=== PATIENT | female | born 1930 | race Caucasian/White ===

== ENCOUNTER 2016-08-28 10:50 | Emergency (ER) | payer BC, OTHER ==
[2016-08-28 10:56] VITALS: TEMP 98.4; BMI 21.6
--- NOTE | 2016-08-28 11:09 | PDOC ---
History of Present Illness - General History Source: Patient, Family, Old Records Exam Limitations: No Limitations - History of Present Illness Initial Comments: 08/28/16 12:08 The patient is a 86 year old female, with a significant past medical history of HTN, ITP, TIA, valved leakage, blocked artery, HLD, kindey cysts and liver cysts who presents to the emergency department with a head injury that occurred today after a fall. She states that she fell backwards on the kitchen floor, hitting her head. She denies any loss of consciousness. She was not able to get up on her own. But she was able to ambulate to from the car into the ED. She denies any other kind of injuries. The patient denies chest pain, shortness of breath, headache and dizziness. Allergies: Penicillin, metoprolol, coreg, clindamycin, Diovan, BENICAR Past surgical history: Appendectomy, varicose veins, tumor removed from ovaries Social history: No alcohol, tobacco or drug use reported <Larry Gudino - Last Filed: 08/28/16 12:08> <Roman Simon - Last Filed: 08/28/16 13:36> - General Chief Complaint: Laceration Stated Complaint: HEAD INJURY/LACERATION Time Seen by Provider: 08/28/16 11:02 Past History <Larry Gudino - Last Filed: 08/28/16 12:08> - Past Medical History Anemia: (ITP) Asthma: No Cancer: No Cardiac Disorders: Yes (valve leakage, blocked artery) CVA: No COPD: No CHF: No Dementia: No Diabetes: No GI Disorders: No Disorders: Yes (Kidney cyst) HTN: Yes Hypercholesterolemia: Yes Liver Disease: Yes (liver cyst) Psychiatric Problems: Yes (ANXIETY.) Seizures: No Thyroid Disease: No - Surgical History 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) Appendectomy: Yes Cardiac Surgery: Yes (Varicose Veins) Cholecystectomy: No Lung Surgery: No Neurologic Surgery: No Orthopedic Surgery: No - Immunization History Immunization Up to Date: Yes - Psycho/Social/Smoking Cessation Hx Anxiety: Yes Suicidal Ideation: No Smoking Status: No Smoking History: Never smoked Have you smoked in the past 12 months: No Number of Cigarettes Smoked Daily: 0 Hx Alcohol Use: No Drug/Substance Use Hx: No Substance Use Type: None Hx Substance Use Treatment: No <Roman Simon - Last Filed: 08/28/16 13:36> - Past Medical History Allergies/Adverse Reactions: Allergies Allergy/AdvReac Type Severity Reaction Status Date / Time penicillin G Allergy Unknown Verified 08/28/16 10:53 carvedilol [From Coreg] Allergy Verified 08/28/16 10:53 metoprolol succinate Allergy Verified 08/28/16 10:53 [From Toprol XL] clindamycin AdvReac Unknown DIARRHEA Verified 08/28/16 10:53 metoprolol AdvReac Unknown Verified 08/28/16 10:53 valsartan [From Diovan] AdvReac Unknown Verified 08/28/16 10:53 ESTRACE CREAM Allergy Uncoded 08/28/16 10:53 BENICAR AdvReac Uncoded 08/28/16 10:53 Home Medications: Ambulatory Orders Atenolol [Tenormin -] 50 mg PO BID 01/07/15 Bupropion HCl [Zyban] 150 mg PO BID 01/07/15 Diazepam 10 mg PO TID PRN 01/07/15 Lisinopril [Prinivil -] 40 mg PO BID 01/07/15 Lovastatin 40 mg PO DAILY 01/07/15 Tramadol HCl [Ultram -] 50 mg PO TID 02/14/15 Review of Systems - Review of Systems Constitutional: No: Chills, Fever HEENTM: No: Recent change in vision Respiratory: No: Shortness of Breath Cardiac (ROS): No: Chest Pain, Syncope ABD/GI: No: Nausea, Vomiting Neurological: No: Headache All Other Systems: Reviewed and Negative <Roman Simon - Last Filed: 08/28/16 13:36> *Physical Exam - Vital Signs Last Vital Signs Temp Pulse Resp BP Pulse Ox 98.4 F 65 18 136/58 98 08/28/16 10:52 08/28/16 10:52 08/28/16 10:52 08/28/16 10:52 08/28/16 10:52 - Physical Exam Comments: 08/28/16 12:09 General: Patient is alert and in no acute distress. Speech is clear and appropriate. Head: (+) 4 mm laceration to temporal region with mild oozing. No underlying scalp hematoma. HEENT: Pupils are equal round and reactive to light, extraocular movements are intact. The tympanic membranes are clear, no hemotympanum. No facial deformity/tenderness, no septal hematoma. The oropharynx is clear. Neck: The trachea is midline, there is no stridor. There is no midline cervical spine tenderness, full range of motion of neck. Chest: Nontender, no ecchymosis or abrasions. Heart: S1-S2, regular rate and rhythm. No murmurs. Lungs: Clear to auscultation bilaterally. Symmetric chest rise. Abdomen: Soft/nontender/nondistended. Bowel sounds are normal. There is no abdominal or flank ecchymosis. Back/Pelvis: There is no midline spine tenderness or step-off. Pelvis is stable and nontender. Extremities: There is no extremity deformity or joint swelling. No focal bony tenderness throughout. 2+ distal pulses throughout. Neuro: Alert and oriented x3. Cranial nerves II through XII are intact. 5 out of 5 motor strength x4 extremities. Finger-nose- finger is intact. No pronator drift. Gait is stable. Skin: No abrasions/hematomas/lacerations. Psych: Affect is appropriate. <Larry Gudino - Last Filed: 08/28/16 12:08> - Vital Signs Last Vital Signs Temp Pulse Resp BP Pulse Ox 98.4 F 65 18 136/58 98 08/28/16 10:52 08/28/16 10:52 08/28/16 10:52 08/28/16 10:52 08/28/16 10:52 <Roman Simon - Last Filed: 08/28/16 13:36> ED Treatment Course - LABORATORY CBC & Chemistry Diagram: 08/28/16 11:41 08/28/16 11:41 - RADIOLOGY Radiograph Interpretation: 08/28/16 12:[address] Reviewed by: Dr. Federico Cheema Impression: No evidence of acute intracranial pathology. Cervical spine CT Reviewed by: Dr. Federico Cheema Impression: No fracture is identified <Larry Gudino - Last Filed: 08/28/16 12:08> - LABORATORY CBC & Chemistry Diagram: 08/28/16 11:41 08/28/16 11:41 - RADIOLOGY Radiology Studies Ordered: Category Date Time Status CERVICAL SPINE CT W/O CONTR [CT] Stat CT Scan 08/28/16 11:[address] WITHOUT CONTRAST [CT] Stat CT Scan 08/28/16 11:02 Ordered <Roman Simon - Last Filed: 08/28/16 13:36> Medical Decision Making - Medical Decision Making 08/28/16 11:24 A portion of this note was documented by scribe services under my direction. I have reviewed the details of the note, within reason, and agree with the documentation with the following case summary and management plan written by me. 86-year-old female with history of hypertension, TIA, ITP with chronic thrombocytopenia (last platelet count was 37 earlier this month) presents with mechanical trip and fall this morning, struck her bottom/low back the ground and then hit the right side of her head on the door frame. No lightheadedness or syncope, no generalized headache or vision change/speech change, no nausea or vomiting. Has been applying pressure to a right scalp wound which continues to bleed, presents for evaluation. Vital signs normal. Well-appearing, seated up in stretcher holding pressure to her scalp Less than half centimeter very superficial laceration to the right temporal scalp with some bruising, no underlying hematoma Remainder of trauma exam is unremarkable 86-year-old female with known thrombocytopenia with minor head injury, small scalp laceration. Check platelets CT head Wound care: will attempt local lido with epi injection, apply one staple 08/28/16 13:31 LACERATION REPAIR: The skin was prepped with Saline. 2% lidocaine with epinephrine was injected subcutaneously for local anesthesia. Normal saline lavage, high pressure, high volume was performed. 3 juan f were placed. Bacitracin was applied. Patient was advised regarding signs and symptoms of infection that would indicate a need to see the doctor immediately, as well as instructions for suture removal. Bleeding improved/resolved after epi injection and juan f. Platelets 64, improved from prior. Remains neuro intact without other complaints. Son at bedside. Both agree with d /c plan, understand strict return criteria. <Roman Simon - Last Filed: 08/28/16 13:36> *DC/Admit/Observation/Transfer - Attestations Scribe Attestion: 08/28/16 12:11 Documentation prepared by Larry Gudino, acting as medical communication specialist for Roman Simon MD <Larry Gudino - Last Filed: 08/28/16 12:08> <Roman Simon - Last Filed: 08/28/16 13:36> Diagnosis at time of Disposition: Chronic ITP (idiopathic thrombocytopenic purpura), Thrombocytopenia Scalp laceration Qualifiers: Encounter type: initial encounter Qualified Code(s): S01.01XA - Laceration without foreign body of scalp, initial encounter Head injury Qualifiers: Encounter type: initial encounter Qualified Code(s): S09.90XA - Unspecified injury of head, initial encounter - Discharge Dispostion Disposition: HOME Condition at time of disposition: Improved - Referrals Referrals: Epifanio Mooney MD [Primary Care Provider] - - Patient Instructions Printed Discharge Instructions: DI for Closed Head Injury, DI for Laceration Repair -- [place] Additional Instructions: Activity as tolerated. Stay hydrated. Your platelet count today is 64, a CAT scan shows no bleeding. Keep the wound clean and dry for 72 hours, then avoid soaking or scrubbing. Return for staple removal in 7-10 days. Continue your medications as previously prescribed by your physician. You should follow up with your primary doctor as soon as possible regarding today's emergency department visit. Return to the emergency department for any new or concerning symptoms, particularly headache or confusion or vomiting or focal weakness, redness or swelling or bleeding.
[2016-08-28] MEDS ORDERED: LIDOCAINE 1%/EPI 1:100000 (20 ML MULTI DOSE VIAL) INF ONE (11:28)
[2016-08-28] MEDS ORDERED: LIDOCAINE 1%/EPI 1:100000 (50 ML MULTI DOSE VIAL) ONE (11:31)
[2016-08-28 12:06] LABS: BASOPHIL 0.9 % (0-2.0); EOSINOPHIL 3.4 % (0-4.5); MCH 30.1 pg (25.7-33.7); MCHC 34.5 g/dl (32.0-36.0); MEAN CELL VOLUME 87.1 fl (80-96); MEAN PLT VOLUME 11.1 fl (7.5-11.1); NEUTROPHILS 73.6 % (42.8-82.8); RDW 14.1 % (11.6-15.6); WHITE BLOOD COUNT 5.9 K/mm3 (4.0-10.0)
[2016-08-28 12:21] LABS: ALBUMIN 4.4 g/dl (3.4-5.0); ANION GAP 8 (8-16); BILIRUBIN,TOTAL 0.8 mg/dL (0.2-1.0); CALCIUM 9.6 mg/dL (8.5-10.1); CO2 32 mmol/L (21-32); CREATININE 0.7 mg/dL (0.55-1.02); GLUCOSE,RANDOM 99 mg/dL (74-106); SGPT/ALT 33 U/L (12-78); TOT PROT 7.3 g/dl (6.4-8.2)
[2016-08-28 12:22] LABS: ALK PHOS 79 U/L (45-117); SGOT/AST 39 U/L (15-37)
[2016-08-28 12:30] LABS: INR 0.97 (0.82-1.09); PROTHROMBIN TIME (PATIENT) 10.7 SEC (9.98-11.88)
[2016-08-28 13:13] LABS: PLATELET COUNT 64 K/MM3 (134-434); PLATELET ESTIMATE DECREASED (NORMAL)
[2016-08-28 14:08] VITALS: BP 151/92; PULSE 70
== END 2016-08-28 14:07 | disposition home or self-care (01) ==
LOC: JER 10:50 → SUPCPDRO 10:50 → JER 14:07
PROC: 0HQ0XZZ Repair Scalp Skin, External Approach (ICD-10-PCS; principal; 2016-08-28)
DX: S01.01XA Laceration without foreign body of scalp, initial encounter (principal); W01.198A Fall on same level from slipping, tripping and stumbling with subsequent striking against other object, initial encounter; Y93.89 Activity, other specified; Y92.010 Kitchen of single-family (private) house as the place of occurrence of the external cause; I10 Essential (primary) hypertension; D69.3 Immune thrombocytopenic purpura; E78.00 Pure hypercholesterolemia, unspecified; F41.9 Anxiety disorder, unspecified; Z86.73 Personal history of transient ischemic attack (TIA), and cerebral infarction without residual deficits; I25.10 Atherosclerotic heart disease of native coronary artery without angina pectoris
CPT/HCPCS: 12001-25; 36415; 70450-TC; 72125-TC; 80053; 85025; 85610; 99283-25

== ENCOUNTER 2016-09-14 13:27 | Emergency (ER) | payer BC, OTHER ==
[2016-09-14 13:33] VITALS: TEMP 98.5; BMI 22.1
--- NOTE | 2016-09-14 14:44 | PDOC ---
History of Present Illness - General History Source: Patient Exam Limitations: No Limitations <Dave Almanzar - Last Filed: 09/14/16 16:01> - General History Source: Patient, Old Records Exam Limitations: No Limitations - History of Present Illness Initial Comments: The patient is an 86 year old female with past medical history of hypertension, Darvocet appear, TIA, coronary disease, hyperlipidemia, kidney cysts, liver cysts who presents with persistent headaches, nausea and generalized weakness. The patient was seen on August 28 s/p mechanical fall and hit the back of her head. She had a CAT scan the head performed which demonstrated no acute findings and had 3 juan f placed. Since her discharge, patient has continued to have headaches, nausea, and general malaise.Patient states that she came to the emergency department today due to the persistence of her symptoms. The patient notes that she did have her juan f removed at her primary care doctor' s office several days ago. Patient is also complaining about some lumbar spine pain since the fall. Denies fevers or chills. Denies vomiting, diarrhea, dysuria. <Cory Proctor - Last Filed: 09/14/16 16:03> - General Chief Complaint: Headache Stated Complaint: headache Time Seen by Provider: 09/14/16 13:35 Past History - Past Medical History Anemia: (ITP) Asthma: No Cancer: No Cardiac Disorders: Yes (valve leakage, blocked artery) CVA: No COPD: No CHF: No Dementia: No Diabetes: No GI Disorders: No Disorders: Yes (Kidney cyst) HTN: Yes Hypercholesterolemia: Yes Liver Disease: Yes (liver cyst) Psychiatric Problems: Yes (ANXIETY.) Seizures: No Thyroid Disease: No - Surgical History 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) Appendectomy: Yes Cardiac Surgery: Yes (Varicose Veins) Cholecystectomy: No Lung Surgery: No Neurologic Surgery: No Orthopedic Surgery: No - Immunization History Immunization Up to Date: Yes - Psycho/Social/Smoking Cessation Hx Anxiety: Yes Suicidal Ideation: No Smoking Status: No Smoking History: Never smoked Have you smoked in the past 12 months: No Number of Cigarettes Smoked Daily: 0 Hx Alcohol Use: No Drug/Substance Use Hx: No Substance Use Type: None Hx Substance Use Treatment: No <Dave Almanzar - Last Filed: 09/14/16 16:01> <Cory Proctor - Last Filed: 09/14/16 16:03> - Past Medical History Allergies/Adverse Reactions: Allergies Allergy/AdvReac Type Severity Reaction Status Date / Time penicillin G Allergy Unknown Verified 09/14/16 13:34 carvedilol [From Coreg] Allergy Verified 09/14/16 13:34 metoprolol succinate Allergy Verified 09/14/16 13:34 [From Toprol XL] clindamycin AdvReac Unknown DIARRHEA Verified 09/14/16 13:34 metoprolol AdvReac Unknown Verified 09/14/16 13:34 valsartan [From Diovan] AdvReac Unknown Verified 09/14/16 13:34 ESTRACE CREAM Allergy Uncoded 09/14/16 13:34 BENICAR AdvReac Uncoded 09/14/16 13:34 Home Medications: Ambulatory Orders Atenolol [Tenormin -] 50 mg PO BID 01/07/15 Bupropion HCl [Zyban] 150 mg PO BID 01/07/15 Diazepam 10 mg PO TID PRN 01/07/15 Lisinopril [Prinivil -] 40 mg PO BID 01/07/15 Lovastatin 40 mg PO DAILY 01/07/15 Tramadol HCl [Ultram -] 50 mg PO TID 02/14/15 Review of Systems - Review of Systems Able to Perform ROS?: Yes Comments:: GENERAL/CONSTITUTIONAL: No fever or chills. No weakness. HEAD, EYES, EARS, NOSE AND THROAT: No change in vision. No ear pain or discharge. No sore throat. CARDIOVASCULAR: No chest pain or shortness of breath. RESPIRATORY: No cough, wheezing, or hemoptysis. GASTROINTESTINAL: No nausea, vomiting, diarrhea or constipation. GENITOURINARY: No dysuria, frequency, or change in urination. MUSCULOSKELETAL: No joint or muscle swelling or pain. No neck or back pain. SKIN: No rash NEUROLOGIC: (+) Headache No vertigo, loss of consciousness, or change in strength/sensation. ENDOCRINE: No increased thirst. No abnormal weight change. HEMATOLOGIC/LYMPHATIC: No anemia, easy bleeding, or history of blood clots. ALLERGIC/IMMUNOLOGIC: No hives or skin allergy. <Cory Proctor - Last Filed: 09/14/16 16:03> *Physical Exam - Vital Signs Last Vital Signs Temp Pulse Resp BP Pulse Ox 98.5 F 72 18 176/79 100 09/14/16 13:28 09/14/16 13:28 09/14/16 13:28 09/14/16 13:28 09/14/16 13:28 <Dave Almanzar - Last Filed: 09/14/16 16:01> - Vital Signs Last Vital Signs Temp Pulse Resp BP Pulse Ox 98.5 F 72 18 176/79 100 09/14/16 13:28 09/14/16 13:28 09/14/16 13:28 09/14/16 13:28 09/14/16 13:28 - Physical Exam Comments: GENERAL: Awake, alert, and fully oriented, in no acute distress HEAD: (+) Well healing granulating scar on right superior head EYES: PERRLA, EOMI, sclera anicteric, conjunctiva clear ENT: Auricles normal inspection, hearing grossly normal, nares patent, oropharynx clear without exudates. Moist mucosa NECK/BACK: (+) Normal ROM, supple, no lymphadenopathy, JVD, or masses. Tenderness approximately L5. Spinal tenderness on palpation. LUNGS: Breath sounds equal, clear to auscultation bilaterally. No wheezes, and no crackles HEART: Regular rate and rhythm, normal S1 and S2, no murmurs, rubs or gallops ABDOMEN: Soft, nontender, normoactive bowel sounds. No guarding, no rebound. No masses EXTREMITIES: Normal range of motion, no edema. No clubbing or cyanosis. No cords, erythema, or tenderness NEUROLOGICAL: Cranial nerves II through XII grossly intact. Normal speech. SKIN: Warm, Dry, normal turgor, no rashes or lesions noted. <Cory Proctor - Last Filed: 09/14/16 16:03> ED Treatment Course - RADIOLOGY Radiology Studies Ordered: Category Date Time Status HEAD CT WITHOUT CONTRAST [CT] Stat CT Scan 09/14/16 13:[address] W/O CONTRAST [CT] Stat CT Scan 09/14/16 13:44 Ordered <Dave Almanzar - Last Filed: 09/14/16 16:01> - RADIOLOGY Radiograph Interpretation: EXAM#: TYPE/EXAM: RESULT: [id number] CT/HEAD CT WITHOUT CONTRAST Status post fall 3 weeks ago. Persistent headaches. CT scan of the brain without intravenous contrast. Since 08/28/2016, there remains generalized volume loss, moderate ventricular dilatation and moderate chronic microvascular ischemic changes. Focal encephalomalacia in the left temporal lobe along the inferior margin of the left basal ganglia again seen. No mass lesion, gross acute infarct or intracranial hemorrhage is identified. There is no shift of the midline structures. The calvarium is intact. Visualized paranasal sinuses and mastoid air cells are well aerated IMPRESSION: No significant interval change or gross acute intracranial pathology is identified. Correlate clinically to determine further evaluation and follow-up Reported By: Caterina Rangel MD 09/14/16 1510 EXAM#: TYPE/EXAM: RESULT: [id number] CT/LUMBAR SPINE CT W/O CONTRAST Status post fall [address] scan of the lumbar spine without intravenous contrast. Coronal and sagittal reconstruction images were obtained. Compared to prior x- rays of the lumbosacral spine dated 01/28/2006 and prior sagittal reformatted images from a CT scan of the abdomen pelvis dated 12/24/2015 There is moderate levoscoliosis of the lumbar spine. The height and alignment of the vertebral bodies appear unremarkable without evidence of a compression fracture or subluxation. Mild degenerative disc disease and vacuum phenomena at T12-L1 and L2-L3 level. There is significant bilateral facet hypertrophy from L3-L4 through L4-L5 level. Mild disc bulge from L2-L3 through L5-S1 level Note is made of a partially included right hepatic cysts measuring approximately 4.7 cm. No paraspinal soft tissue mass is identified. IMPRESSION: Moderate levoscoliosis of the lumbar spine with multilevel mild degenerative disc disease and significant bilateral facet hypertrophy at multiple levels, as well. No gross compression fracture or subluxation is identified. Reported By: Caterina Rangel MD 09/14/16 1553 <Cory Proctor - Last Filed: 09/14/16 16:03> Medical Decision Making - Medical Decision Making 09/14/16 14:44 A portion of this note was documented by scribe services under my direction. I have reviewed the details of the note, within reason, and agree with the documentation with the following case summary and management plan written by me. Patient treated in the ED. Nursing notes are reviewed and incorporated into the medical decision-making. Vital signs reviewed. Peripheral IV access obtained by the nurse, laboratory studies are drawn and sent, reviewed and interpreted by myself. Vital Signs Temp Pulse Resp BP Pulse Ox 98.5 F 72 18 176/79 100 09/14/16 13:28 09/14/16 13:28 09/14/16 13:28 09/14/16 13:28 09/14/16 13:28 86 year old female with past medical history of hypertension, Darvocet appear, TIA, coronary disease, hyperlipidemia, kidney cysts, liver cysts presents with persistent headaches, nausea and generalized weakness. The patient was seen on August 28 and had a mechanical fall and hit the back of her head. She had a CAT scan the head performed which demonstrated no acute findings and had 3 juan f placed. Since her discharge, patient continued to feel headaches and nausea and general malaise. Denies fevers or chills. Denies vomiting, diarrhea, dysuria. Because of the persistence of symptoms, patient came into the ED. As of note, patient did have her juan f removed at her primary care doctor's office several days ago. The wound site appears well and granulating without difficulty. Patient is also complaining about some lumbar spine pain since the fall. Reports she had received no imaging at that time. I suspect the patient likely has a concussion. We'll obtain a CT head given the history of thyroid cytopenia to rule out rebleeding. We'll also obtain a lumbar spine imaging to rule out acute fractures. 09/14/16 15:59 Urine Test Results Urine Color Yellow 09/14/16 14:43 Urine Appearance Clear 09/14/16 14:43 Urine pH 7.0 (4.5-8) 09/14/16 14:43 Ur Specific [place] 1.010 (1.005-1.025) 09/14/16 14:43 Urine Protein Negative (NEGATIVE) 09/14/16 14:43 Urine Glucose (UA) Negative (NEGATIVE) 09/14/16 14:43 Urine Ketones Negative (NEGATIVE) 09/14/16 14:43 Urine Blood 1+ (NEGATIVE) H 09/14/16 14:43 Urine Nitrite Negative (NEGATIVE) 09/14/16 14:43 Urine Bilirubin Negative (NEGATIVE) 09/14/16 14:43 Ur Leukocyte Esterase Negative (NEGATIVE) 09/14/16 14:43 CT head and lumbar spine reviewed. No acute findings. Pt is ambulatory. Likely concussion. Concussion information given to patient and to son. Pt has an appointment with Dr. Mooney right after the ED visit. I discussed the physical exam findings, ancillary test results and final diagnoses with the patient. I answered all of the patient's questions. The patient was satisfied with the care received and felt comfortable with the discharge plan and treatment plan. The patient will call their primary care physician within 24 hours to arrange follow-up and will return to the Emergency Department with any new, persistant or worsening symptoms. <Dave Almanzar - Last Filed: 09/14/16 16:01> *DC/Admit/Observation/Transfer <Dave Almanzar - Last Filed: 09/14/16 16:01> - Attestations Scribe Attestion: Documentation prepared by Cory Proctor, acting as medical assistant cardiology for Dave Almanzar MD. <Cory Proctor - Last Filed: 09/14/16 16:03> Diagnosis at time of Disposition: Concussion Qualifiers: Encounter type: initial encounter Loss of consciousness presence/duration: without LOC Qualified Code(s): S06.0X0A - Concussion without loss of consciousness, initial encounter - Discharge Dispostion Disposition: HOME Condition at time of disposition: Stable - Referrals Referrals: Epifanio Mooney MD [Primary Care Provider] - - Patient Instructions Printed Discharge Instructions: DI for Postconcussion Syndrome, DI for Concussion Additional Instructions: Please bring the copy of your CT results to your doctor. The Head CT shows no acute findings. Please follow up with your regular doctor.
[2016-09-14 15:12] LABS: URINE APPEARANCE Clear; URINE BILIRUBIN Negative (NEGATIVE); URINE GLUCOSE (UA) Negative (NEGATIVE); URINE KETONE Negative (NEGATIVE); URINE LEUK ESTERASE Negative (NEGATIVE); URINE NITRITE Negative (NEGATIVE); URINE PROTEIN Negative (NEGATIVE); URINE UROBILINOGEN 0.2 E.U/dl (0.2-1.0)
[2016-09-14 15:13] LABS: URINE COLOR YELLOW
[2016-09-14] MEDS ORDERED: METOCLOPRAMIDE HCL 10 MG TABLET (FP) PO ONE ×2 (15:20→15:44)
[2016-09-14] MEDS ORDERED: ACETAMINOPHEN 325 MG TABLET (FP) PO ONE (15:20)
[2016-09-14] MEDS ORDERED: ACETAMINOPHEN 325 MG TABLET (FP) ONE (15:44)
[2016-09-14 16:11] VITALS: BP 165/72; PULSE 70
[2016-09-14 19:14] LABS: URINE BLOOD 1+ (NEGATIVE)
== END 2016-09-14 16:12 | disposition home or self-care (01) ==
LOC: FER 13:27
DX: S06.0X0A Concussion without loss of consciousness, initial encounter (principal); I10 Essential (primary) hypertension; Z86.73 Personal history of transient ischemic attack (TIA), and cerebral infarction without residual deficits; F41.9 Anxiety disorder, unspecified; E78.00 Pure hypercholesterolemia, unspecified; D69.3 Immune thrombocytopenic purpura; W18.30XA Fall on same level, unspecified, initial encounter; Y93.9 Activity, unspecified; Y92.9 Unspecified place or not applicable
CPT/HCPCS: 70450-TC; 72131-TC; 81003; 87086; 99282-25

== ENCOUNTER 2016-11-18 09:49 | Inpatient (IN) | payer BC, OTHER ==
[2016-11-18 10:01] VITALS: BMI 22.3
--- NOTE | 2016-11-18 10:23 | PDOC ---
History of Present Illness <Fe Huddleston - Last Filed: 11/18/16 12:33> - General History Source: Patient Exam Limitations: No Limitations - History of Present Illness Initial Comments: 11/18/16 10:27 The patient is an 86 year old female with a significant past medical history of ITP, hypertension, hyperlipidemia, coronary disease, TIA, kidney cysts, and liver cysts, sent by PCP to the Emergency Department with low platelet count in her blood work done on Tuesday. The patient reports that she has been treated for ITP three times, first with prednisone, then with gamma globulin, and last with rituxan. She reports that her last treatment was almost 2 years ago. She states that her PCP called her yesterday to inform her of her blood work results and suggested she come to the ED. The patient states that there is blood in her urine determined by lab work, but denies blood in her urine based on appearance. She states that her last fall was over one month ago. The patient denies fever, chills, and cough. Patient denies headache, dizziness , and blurry vision. Patient denies easy bleeding. Patient denies hematochezia. Patient denies chest pain, palpitations, and shortness of breath. Allergies: penicillin, carvedilol, metoprolol succinate, clindamycin, metoprolol , valsartan, benicar PCP: Dr. Mooney Records And Information Manager: Dr. 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 <Neeru Augustine - Last Filed: 11/18/16 13:11> - General Chief Complaint: Revisit, Lab Variance Stated Complaint: LOW BLOOD LEVEL (PCP SENT) Time Seen by Provider: 11/18/16 10:07 Past History - Past Medical History Anemia: (ITP) Asthma: No Cancer: No Cardiac Disorders: Yes (valve leakage, blocked artery) CVA: No COPD: No CHF: No Dementia: No Diabetes: No GI Disorders: No Disorders: Yes (Kidney cyst) HTN: Yes Hypercholesterolemia: Yes Liver Disease: Yes (liver cyst) Psychiatric Problems: Yes (ANXIETY.) Seizures: No Thyroid Disease: No - Surgical History 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) Appendectomy: Yes Cardiac Surgery: Yes (Varicose Veins) Cholecystectomy: No Lung Surgery: No Neurologic Surgery: No Orthopedic Surgery: No - Immunization History Immunization Up to Date: Yes - Psycho/Social/Smoking Cessation Hx Anxiety: Yes Suicidal Ideation: No Smoking Status: No Smoking History: Never smoked Have you smoked in the past 12 months: No Number of Cigarettes Smoked Daily: 0 Information on smoking cessation initiated: No Hx Alcohol Use: No Drug/Substance Use Hx: No Substance Use Type: None Hx Substance Use Treatment: No <Fe Huddleston - Last Filed: 11/18/16 12:33> <Neeru Augustine - Last Filed: 11/18/16 13:11> - Past Medical History Allergies/Adverse Reactions: Allergies Allergy/AdvReac Type Severity Reaction Status Date / Time penicillin G Allergy Unknown Verified 09/14/16 13:34 carvedilol [From Coreg] Allergy Verified 09/14/16 13:34 ciprofloxacin [From Cipro] Allergy Verified 11/18/16 11:17 ciprofloxacin HCl Allergy Verified 11/18/16 11:17 [From Cipro] metoprolol succinate Allergy Verified 09/14/16 13:34 [From Toprol XL] clindamycin AdvReac Unknown DIARRHEA Verified 09/14/16 13:34 metoprolol AdvReac Unknown Verified 09/14/16 13:34 valsartan [From Diovan] AdvReac Unknown Verified 09/14/16 13:34 ESTRACE CREAM Allergy Uncoded 09/14/16 13:34 BENICAR AdvReac Uncoded 09/14/16 13:34 Home Medications: Ambulatory Orders Atenolol [Tenormin -] 50 mg PO BID 01/07/15 Bupropion HCl [Zyban] 150 mg PO BID 01/07/15 Diazepam 10 mg PO TID PRN 01/07/15 Lisinopril [Prinivil -] 40 mg PO BID 01/07/15 Lovastatin 40 mg PO DAILY 01/07/15 Tramadol HCl [Ultram -] 50 mg PO TID PRN 02/14/15 Review of Systems - Review of Systems Able to Perform ROS?: Yes Comments:: 11/18/16 10:28 CONSTITUTIONAL: Present: + low platelet count Absent: fever, no chills, no fatigue EYES: Absent: visual changes ENT: Absent: ear pain, no sore throat CARDIOVASCULAR: Absent: chest pain, no palpitations RESPIRATORY: Absent: cough, no SOB GI: Absent: abdominal pain, no nausea, no vomiting, no constipation, no diarrhea GENITOURINARY: Absent: dysuria, no frequency, no hematuria MUSCULOSKELETAL: Absent: back pain, no arthralgia, no myalgia SKIN: Absent: rash NEURO: Absent: headache <Neeru Augustine - Last Filed: 11/18/16 13:11> *Physical Exam - Vital Signs Last Vital Signs Temp Pulse Resp BP Pulse Ox 97.6 F 69 18 150/82 97 11/18/16 09:53 11/18/16 09:53 11/18/16 09:53 11/18/16 09:53 11/18/16 09:53 <FlaquitoFe gabriel - Last Filed: 11/18/16 12:33> - Vital Signs Last Vital Signs Temp Pulse Resp BP Pulse Ox 97.6 F 69 18 150/82 97 11/18/16 09:53 11/18/16 09:53 11/18/16 09:53 11/18/16 09:53 11/18/16 09:53 - Physical Exam Comments: 11/18/16 10:28 GENERAL: Well developed, well nourished. Awake and alert. No acute distress. HEENT: Normocephalic, atraumatic. PERRLA, EOMI. No conjunctival pallor. Sclera are non- icteric. Moist mucous membranes. Oropharynx is clear. NECK: Supple. Full ROM. No JVD. Carotid pulses 2+ and symmetric, without bruits. No thyromegaly. No lymphadenopathy. CARDIOVASCULAR: Regular rate and rhythm. 2/6 systolic murmur. No rubs, or gallops. Distal pulses are 2+ and symmetric. PULMONARY: No evidence of respiratory distress. Lungs clear to auscultation bilaterally. No wheezing, rales or rhonchi. ABDOMINAL: Soft. Non-tender. Non-distended. No rebound or guarding. No organomegaly. Normoactive bowel sounds. MUSCULOSKELETAL Normal range of motion at all joints. No bony deformities or tenderness. No CVA tenderness. EXTREMITIES: No cyanosis. No clubbing. No edema. No calf tenderness. SKIN: Warm and dry. Normal capillary refill. No rashes. No jaundice. NEUROLOGICAL: Alert, awake, appropriate. Cranial nerves 2-12 intact. Normal speech. No focal neurological deficits. <Neeru Augustine - Last Filed: 11/18/16 13:11> ED Treatment Course - LABORATORY CBC & Chemistry Diagram: 11/18/16 10:40 11/18/16 10:40 <Fe Huddleston - Last Filed: 11/18/16 12:33> - LABORATORY CBC & Chemistry Diagram: 11/18/16 10:40 11/18/16 10:40 <Neeru Augustine - Last Filed: 11/18/16 13:11> Medical Decision Making - Medical Decision Making 11/18/16 11:00 Pt presents to the ED after sent to ED for platelets of 16 in blood draw from PMD's office. Known history of ITP. 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 <Fe Huddleston - Last Filed: 11/18/16 12:33> - Medical Decision Making 11/18/16 11:55 Dr. Pritchett was called at his office at 11:55. Dr. Yoder is covering, and was called at her cell at [phone]. 11/18/16 12:21 Dr. Yoder returned call and spoke to Dr. Huddletson about the patient's care. <Neeru Augustine - Last Filed: 11/18/16 13:11> *DC/Admit/Observation/Transfer - Discharge Dispostion Admit: Yes Decision to Admit order Date/Time: 11/18/16 12:34 <Fe Huddleston - Last Filed: 11/18/16 12:33> - Attestations Scribe Attestion: 11/18/16 10:30 Documentation prepared by Neeru Augustine, acting as medical administrative specialist for Fe Huddleston MD. <Neeru Augustine - Last Filed: 11/18/16 13:11> Diagnosis at time of Disposition: Thrombocytopenia - Referrals Referrals: Epifanio Mooney MD [Primary Care Provider] -
[2016-11-18 10:56] LABS: BASOPHIL 1.1 % (0-2.0); EOSINOPHIL 1.9 % (0-4.5); MCH 30.8 pg (25.7-33.7); MCHC 34.6 g/dl (32.0-36.0); MEAN PLT VOLUME 9.9 fl (7.5-11.1); NEUTROPHILS 71.2 % (42.8-82.8); RDW 13.5 % (11.6-15.6); WHITE BLOOD COUNT 5.7 K/mm3 (4.0-10.0)
[2016-11-18 11:07] LABS: PLATELET COUNT 17 K/MM3 (134-434)
[2016-11-18 11:12] LABS: ANION GAP 8 (8-16); CALCIUM 8.6 mg/dL (8.5-10.1); CO2 28 mmol/L (21-32); CREATININE 0.8 mg/dL (0.55-1.02); GLUCOSE,RANDOM 98 mg/dL (74-106); SGOT/AST 26 U/L (15-37); SGPT/ALT 28 U/L (12-78)
[2016-11-18 11:14] LABS: ALK PHOS 87 U/L (45-117); BILIRUBIN,TOTAL 0.5 mg/dL (0.2-1.0); TOT PROT 6.6 g/dl (6.4-8.2)
[2016-11-18] MEDS ORDERED: DEXAMETHASONE SOD PHOSPHATE 20 MG/5 ML VIAL IVPB ONE (12:23)
[2016-11-18] MEDS ORDERED: DEXAMETHASONE SOD PHOSPHATE 10 MG/1 ML VIAL ONE (12:30)
[2016-11-18] MEDS ORDERED: IMMUNE GLOBULIN (IgG) 10 GM VIAL IVPB SCH (13:00)
[2016-11-18] MEDS ORDERED: IMMUNE GLOBULIN (IgG) 20 GM VIAL IVPB SCH (13:06)
[2016-11-18] MEDS ORDERED: traMADol HCL 50 MG TABLET PO PRN (13:51)
[2016-11-18] MEDS ORDERED: ONDANSETRON 4 MG/2 ML VIAL IVPB PRN (13:53)
[2016-11-18] MEDS ORDERED: ACETAMINOPHEN 325 MG TABLET (FP) PO PRN (13:53)
--- NOTE | 2016-11-18 13:57 | HP ---
Admitting History and Physical - Primary Care Physician PCP: Eipfanio Mooney - Admission Chief Complaint: My platelets are low History of Present Illness: Ms Gutierrez is a pleasant 86 year old female who comes in for low platelets. She is without complaints. She denies fevers, chills, lightheadedness, passing out, chest pain, shortness of breath at rest, nausea, vomiting, diarrhea, constipation, blood in stool or urine, difficulty or pain on urination, or swelling. She says she has some dyspnea on exertion but this has been present for many years and it is unchanged. History Source: Patient Limitations to Obtaining History: No Limitations - Past Medical History Cardiovascular: Yes: CAD (patient states that they cannot do anything about it due to her thrombocytopenia), HTN, Hyperlipdemia, Other (valve disease, patient says that she has something wrong with her valve but cannot remember the name) Heme/Onc: Yes: Other (ITP) - Past Surgical History Past Surgical History: Yes: Hysterectomy - Smoking History Smoking history: Never smoked Have you smoked in the past 12 months: No Aproximately how many cigarettes per day: 0 - Alcohol/Substance Use Hx Alcohol Use: No - Social History Usual Living Arrangement: Yes: With Child ADL: Family Assistance History of Recent Travel: No Home Medications - Allergies Allergies/Adverse Reactions: Allergies Allergy/AdvReac Type Severity Reaction Status Date / Time penicillin G Allergy Unknown Verified 09/14/16 13:34 carvedilol [From Coreg] Allergy Verified 09/14/16 13:34 ciprofloxacin [From Cipro] Allergy Verified 11/18/16 11:17 ciprofloxacin HCl Allergy Verified 11/18/16 11:17 [From Cipro] metoprolol succinate Allergy Verified 09/14/16 13:34 [From Toprol XL] clindamycin AdvReac Unknown DIARRHEA Verified 09/14/16 13:34 metoprolol AdvReac Unknown Verified 09/14/16 13:34 valsartan [From Diovan] AdvReac Unknown Verified 09/14/16 13:34 ESTRACE CREAM Allergy Uncoded 09/14/16 13:34 BENICAR AdvReac Uncoded 09/14/16 13:34 - Home Medications Home Medications: Ambulatory Orders Atenolol [Tenormin -] 50 mg PO BID 01/07/15 Bupropion HCl [Zyban] 150 mg PO BID 01/07/15 Diazepam 10 mg PO TID PRN 01/07/15 Lisinopril [Prinivil -] 40 mg PO BID 01/07/15 Lovastatin 40 mg PO DAILY 01/07/15 Tramadol HCl [Ultram -] 50 mg PO TID PRN 02/14/15 Family Disease History - Family Disease History Family Disease History: Heart Disease: Mother, Brother Review of Systems Findings/Remarks: full review of systems obtained, as per HPI and otherwise negative Physical Examination Vital Signs: Vital Signs Temperature 97.6 F 11/18/16 09:53 Pulse Rate 69 11/18/16 09:53 Respiratory Rate 18 11/18/16 09:53 Blood Pressure 150/82 11/18/16 09:53 O2 Sat by Pulse Oximetry (%) 97 11/18/16 09:53 Constitutional: Yes: Well Nourished, No Distress, Calm Eyes: Yes: Conjunctiva Clear, EOM Intact, PERRL HENT: Yes: Atraumatic, Normocephalic Cardiovascular: Yes: Regular Rate and Rhythm. No: Gallop, Murmur, Rub Respiratory: Yes: Regular, CTA Bilaterally. No: Rales, Rhonchi, Wheezes Gastrointestinal: Yes: Normal Bowel Sounds, Soft. No: Distention, Tenderness Extremities: Yes: WNL Edema: No Labs: Laboratory Results - last 24 hr 11/18/16 11/18/16 11/18/16 10:40 10:40 10:40 WBC 5.7 RBC 4.87 Hgb 15.0 Hct 43.3 MCV 89.0 MCH 30.8 MCHC 34.6 RDW 13.5 Plt Count 17 L* D MPV 9.9 D Neutrophils % 71.2 Lymphocytes % 17.0 Monocytes % 8.8 Eosinophils % 1.9 Basophils % 1.1 Sodium 136 Potassium 3.8 Chloride 100 Carbon Dioxide 28 Anion Gap 8 BUN 13 Creatinine 0.8 Creat Clearance w eGFR > 60 Random Glucose 98 Calcium 8.6 Total Bilirubin 0.5 D AST 26 D ALT 28 Alkaline Phosphatase 87 Total Protein 6.6 Albumin 4.0 Blood Type B POSITIVE Antibody Screen Negative Problem List - Problems (1) Chronic ITP (idiopathic thrombocytopenic purpura) Assessment/Plan: -presents with severe thrombocytopenia without bleeding -admit to med surg -hematology consulted -IVIg per hematology Code(s): D69.3 - IMMUNE THROMBOCYTOPENIC PURPURA (2) Hyperlipidemia Assessment/Plan: -continue statin Code(s): E78.5 - HYPERLIPIDEMIA, UNSPECIFIED Qualifiers: Hyperlipidemia type: pure hypercholesterolemia (3) Hypertension Assessment/Plan: -continue lisinopril and atenolol Code(s): I10 - ESSENTIAL (PRIMARY) HYPERTENSION Qualifiers: Hypertension type: essential hypertension Qualified Code(s): I10 - Essential (primary) hypertension (4) Anxiety Assessment/Plan: -continue bupropion and prn ativan Code(s): F41.9 - ANXIETY DISORDER, UNSPECIFIED
--- NOTE | 2016-11-18 14:54 | CONSULT ---
Consult Consult Specialty:: Hematology/Oncology Reason for Consultation:: thrombocytopenia - History of Present Illness History of Present Illness: Ms. Rice is a 86 year old female with history of refractory ITP and was diagnosed with ITP priro to 2011. In the past, she received steroids, IvIg, rituxan in 2016. She also has a PMH of hypertension, hyperlipidemia, coronary disease, TIA, kidney cysts, and liver cysts. Yesterday, she underwent her regular blood work which showed platelets of 17K and was sent by PCP to the Emergency Department The patient denies fever, chills, and cough. Patient denies headache, dizziness , and blurry vision. Patient denies easy bleeding. Patient denies any bleeding. Patient denies chest pain, palpitations, and shortness of breath. - History Source History Provided By: Patient, Family Member () Limitations to Obtaining History: No Limitations - Past Medical History Cardio/Vascular: Yes: CAD (patient states that they cannot do anything about it due to her thrombocytopenia), HTN, Hyperlipdemia, Other (valve disease, patient says that she has something wrong with her valve but cannot remember the name) Heme/Onc: Yes: Thrombocytopenia (ITP) - Past Surgical History Past Surgical History: Yes: Hysterectomy - Alcohol/Substance Use Hx Alcohol Use: No - Smoking History Smoking history: Never smoked Have you smoked in the past 12 months: No Aproximately how many cigarettes per day: 0 - Social History ADL: Family Assistance History of Recent Travel: No Home Medications - Allergies Allergies/Adverse Reactions: Allergies Allergy/AdvReac Type Severity Reaction Status Date / Time penicillin G Allergy Unknown Verified 09/14/16 13:34 carvedilol [From Coreg] Allergy Verified 09/14/16 13:34 ciprofloxacin [From Cipro] Allergy Verified 11/18/16 11:17 ciprofloxacin HCl Allergy Verified 11/18/16 11:17 [From Cipro] metoprolol succinate Allergy Verified 09/14/16 13:34 [From Toprol XL] clindamycin AdvReac Unknown DIARRHEA Verified 09/14/16 13:34 metoprolol AdvReac Unknown Verified 09/14/16 13:34 valsartan [From Diovan] AdvReac Unknown Verified 09/14/16 13:34 ESTRACE CREAM Allergy Uncoded 09/14/16 13:34 BENICAR AdvReac Uncoded 09/14/16 13:34 - Home Medications Home Medications: Ambulatory Orders Atenolol [Tenormin -] 50 mg PO BID 01/07/15 Bupropion HCl [Zyban] 150 mg PO BID 01/07/15 Diazepam 10 mg PO TID PRN 01/07/15 Lisinopril [Prinivil -] 40 mg PO BID 01/07/15 Lovastatin 40 mg PO DAILY 01/07/15 Tramadol HCl [Ultram -] 50 mg PO TID PRN 02/14/15 Family Disease History - Family Disease History Family History: Unremarkable Family Disease History: Heart Disease: Mother, Brother Review of Systems - Review of Systems Constitutional: denies: Chills, Fever, Loss of Appetite, Weakness Eyes: denies: Blind Spots, Blurred Vision, Eye Pain, Photophobia HENT: denies: Difficult Swallowing, Nasal Congestion Neck: denies: Lumps, Stiffness Respiratory: denies: Cough, Exercise Intolerance Gastrointestinal: denies: Abdominal Pain, Melena, Rectal Bleeding Genitourinary: denies: Burning, Urgency, Vaginal Bleeding Hematology/Lymphatic: reports: Other (no epistaxis). denies: Easily Bruised, Excessive Bleeding Physical Exam Vital Signs: Vital Signs Temperature 97.6 F 11/18/16 09:53 Pulse Rate 69 11/18/16 09:53 Respiratory Rate 18 11/18/16 09:53 Blood Pressure 150/82 11/18/16 09:53 O2 Sat by Pulse Oximetry (%) 97 11/18/16 09:53 Constitutional: Yes: Well Nourished, No Distress, Calm Eyes: Yes: Conjunctiva Clear HENT: Yes: Atraumatic, Normocephalic, Other Neck: Yes: Supple. No: Lymphadenopathy Cardiovascular: Yes: Regular Rate and Rhythm, Murmur Respiratory: Yes: Regular, CTA Bilaterally Gastrointestinal: Yes: Normal Bowel Sounds, Soft Extremities: Yes: WNL Edema: No Integumentary: Yes: Other (no mucosal petechiae noted). No: Bruising, Erythema , Jaundice, Petechiae Neurological: Yes: Alert, Oriented Problem List - Problems (1) Chronic ITP (idiopathic thrombocytopenic purpura) Assessment/Plan: Patient with refractory ITP Past treatment with steroids, Gamma globulin, and most recently in 2016 with 4 infusions of Rituxan Now with isolated thrombocytopenia, consistent with a flare of ITP. No trigger identified. Patient has no bleeding, wet purpura, no indication for platelet transfusion at this time, continue to monitor for bleeding Will treat with IVIG 400mg/kg/day x 5 days with pre meds of benadryl 25 and dex 8mg. Pharmacy aware, will be started once on the floor daily CBC. Gave Dex 40mg x 1 in the ER discussed the plan with patient and . Code(s): D69.3 - IMMUNE THROMBOCYTOPENIC PURPURA (2) Hypertension Assessment/Plan: continue with home meds fall precautions Code(s): I10 - ESSENTIAL (PRIMARY) HYPERTENSION Qualifiers: Hypertension type: essential hypertension Qualified Code(s): I10 - Essential (primary) hypertension
[2016-11-18] MEDS ORDERED: IMMUNE GLOB,GAM CAPRYLATE(IGG) 20 GM IVPB SCH (15:15)
[2016-11-18] MEDS ORDERED: LISINOPRIL 20 MG TABLET (FP) PO SCH (22:00)
[2016-11-18] MEDS: DOCUSATE SODIUM 100 MG CAPSULE (FP) PO SCH (22:23)
[2016-11-18] MEDS: LISINOPRIL 20 MG TABLET (FP) PO SCH (22:23)
[2016-11-18] MEDS: buPROPion HCL 75 MG TABLET PO SCH (22:23)
[2016-11-18] MEDS: ATORVASTATIN CA 10 MG TABLET (FP) PO SCH (22:23)
[2016-11-18] MEDS: ATENOLOL 50 MG TABLET (FP) PO SCH (22:23)
[2016-11-18] MEDS: diazePAM 5 MG TABLET PO PRN (22:25)
[2016-11-19 07:35] LABS: INR 1.05 (0.82-1.09); PROTHROMBIN TIME (PATIENT) 11.6 SEC (9.98-11.88)
[2016-11-19 07:36] LABS: ACTIVATED PTT 26.5 SECONDS (26.9-34.4)
[2016-11-19 07:42] LABS: MCH 30.4 pg (25.7-33.7); MCHC 34.6 g/dl (32.0-36.0); MEAN PLT VOLUME 10.9 fl (7.5-11.1); NEUTROPHILS 91.5 % (42.8-82.8); PLATELET COUNT 37 K/MM3 (134-434); RDW 13.5 % (11.6-15.6); WHITE BLOOD COUNT 13.3 K/mm3 (4.0-10.0)
[2016-11-19 07:57] LABS: ANION GAP 10 (8-16); CALCIUM 8.9 mg/dL (8.5-10.1); CO2 28 mmol/L (21-32); CREATININE 0.7 mg/dL (0.55-1.02); GLUCOSE,RANDOM 119 mg/dL (74-106); LDH 206 U/L (84-246); MAGNESIUM 2.2 mg/dL (1.8-2.4); PHOSPHOROUS 3.2 mg/dL (2.5-4.9)
[2016-11-19] MEDS ORDERED: IMMUNE GLOB,GAM CAPRYLATE(IGG) 20 GM IVPB SCH (10:00)
[2016-11-19] MEDS ORDERED: DEXAMETHASONE SOD PHOSPHATE 4 MG/1 ML VIAL IVPB SCH (10:00)
[2016-11-19] MEDS: DOCUSATE SODIUM 100 MG CAPSULE (FP) PO SCH ×2 (10:02→22:42)
[2016-11-19] MEDS: LISINOPRIL 20 MG TABLET (FP) PO SCH (10:02)
[2016-11-19] MEDS: POLYETHYLENE GLYCOL 3350 119 GM BTL PO SCH (10:03)
[2016-11-19] MEDS: ATENOLOL 50 MG TABLET (FP) PO SCH ×2 (10:03→22:41)
[2016-11-19] MEDS: buPROPion HCL 75 MG TABLET PO SCH ×2 (10:04→22:41)
--- NOTE | 2016-11-19 12:19 | PN ---
Progress Note, Physician History of Present Illness: Patient seen and examined this am. Patient tolerated yesterday's IVIG with no issues. She is feeling fine, She denies any bleeding. - Current Medication List Current Medications: Active Medications Acetaminophen (Tylenol -) 650 mg PO Q4H PRN PRN Reason: FEVER OR PAIN Last Admin: 11/19/16 07:59 Dose: 650 mg Atenolol (Tenormin -) 50 mg PO BID [facility] Last Admin: 11/19/16 10:03 Dose: 50 mg Atorvastatin Calcium (Lipitor -) 10 mg PO HS [facility] Last Admin: 11/18/16 22:23 Dose: 10 mg Bupropion HCl (Wellbutrin -) 150 mg PO BID [facility] Last Admin: 11/19/16 10:04 Dose: 150 mg Dexamethasone Sodium Phosphate (Decadron Injection -) 4 mg IVPB DAILY [facility] Stop: 11/23/16 09:59 Diazepam (Valium -) 10 mg PO TID PRN PRN Reason: ANXIETY Last Admin: 11/18/16 22:25 Dose: 10 mg Diphenhydramine HCl (Benadryl Injection -) 25 mg IVPB DAILY@1530 [facility] Stop: 11/22/16 23:59 Docusate Sodium (Colace -) 100 mg PO BID [facility] Last Admin: 11/19/16 10:02 Dose: 100 mg Immune Globulin (Gamunex-C) 200 mls @ 50 mls/hr IVPB DAILY@1600 [facility] Stop: 11/22/16 23:59 Lisinopril (Prinivil) 40 mg PO DAILY [facility] Last Admin: 11/19/16 10:02 Dose: 40 mg Ondansetron HCl (Zofran Injection) 4 mg IVPB Q6H PRN PRN Reason: NAUSEA Polyethylene Glycol (Miralax (For Daily Use) -) 17 gm PO DAILY [facility] Last Admin: 11/19/16 10:03 Dose: 17 gm Tramadol HCl (Ultram -) 50 mg PO TID PRN PRN Reason: PAIN - Objective Vital Signs: Vital Signs Temperature 97.4 F L 11/19/16 10:11 Pulse Rate 86 11/19/16 10:11 Respiratory Rate 16 11/19/16 10:11 Blood Pressure 157/86 11/19/16 10:11 O2 Sat by Pulse Oximetry (%) 96 11/18/16 22:00 Constitutional: Yes: Well Nourished, No Distress, Calm Eyes: Yes: EOM Intact HENT: Yes: Atraumatic, Normocephalic Neck: Yes: Trachea Midline. No: Lymphadenopathy Cardiovascular: Yes: Regular Rate and Rhythm, Murmur Respiratory: Yes: Regular, CTA Bilaterally Gastrointestinal: Yes: Normal Bowel Sounds, Soft Extremities: Yes: WNL Edema: No Labs: CBC, BMP 11/19/16 06:00 11/19/16 06:00 INR, PTT INR 1.05 (0.82-1.09) 11/19/16 06:00 Problem List - Problems (1) Chronic ITP (idiopathic thrombocytopenic purpura) Assessment/Plan: Patient with refractory ITP Past treatment with steroids, Gamma globulin, and most recently in 2016 with 4 infusions of Rituxan Now admitted with isolated thrombocytopenia, consistent with a flare of ITP. No trigger identified. s/p dose one of IvIg improvement in platelets noted. Code(s): D69.3 - IMMUNE THROMBOCYTOPENIC PURPURA (2) Hypertension Assessment/Plan: continue with home meds fall precautions Code(s): I10 - ESSENTIAL (PRIMARY) HYPERTENSION Qualifiers: Hypertension type: essential hypertension Qualified Code(s): I10 - Essential (primary) hypertension
[2016-11-19] MEDS ORDERED: amLODIPine BESYLATE 5 MG TABLET (FP) PO PRN (13:24)
[2016-11-19] MEDS ORDERED: oxyCODONE HCL 5 MG TABLET PO PRN (13:24)
[2016-11-19] MEDS: diazePAM 5 MG TABLET PO PRN (13:36)
--- NOTE | 2016-11-19 13:40 | PN ---
Progress Note, Physician Chief Complaint: Ms Gutierrez complains of having a headache this morning. She says she is feeling better physically and denies cp, sob, n/v. - Current Medication List Current Medications: Active Medications Acetaminophen (Tylenol -) 650 mg PO Q4H PRN PRN Reason: FEVER OR PAIN Last Admin: 11/19/16 07:59 Dose: 650 mg Amlodipine Besylate (Norvasc -) 5 mg PO DAILY PRN PRN Reason: HYPERTENSION Atenolol (Tenormin -) 50 mg PO BID [facility] [place] Last Admin: 11/19/16 10:03 Dose: 50 mg Atorvastatin Calcium (Lipitor -) 10 mg PO HS [facility] [place] Last Admin: 11/18/16 22:23 Dose: 10 mg Bupropion HCl (Wellbutrin -) 150 mg PO BID [facility] [place] Last Admin: 11/19/16 10:04 Dose: 150 mg Dexamethasone Sodium Phosphate (Decadron Injection -) 4 mg IVPB DAILY [facility] [place] Stop: 11/23/16 09:59 Diazepam (Valium -) 10 mg PO TID PRN PRN Reason: ANXIETY Last Admin: 11/19/16 13:36 Dose: 10 mg Diphenhydramine HCl (Benadryl Injection -) 25 mg IVPB DAILY@1530 [facility] [place] Stop: 11/22/16 23:59 Docusate Sodium (Colace -) 100 mg PO BID [facility] [place] Last Admin: 11/19/16 10:02 Dose: 100 mg Immune Globulin (Gamunex-C) 200 mls @ 50 mls/hr IVPB DAILY@1600 [facility] [place] Stop: 11/22/16 23:59 Lisinopril (Prinivil) 40 mg PO DAILY [facility] [place] Last Admin: 11/19/16 10:02 Dose: 40 mg Ondansetron HCl (Zofran Injection) 4 mg IVPB Q6H PRN PRN Reason: NAUSEA Oxycodone HCl (Roxicodone -) 5 mg PO TID PRN PRN Reason: PAIN Polyethylene Glycol (Miralax (For Daily Use) -) 17 gm PO DAILY [facility] [place] Last Admin: 11/19/16 10:03 Dose: 17 gm Tramadol HCl (Ultram -) 50 mg PO TID PRN PRN Reason: PAIN - Objective Vital Signs: Vital Signs Temperature 97.4 F L 11/19/16 10:11 Pulse Rate 86 11/19/16 10:11 Respiratory Rate 16 11/19/16 10:11 Blood Pressure 157/86 11/19/16 10:11 O2 Sat by Pulse Oximetry (%) 96 11/18/16 22:00 Constitutional: Yes: Well Nourished, No Distress, Calm Cardiovascular: Yes: Regular Rate and Rhythm. No: Gallop, Murmur, Rub Respiratory: Yes: Regular, CTA Bilaterally. No: Rales, Rhonchi, Wheezes Gastrointestinal: Yes: Normal Bowel Sounds, Soft. No: Distention, Tenderness Extremities: Yes: WNL Edema: No Labs: CBC, BMP 11/19/16 06:00 11/19/16 06:00 INR, PTT INR 1.05 (0.82-1.09) 11/19/16 06:00 Problem List - Problems (1) Chronic ITP (idiopathic thrombocytopenic purpura) Code(s): D69.3 - IMMUNE THROMBOCYTOPENIC PURPURA (2) Hyperlipidemia Code(s): E78.5 - HYPERLIPIDEMIA, UNSPECIFIED Qualifiers: Hyperlipidemia type: pure hypercholesterolemia Qualified Code(s): E78.00 - Pure hypercholesterolemia, unspecified; E78.0 - Pure hypercholesterolemia (3) Hypertension Code(s): I10 - ESSENTIAL (PRIMARY) HYPERTENSION Qualifiers: Hypertension type: essential hypertension Qualified Code(s): I10 - Essential (primary) hypertension (4) Anxiety Code(s): F41.9 - ANXIETY DISORDER, UNSPECIFIED Assessment/Plan (1) Chronic ITP (idiopathic thrombocytopenic purpura) Assessment/Plan: -hematology following -continue IVIg -platelet count improving Code(s): D69.3 - IMMUNE THROMBOCYTOPENIC PURPURA (2) Hyperlipidemia Assessment/Plan: -continue statin Code(s): E78.5 - HYPERLIPIDEMIA, UNSPECIFIED Qualifiers: Hyperlipidemia type: pure hypercholesterolemia (3) Hypertension Assessment/Plan: -continue lisinopril and atenolol -prn norvasc Code(s): I10 - ESSENTIAL (PRIMARY) HYPERTENSION Qualifiers: Hypertension type: essential hypertension Qualified Code(s): I10 - Essential (primary) hypertension (4) Anxiety Assessment/Plan: -continue bupropion and prn ativan Code(s): F41.9 - ANXIETY DISORDER, UNSPECIFIED
[2016-11-19] MEDS: DEXAMETHASONE SOD PHOSPHATE 4 MG/1 ML VIAL IVPB SCH (15:43)
[2016-11-19] MEDS: IMMUNE GLOB,GAM CAPRYLATE(IGG) 20 GM IVPB SCH (16:11)
[2016-11-19] MEDS ORDERED: INSULIN (NOVOLOG) ASPART 100 UNITS/ML 10ML VIAL ONE (16:29)
[2016-11-19] MEDS ORDERED: PT OWN MED DRAWER 7, Y5N ONE (21:45)
[2016-11-19] MEDS: ATORVASTATIN CA 10 MG TABLET (FP) PO SCH (22:42)
[2016-11-20 08:30] LABS: MCHC 35.1 g/dl (32.0-36.0); MEAN CELL VOLUME 88.3 fl (80-96); MEAN PLT VOLUME 10.2 fl (7.5-11.1); RDW 13.6 % (11.6-15.6); WHITE BLOOD COUNT 7.1 K/mm3 (4.0-10.0)
[2016-11-20 08:58] LABS: ALBUMIN 3.6 g/dl (3.4-5.0); ANION GAP 8 (8-16); CALCIUM 8.5 mg/dL (8.5-10.1); CO2 30 mmol/L (21-32); CREATININE 0.7 mg/dL (0.55-1.02); GLUCOSE,RANDOM 86 mg/dL (74-106)
[2016-11-20 08:59] LABS: SGOT/AST 20 U/L (15-37); SGPT/ALT 26 U/L (12-78)
[2016-11-20 09:01] LABS: ALK PHOS 68 U/L (45-117); BILIRUBIN,TOTAL 0.7 mg/dL (0.2-1.0); TOT PROT 7.7 g/dl (6.4-8.2)
[2016-11-20] MEDS ORDERED: PT OWN MED DRAWER 7, Y5N ONE ×3 (09:41→21:40)
[2016-11-20] MEDS: ATENOLOL 50 MG TABLET (FP) PO SCH ×2 (10:10→21:39)
[2016-11-20] MEDS: DOCUSATE SODIUM 100 MG CAPSULE (FP) PO SCH ×2 (10:10→21:39)
[2016-11-20 10:11] LABS: PLATELET COUNT 48 K/MM3 (134-434)
[2016-11-20] MEDS: buPROPion HCL 75 MG TABLET PO SCH ×2 (10:11→21:39)
[2016-11-20] MEDS: POLYETHYLENE GLYCOL 3350 119 GM BTL PO SCH (10:13)
[2016-11-20] MEDS: LISINOPRIL 20 MG TABLET (FP) PO SCH (10:13)
--- NOTE | 2016-11-20 11:54 | PN ---
Progress Note, Physician Chief Complaint: Ms Gutierrez says she is feeling well. No cp, sob, n/v. Headache resolved. - Current Medication List Current Medications: Active Medications Acetaminophen (Tylenol -) 650 mg PO Q4H PRN PRN Reason: FEVER OR PAIN Last Admin: 11/19/16 07:59 Dose: 650 mg Amlodipine Besylate (Norvasc -) 5 mg PO DAILY PRN PRN Reason: HYPERTENSION Atenolol (Tenormin -) 50 mg PO BID [facility] Last Admin: 11/20/16 10:10 Dose: 50 mg Atorvastatin Calcium (Lipitor -) 10 mg PO HS [facility] Last Admin: 11/19/16 22:42 Dose: 10 mg Bupropion HCl (Wellbutrin -) 150 mg PO BID [facility] Last Admin: 11/20/16 10:11 Dose: 150 mg Dexamethasone Sodium Phosphate (Decadron Injection -) 4 mg IVPB Q24H [facility] Stop: 11/22/16 15:31 Last Admin: 11/19/16 15:43 Dose: 4 mg Diazepam (Valium -) 10 mg PO TID PRN PRN Reason: ANXIETY Last Admin: 11/19/16 13:36 Dose: 10 mg Diphenhydramine HCl (Benadryl Injection -) 25 mg IVPB DAILY@1530 [facility] Stop: 11/22/16 23:59 Last Admin: 11/19/16 15:25 Dose: 25 mg Docusate Sodium (Colace -) 100 mg PO BID [facility] Last Admin: 11/20/16 10:10 Dose: 100 mg Immune Globulin (Gamunex-C) 200 mls @ 50 mls/hr IVPB DAILY@1600 [facility] Stop: 11/22/16 23:59 Last Admin: 11/19/16 16:11 Dose: 50 mls/hr Lisinopril (Prinivil) 40 mg PO DAILY [facility] Last Admin: 11/20/16 10:13 Dose: 40 mg Ondansetron HCl (Zofran Injection) 4 mg IVPB Q6H PRN PRN Reason: NAUSEA Oxycodone HCl (Roxicodone -) 5 mg PO TID PRN PRN Reason: PAIN Polyethylene Glycol (Miralax (For Daily Use) -) 17 gm PO DAILY [facility] Last Admin: 11/20/16 10:13 Dose: 17 gm Tramadol HCl (Ultram -) 50 mg PO TID PRN PRN Reason: PAIN - Objective Vital Signs: Vital Signs Temperature 97.8 F 11/20/16 06:00 Pulse Rate 75 11/20/16 06:00 Respiratory Rate 18 11/20/16 06:00 Blood Pressure 164/90 11/20/16 06:00 O2 Sat by Pulse Oximetry (%) 95 11/19/16 21:00 Constitutional: Yes: Well Nourished, No Distress, Calm Cardiovascular: Yes: Regular Rate and Rhythm. No: Gallop, Murmur, Rub Respiratory: Yes: Regular, CTA Bilaterally. No: Rales, Rhonchi, Wheezes Gastrointestinal: Yes: Normal Bowel Sounds, Soft. No: Distention, Tenderness Extremities: Yes: WNL Edema: No Labs: CBC, BMP 11/20/16 06:55 11/20/16 06:55 INR, PTT INR 1.05 (0.82-1.09) 11/19/16 06:00 Problem List - Problems (1) Chronic ITP (idiopathic thrombocytopenic purpura) Code(s): D69.3 - IMMUNE THROMBOCYTOPENIC PURPURA (2) Hyperlipidemia Code(s): E78.5 - HYPERLIPIDEMIA, UNSPECIFIED Qualifiers: Hyperlipidemia type: pure hypercholesterolemia Qualified Code(s): E78.00 - Pure hypercholesterolemia, unspecified; E78.0 - Pure hypercholesterolemia (3) Hypertension Code(s): I10 - ESSENTIAL (PRIMARY) HYPERTENSION Qualifiers: Hypertension type: essential hypertension Qualified Code(s): I10 - Essential (primary) hypertension (4) Anxiety Code(s): F41.9 - ANXIETY DISORDER, UNSPECIFIED Assessment/Plan (1) Chronic ITP (idiopathic thrombocytopenic purpura) Assessment/Plan: -hematology following -continue IVIg -platelet count improving Code(s): D69.3 - IMMUNE THROMBOCYTOPENIC PURPURA (2) Hyperlipidemia Assessment/Plan: -continue statin Code(s): E78.5 - HYPERLIPIDEMIA, UNSPECIFIED Qualifiers: Hyperlipidemia type: pure hypercholesterolemia (3) Hypertension Assessment/Plan: -continue lisinopril and atenolol -prn norvasc Code(s): I10 - ESSENTIAL (PRIMARY) HYPERTENSION Qualifiers: Hypertension type: essential hypertension Qualified Code(s): I10 - Essential (primary) hypertension (4) Anxiety Assessment/Plan: -continue bupropion and prn ativan -much improved today Code(s): F41.9 - ANXIETY DISORDER, UNSPECIFIED
--- NOTE | 2016-11-20 12:19 | PN ---
Progress Note, Physician History of Present Illness: Patient seen and examined this am. Pt tolerating IVIg She is feeling fine, She denies any bleeding. Moving her bowels - Current Medication List Current Medications: Active Medications Acetaminophen (Tylenol -) 650 mg PO Q4H PRN PRN Reason: FEVER OR PAIN Last Admin: 11/19/16 07:59 Dose: 650 mg Amlodipine Besylate (Norvasc -) 5 mg PO DAILY PRN PRN Reason: HYPERTENSION Atenolol (Tenormin -) 50 mg PO BID [facility] Last Admin: 11/20/16 10:10 Dose: 50 mg Atorvastatin Calcium (Lipitor -) 10 mg PO HS [facility] Last Admin: 11/19/16 22:42 Dose: 10 mg Bupropion HCl (Wellbutrin -) 150 mg PO BID [facility] Last Admin: 11/20/16 10:11 Dose: 150 mg Dexamethasone Sodium Phosphate (Decadron Injection -) 4 mg IVPB Q24H [facility] Stop: 11/22/16 15:31 Last Admin: 11/19/16 15:43 Dose: 4 mg Diazepam (Valium -) 10 mg PO TID PRN PRN Reason: ANXIETY Last Admin: 11/19/16 13:36 Dose: 10 mg Diphenhydramine HCl (Benadryl Injection -) 25 mg IVPB DAILY@1530 [facility] Stop: 11/22/16 23:59 Last Admin: 11/19/16 15:25 Dose: 25 mg Docusate Sodium (Colace -) 100 mg PO BID [facility] Last Admin: 11/20/16 10:10 Dose: 100 mg Immune Globulin (Gamunex-C) 200 mls @ 50 mls/hr IVPB DAILY@1600 [facility] Stop: 11/22/16 23:59 Last Admin: 11/19/16 16:11 Dose: 50 mls/hr Lisinopril (Prinivil) 40 mg PO DAILY [facility] Last Admin: 11/20/16 10:13 Dose: 40 mg Ondansetron HCl (Zofran Injection) 4 mg IVPB Q6H PRN PRN Reason: NAUSEA Oxycodone HCl (Roxicodone -) 5 mg PO TID PRN PRN Reason: PAIN Polyethylene Glycol (Miralax (For Daily Use) -) 17 gm PO DAILY [facility] Last Admin: 11/20/16 10:13 Dose: 17 gm Tramadol HCl (Ultram -) 50 mg PO TID PRN PRN Reason: PAIN - Objective Vital Signs: Vital Signs Temperature 97.8 F 11/20/16 06:00 Pulse Rate 75 11/20/16 06:00 Respiratory Rate 18 11/20/16 06:00 Blood Pressure 164/90 11/20/16 06:00 O2 Sat by Pulse Oximetry (%) 95 11/19/16 21:00 Constitutional: Yes: Well Nourished, No Distress, Calm HENT: Yes: Atraumatic, Normocephalic Neck: Yes: Supple, Trachea Midline. No: Lymphadenopathy Cardiovascular: Yes: Regular Rate and Rhythm Respiratory: Yes: Regular, CTA Bilaterally Gastrointestinal: Yes: Normal Bowel Sounds, Soft Edema: No Psychiatric: Yes: Alert, Oriented Labs: CBC, BMP 11/20/16 06:55 11/20/16 06:55 INR, PTT INR 1.05 (0.82-1.09) 11/19/16 06:00 Problem List - Problems (1) Chronic ITP (idiopathic thrombocytopenic purpura) Assessment/Plan: Patient with refractory ITP Past treatment with steroids, Gamma globulin, and most recently in 2016 with 4 infusions of Rituxan. Now admitted with isolated thrombocytopenia, consistent with a flare of ITP. No trigger identified. s/p 2 doses of IvIg (confirmed receipt of first dose of IVIG on 11/18 with RN ), three more infusions remain. improvement in platelets noted. Code(s): D69.3 - IMMUNE THROMBOCYTOPENIC PURPURA (2) Hypertension Assessment/Plan: continue with home meds fall precautions Code(s): I10 - ESSENTIAL (PRIMARY) HYPERTENSION Qualifiers: Hypertension type: essential hypertension Qualified Code(s): I10 - Essential (primary) hypertension
[2016-11-20] MEDS: DEXAMETHASONE SOD PHOSPHATE 4 MG/1 ML VIAL IVPB SCH (16:06)
[2016-11-20] MEDS: IMMUNE GLOB,GAM CAPRYLATE(IGG) 20 GM IVPB SCH (16:24)
[2016-11-20] MEDS: ATORVASTATIN CA 10 MG TABLET (FP) PO SCH (21:39)
--- NOTE | 2016-11-21 06:58 | HOSP ---
Subjective - Review of Symptoms HEENT: No: Head Aches, Visual Changes, Eye Pain Pulmonary: No: Cough Cardiovascular: No: Chest Pain, Palpitations, Light Headedness Gastrointestinal: No: Nausea, Abdominal Pain Musculoskeletal: Yes: No Symptoms Neurological: No: Weakness Physical Examination Vital Signs: Vital Signs Temperature 97.7 F 11/20/16 18:00 Pulse Rate 70 11/20/16 18:00 Respiratory Rate 18 11/20/16 21:45 Blood Pressure 122/75 11/20/16 21:45 O2 Sat by Pulse Oximetry (%) 97 11/20/16 21:00 Constitutional: Yes: Well Nourished, No Distress, Calm Eyes: Yes: Conjunctiva Clear, EOM Intact HENT: Yes: Atraumatic, Normocephalic Neck: Yes: Supple, Trachea Midline Cardiovascular: Yes: Regular Rate and Rhythm, S1, S2. No: Bradycardia, Tachycardia, Pulse Irregular, Bruit, Murmur Respiratory: Yes: Regular, CTA Bilaterally. No: Accessory Muscle Use, Cough, On Nasal O2, SOB Gastrointestinal: Yes: Normal Bowel Sounds, Soft Neurological: Yes: Alert, Oriented. No: Facial Droop Psychiatric: Yes: Alert, Oriented Labs: CBC, BMP 11/20/16 06:55 11/20/16 06:55 Hospitalist Encounter Assessment: 86 yr old woman with HTN, ITP, HLD, CAD, hx of TIA admitted for thrombocytopenia. called by John for elevated BP, systolic 190/111 automatic cuff. Call placed to Dr. Jiménez, she was awaiting response. 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 she takes atenolol 50mg as soon as she wakes up, since being the hospital it is being given later than she normally takes. Pt denies headache, lightheadedness, dizziness, changes in her vision, chest/ abdominal pain, palpitations, sob, weakness. Alert, oriented x3. on manual cuff: left arm supine 190/80, right arm supine 190/85. patient is resting comfortably in bed. Atenolol 50mg ordered one dose now, held the usual 10AM dose. informed Jackeline wong of medication change. Primary team to follow in the morning. Visit type - Emergency Visit Emergency Visit: No - New Patient This patient is new to me today: Yes Date on this admission: 11/21/16 - Critical Care Critical Care patient: No
[2016-11-21 07:23] LABS: MCH 30.7 pg (25.7-33.7); MEAN CELL VOLUME 87.7 fl (80-96); MEAN PLT VOLUME 9.5 fl (7.5-11.1); PLATELET COUNT 58 K/MM3 (134-434); RDW 13.9 % (11.6-15.6)
[2016-11-21] MEDS ORDERED: ATENOLOL 50 MG TABLET (FP) PO ONE (07:45)
[2016-11-21] MEDS: diazePAM 5 MG TABLET PO PRN ×3 (07:53→23:04)
[2016-11-21 08:30] LABS: ALBUMIN 3.3 g/dl (3.4-5.0); ALK PHOS 69 U/L (45-117); ANION GAP 7 (8-16); BILIRUBIN,TOTAL 0.5 mg/dL (0.2-1.0); CALCIUM 8.8 mg/dL (8.5-10.1); CO2 29 mmol/L (21-32); CREATININE 0.7 mg/dL (0.55-1.02); GLUCOSE,RANDOM 79 mg/dL (74-106); SGOT/AST 18 U/L (15-37); SGPT/ALT 25 U/L (12-78); TOT PROT 7.7 g/dl (6.4-8.2)
[2016-11-21] MEDS ORDERED: PT OWN MED DRAWER 7, Y5N ONE ×2 (10:26→23:02)
[2016-11-21] MEDS: DOCUSATE SODIUM 100 MG CAPSULE (FP) PO SCH ×2 (10:32→23:04)
[2016-11-21] MEDS: buPROPion HCL 75 MG TABLET PO SCH ×2 (10:32→23:04)
[2016-11-21] MEDS: LISINOPRIL 20 MG TABLET (FP) PO SCH (10:32)
[2016-11-21] MEDS: POLYETHYLENE GLYCOL 3350 119 GM BTL PO SCH (10:33)
--- NOTE | 2016-11-21 11:54 | PN ---
Progress Note, Physician Chief Complaint: Ms Gutierrez says she is feeling well. No cp, sob, n/v. Headache resolved. Had episode of hypertension this am. - Current Medication List Current Medications: Active Medications Acetaminophen (Tylenol -) 650 mg PO Q4H PRN PRN Reason: FEVER OR PAIN Last Admin: 11/19/16 07:59 Dose: 650 mg Amlodipine Besylate (Norvasc -) 5 mg PO DAILY PRN PRN Reason: HYPERTENSION Atenolol (Tenormin -) 50 mg PO BID [facility] Last Admin: 11/20/16 21:39 Dose: 50 mg Atorvastatin Calcium (Lipitor -) 10 mg PO HS [facility] Last Admin: 11/20/16 21:39 Dose: 10 mg Bupropion HCl (Wellbutrin -) 150 mg PO BID [facility] Last Admin: 11/21/16 10:32 Dose: 150 mg Dexamethasone Sodium Phosphate (Decadron Injection -) 4 mg IVPB Q24H [facility] Stop: 11/22/16 15:31 Last Admin: 11/20/16 16:06 Dose: 4 mg Diazepam (Valium -) 10 mg PO TID PRN PRN Reason: ANXIETY Last Admin: 11/21/16 07:53 Dose: 10 mg Diphenhydramine HCl (Benadryl Injection -) 25 mg IVPB DAILY@1530 [facility] Stop: 11/22/16 23:59 Last Admin: 11/20/16 16:06 Dose: 25 mg Docusate Sodium (Colace -) 100 mg PO BID [facility] Last Admin: 11/21/16 10:32 Dose: 100 mg Immune Globulin (Gamunex-C) 200 mls @ 50 mls/hr IVPB DAILY@1600 [facility] Stop: 11/22/16 23:59 Last Admin: 11/20/16 16:24 Dose: 50 mls/hr Lisinopril (Prinivil) 40 mg PO DAILY [facility] Last Admin: 11/21/16 10:32 Dose: 40 mg Ondansetron HCl (Zofran Injection) 4 mg IVPB Q6H PRN PRN Reason: NAUSEA Oxycodone HCl (Roxicodone -) 5 mg PO TID PRN PRN Reason: PAIN Polyethylene Glycol (Miralax (For Daily Use) -) 17 gm PO DAILY [facility] Last Admin: 11/21/16 10:33 Dose: 17 gm Tramadol HCl (Ultram -) 50 mg PO TID PRN PRN Reason: PAIN - Objective Vital Signs: Vital Signs Temperature 98.1 F 11/21/16 10:30 Pulse Rate 73 11/21/16 10:30 Respiratory Rate 20 11/21/16 10:30 Blood Pressure 157/81 11/21/16 10:30 O2 Sat by Pulse Oximetry (%) 97 11/20/16 21:00 Constitutional: Yes: Well Nourished, No Distress, Calm Cardiovascular: Yes: Regular Rate and Rhythm. No: Gallop, Murmur, Rub Respiratory: Yes: Regular, CTA Bilaterally. No: Rales, Rhonchi, Wheezes Gastrointestinal: Yes: Normal Bowel Sounds, Soft. No: Distention, Tenderness Extremities: Yes: WNL Edema: No Labs: CBC, BMP 11/21/16 06:45 11/21/16 06:45 INR, PTT INR 1.05 (0.82-1.09) 11/19/16 06:00 Problem List - Problems (1) Chronic ITP (idiopathic thrombocytopenic purpura) Code(s): D69.3 - IMMUNE THROMBOCYTOPENIC PURPURA (2) Hyperlipidemia Code(s): E78.5 - HYPERLIPIDEMIA, UNSPECIFIED Qualifiers: Hyperlipidemia type: pure hypercholesterolemia Qualified Code(s): E78.00 - Pure hypercholesterolemia, unspecified; E78.0 - Pure hypercholesterolemia (3) Hypertension Code(s): I10 - ESSENTIAL (PRIMARY) HYPERTENSION Qualifiers: Hypertension type: essential hypertension Qualified Code(s): I10 - Essential (primary) hypertension (4) Anxiety Code(s): F41.9 - ANXIETY DISORDER, UNSPECIFIED Assessment/Plan (1) Chronic ITP (idiopathic thrombocytopenic purpura) Assessment/Plan: -hematology following -continue IVIg -platelet count improving Code(s): D69.3 - IMMUNE THROMBOCYTOPENIC PURPURA (2) Hyperlipidemia Assessment/Plan: -continue statin Code(s): E78.5 - HYPERLIPIDEMIA, UNSPECIFIED Qualifiers: Hyperlipidemia type: pure hypercholesterolemia (3) Hypertension Assessment/Plan: -continue lisinopril and atenolol -prn norvasc -may need to further adjust, monitor Code(s): I10 - ESSENTIAL (PRIMARY) HYPERTENSION Qualifiers: Hypertension type: essential hypertension Qualified Code(s): I10 - Essential (primary) hypertension (4) Anxiety Assessment/Plan: -continue bupropion and prn ativan Code(s): F41.9 - ANXIETY DISORDER, UNSPECIFIED
--- NOTE | 2016-11-21 13:14 | PN ---
Progress Note, Physician History of Present Illness: Patient seen and examined this am. Pt tolerating IVIg she had an episode of high SBP this am , she was given an atenelol. She has no sx though.She feels well. She mentioned to me that it happens on and off with the blood pressure. - Current Medication List Current Medications: Active Medications Acetaminophen (Tylenol -) 650 mg PO Q4H PRN PRN Reason: FEVER OR PAIN Last Admin: 11/19/16 07:59 Dose: 650 mg Amlodipine Besylate (Norvasc -) 5 mg PO DAILY PRN PRN Reason: HYPERTENSION Atenolol (Tenormin -) 50 mg PO BID [facility] Last Admin: 11/20/16 21:39 Dose: 50 mg Atorvastatin Calcium (Lipitor -) 10 mg PO HS [facility] Last Admin: 11/20/16 21:39 Dose: 10 mg Bupropion HCl (Wellbutrin -) 150 mg PO BID [facility] Last Admin: 11/21/16 10:32 Dose: 150 mg Dexamethasone Sodium Phosphate (Decadron Injection -) 4 mg IVPB Q24H [facility] Stop: 11/22/16 15:31 Last Admin: 11/20/16 16:06 Dose: 4 mg Diazepam (Valium -) 10 mg PO TID PRN PRN Reason: ANXIETY Last Admin: 11/21/16 07:53 Dose: 10 mg Diphenhydramine HCl (Benadryl Injection -) 25 mg IVPB DAILY@1530 [facility] Stop: 11/22/16 23:59 Last Admin: 11/20/16 16:06 Dose: 25 mg Docusate Sodium (Colace -) 100 mg PO BID [facility] Last Admin: 11/21/16 10:32 Dose: 100 mg Immune Globulin (Gamunex-C) 200 mls @ 50 mls/hr IVPB DAILY@1600 [facility] Stop: 11/22/16 23:59 Last Admin: 11/20/16 16:24 Dose: 50 mls/hr Lisinopril (Prinivil) 40 mg PO DAILY [facility] Last Admin: 11/21/16 10:32 Dose: 40 mg Ondansetron HCl (Zofran Injection) 4 mg IVPB Q6H PRN PRN Reason: NAUSEA Oxycodone HCl (Roxicodone -) 5 mg PO TID PRN PRN Reason: PAIN Polyethylene Glycol (Miralax (For Daily Use) -) 17 gm PO DAILY [facility] Last Admin: 11/21/16 10:33 Dose: 17 gm Tramadol HCl (Ultram -) 50 mg PO TID PRN PRN Reason: PAIN - Objective Vital Signs: Vital Signs Temperature 98.1 F 11/21/16 10:30 Pulse Rate 73 11/21/16 10:30 Respiratory Rate 20 11/21/16 10:30 Blood Pressure 157/81 11/21/16 10:30 O2 Sat by Pulse Oximetry (%) 97 11/20/16 21:00 Constitutional: Yes: Well Nourished, No Distress, Calm Eyes: Yes: Conjunctiva Clear, EOM Intact HENT: Yes: Atraumatic, Normocephalic Neck: Yes: Supple. No: Lymphadenopathy Cardiovascular: Yes: Regular Rate and Rhythm Respiratory: Yes: Regular, CTA Bilaterally Gastrointestinal: Yes: Normal Bowel Sounds Edema: No Labs: CBC, BMP 11/21/16 06:45 11/21/16 06:45 INR, PTT INR 1.05 (0.82-1.09) 11/19/16 06:00 Problem List - Problems (1) Chronic ITP (idiopathic thrombocytopenic purpura) Assessment/Plan: Patient with refractory ITP. Past treatment with steroids, Gamma globulin, and most recently in 2016 with 4 infusions of Rituxan. Now admitted with isolated thrombocytopenia, consistent with a flare of ITP. No trigger identified. s/p 3 doses of IvIg (confirmed receipt of first dose of IVIG on 11/18 with RN ), two more infusions remain. slow improvement in platelets noted. daily CBC Code(s): D69.3 - IMMUNE THROMBOCYTOPENIC PURPURA (2) Hypertension Assessment/Plan: continue with home meds fall precautions Code(s): I10 - ESSENTIAL (PRIMARY) HYPERTENSION Qualifiers: Hypertension type: essential hypertension Qualified Code(s): I10 - Essential (primary) hypertension
[2016-11-21] MEDS: DEXAMETHASONE SOD PHOSPHATE 4 MG/1 ML VIAL IVPB SCH (17:26)
[2016-11-21] MEDS: IMMUNE GLOB,GAM CAPRYLATE(IGG) 20 GM IVPB SCH (18:12)
[2016-11-21] MEDS: ATENOLOL 50 MG TABLET (FP) PO SCH (23:04)
[2016-11-21] MEDS: ATORVASTATIN CA 10 MG TABLET (FP) PO SCH (23:04)
[2016-11-22 07:48] LABS: BASOPHIL 0.2 % (0-2.0); EOSINOPHIL 0.2 % (0-4.5); MCH 30.5 pg (25.7-33.7); MCHC 34.9 g/dl (32.0-36.0); MEAN CELL VOLUME 87.5 fl (80-96); MEAN PLT VOLUME 9.4 fl (7.5-11.1); NEUTROPHILS 76.8 % (42.8-82.8); PLATELET COUNT 82 K/MM3 (134-434); RDW 13.6 % (11.6-15.6); WHITE BLOOD COUNT 4.3 K/mm3 (4.0-10.0)
[2016-11-22 08:38] LABS: ANION GAP 10 (8-16); CALCIUM 8.6 mg/dL (8.5-10.1); CO2 27 mmol/L (21-32); CREATININE 0.7 mg/dL (0.55-1.02); GLUCOSE,RANDOM 95 mg/dL (74-106); MAGNESIUM 2.3 mg/dL (1.8-2.4)
[2016-11-22] MEDS: DOCUSATE SODIUM 100 MG CAPSULE (FP) PO SCH ×2 (09:09→23:36)
[2016-11-22] MEDS: POLYETHYLENE GLYCOL 3350 119 GM BTL PO SCH (09:09)
[2016-11-22] MEDS: LISINOPRIL 20 MG TABLET (FP) PO SCH (09:09)
[2016-11-22] MEDS: diazePAM 5 MG TABLET PO PRN (09:09)
[2016-11-22] MEDS: ATENOLOL 50 MG TABLET (FP) PO SCH ×2 (09:09→23:37)
[2016-11-22] MEDS: buPROPion HCL 75 MG TABLET PO SCH ×2 (09:10→23:36)
--- NOTE | 2016-11-22 12:30 | PN ---
Progress Note, Physician Chief Complaint: Ms Gutierrez says she did not get enough sleep last night secondary to noise. Otherwise she is doing well and is without complaint. No cp, sob, n/v. - Current Medication List Current Medications: Active Medications Acetaminophen (Tylenol -) 650 mg PO Q4H PRN PRN Reason: FEVER OR PAIN Last Admin: 11/19/16 07:59 Dose: 650 mg Amlodipine Besylate (Norvasc -) 5 mg PO DAILY PRN PRN Reason: HYPERTENSION Last Admin: 11/21/16 17:26 Dose: 5 mg Atenolol (Tenormin -) 50 mg PO BID [facility] Last Admin: 11/22/16 09:09 Dose: 50 mg Atorvastatin Calcium (Lipitor -) 10 mg PO HS [facility] Last Admin: 11/21/16 23:04 Dose: 10 mg Bupropion HCl (Wellbutrin -) 150 mg PO BID [facility] Last Admin: 11/22/16 09:10 Dose: 150 mg Dexamethasone Sodium Phosphate (Decadron Injection -) 4 mg IVPB Q24H [facility] Stop: 11/22/16 15:31 Last Admin: 11/21/16 17:26 Dose: 4 mg Diazepam (Valium -) 10 mg PO TID PRN PRN Reason: ANXIETY Last Admin: 11/22/16 09:09 Dose: 10 mg Diphenhydramine HCl (Benadryl Injection -) 25 mg IVPB DAILY@1530 [facility] Stop: 11/22/16 23:59 Last Admin: 11/21/16 16:56 Dose: 25 mg Docusate Sodium (Colace -) 100 mg PO BID [facility] Last Admin: 11/22/16 09:09 Dose: 100 mg Immune Globulin (Gamunex-C) 200 mls @ 50 mls/hr IVPB DAILY@1600 [facility] Stop: 11/22/16 23:59 Last Admin: 11/21/16 18:12 Dose: 50 mls/hr Lisinopril (Prinivil) 40 mg PO DAILY [facility] Last Admin: 11/22/16 09:09 Dose: 40 mg Ondansetron HCl (Zofran Injection) 4 mg IVPB Q6H PRN PRN Reason: NAUSEA Oxycodone HCl (Roxicodone -) 5 mg PO TID PRN PRN Reason: PAIN Polyethylene Glycol (Miralax (For Daily Use) -) 17 gm PO DAILY [facility] Last Admin: 11/22/16 09:09 Dose: 17 gm Tramadol HCl (Ultram -) 50 mg PO TID PRN PRN Reason: PAIN Last Admin: 11/21/16 16:08 Dose: 50 mg - Objective Vital Signs: Vital Signs Temperature 97.6 F 11/22/16 09:00 Pulse Rate 80 11/22/16 11:59 Respiratory Rate 20 11/22/16 11:59 Blood Pressure 152/83 11/22/16 11:59 O2 Sat by Pulse Oximetry (%) 97 11/21/16 21:00 Constitutional: Yes: Well Nourished, No Distress, Calm Cardiovascular: Yes: Regular Rate and Rhythm. No: Gallop, Murmur, Rub Respiratory: Yes: Regular, CTA Bilaterally. No: Rales, Rhonchi, Wheezes Gastrointestinal: Yes: Normal Bowel Sounds, Soft. No: Distention, Tenderness Extremities: Yes: WNL Edema: No Labs: CBC, BMP 11/22/16 06:30 11/22/16 06:30 INR, PTT INR 1.05 (0.82-1.09) 11/19/16 06:00 Problem List - Problems (1) Chronic ITP (idiopathic thrombocytopenic purpura) Code(s): D69.3 - IMMUNE THROMBOCYTOPENIC PURPURA (2) Hyperlipidemia Code(s): E78.5 - HYPERLIPIDEMIA, UNSPECIFIED Qualifiers: Hyperlipidemia type: pure hypercholesterolemia Qualified Code(s): E78.00 - Pure hypercholesterolemia, unspecified; E78.0 - Pure hypercholesterolemia (3) Hypertension Code(s): I10 - ESSENTIAL (PRIMARY) HYPERTENSION Qualifiers: Hypertension type: essential hypertension Qualified Code(s): I10 - Essential (primary) hypertension (4) Anxiety Code(s): F41.9 - ANXIETY DISORDER, UNSPECIFIED Assessment/Plan (1) Chronic ITP (idiopathic thrombocytopenic purpura) Assessment/Plan: -hematology following -continue IVIg -platelet count improving, today is 82 Code(s): D69.3 - IMMUNE THROMBOCYTOPENIC PURPURA (2) Hyperlipidemia Assessment/Plan: -continue statin Code(s): E78.5 - HYPERLIPIDEMIA, UNSPECIFIED Qualifiers: Hyperlipidemia type: pure hypercholesterolemia (3) Hypertension Assessment/Plan: -continue lisinopril and atenolol -prn norvasc -may need to further adjust, monitor Code(s): I10 - ESSENTIAL (PRIMARY) HYPERTENSION Qualifiers: Hypertension type: essential hypertension Qualified Code(s): I10 - Essential (primary) hypertension (4) Anxiety Assessment/Plan: -continue bupropion and prn ativan Code(s): F41.9 - ANXIETY DISORDER, UNSPECIFIED
[2016-11-22] MEDS ORDERED: GLYCERIN 1 RECTAL SUPPOSITORY, ADULT RC ONE (13:45)
[2016-11-22] MEDS: DEXAMETHASONE SOD PHOSPHATE 4 MG/1 ML VIAL IVPB SCH (16:20)
[2016-11-22] MEDS: IMMUNE GLOB,GAM CAPRYLATE(IGG) 20 GM IVPB SCH (17:02)
--- NOTE | 2016-11-22 20:41 | PN ---
Progress Note (short form) - Note Progress Note: Patient seen and examined Day # 4 of Gamma globulin Tolerating well to date Platelet trend is upward. Kidney function has been stable No evidence of fluid overload Last Vital Signs Temp Pulse Resp BP Pulse Ox 98.1 F 90 20 132/72 96 11/22/16 19:00 11/22/16 19:00 11/22/16 19:00 11/22/16 19:00 11/22/16 09:00 HEENT: JOSÉ, EOM Intact Oropharynx: No thrush, No mucositis Neck: Supple Cor: RSR, No murmurs, No gallops Lungs: Clear to P&A Abd: Soft, Normal bowel sounds, No organomegaly Ext:No significant edema Skin: No rashes, Integument intact CBC, BMP 11/22/16 06:30 11/22/16 06:30 Current Medications Generic Name Dose Route Start Last Admin Trade Name Freq PRN Reason Stop Dose Admin Acetaminophen 650 mg 11/18/16 13:53 11/19/16 07:59 Tylenol - PO 650 mg Q4H PRN Administration FEVER OR PAIN Amlodipine Besylate 5 mg 11/19/16 13:24 11/21/16 17:26 Norvasc - PO 5 mg DAILY PRN Administration HYPERTENSION Atenolol 50 mg 11/18/16 22:00 11/22/16 09:09 Tenormin - PO 50 mg BID [facility] Administration Atorvastatin Calcium 10 mg 11/18/16 22:00 11/21/16 23:04 Lipitor - PO 10 mg HS [facility] Administration Bupropion HCl 150 mg 11/18/16 22:00 11/22/16 09:10 Wellbutrin - PO 150 mg BID [facility] Administration Diazepam 10 mg 11/18/16 13:51 11/22/16 09:09 Valium - PO 10 mg TID PRN Administration ANXIETY Diphenhydramine HCl 25 mg 11/19/16 15:30 11/22/16 15:36 Benadryl Injection - IVPB 11/22/16 23:59 25 mg DAILY@1530 [facility] Administration Docusate Sodium 100 mg 11/18/16 22:00 11/22/16 09:09 Colace - PO 100 mg BID [facility] Administration Immune Globulin 200 mls @ 50 mls/hr 11/19/16 16:00 11/22/16 17:02 Gamunex-C IVPB 11/22/16 23:59 50 mls/hr DAILY@1600 [facility] Administration Lisinopril 40 mg 11/18/16 22:00 11/22/16 09:09 Prinivil PO 40 mg DAILY [facility] Administration Ondansetron HCl 4 mg 11/18/16 13:53 Zofran Injection IVPB Q6H PRN [facility] Oxycodone HCl 5 mg 11/19/16 13:24 Roxicodone - PO TID PRN PAIN Polyethylene Glycol 17 gm 11/19/16 10:00 11/22/16 09:09 Miralax (For Daily Use) - PO 17 gm DAILY [facility] Administration Tramadol HCl 50 mg 11/18/16 13:51 11/21/16 16:08 Ultram - PO 50 mg TID PRN Administration PAIN Impression: ITP - trend of platelets is upward -to complete 5 day course and to monitor. Continue to monitor CBC and kidney function on Gamma Globulin.
[2016-11-22] MEDS ORDERED: PT OWN MED DRAWER 7, Y5N ONE (23:15)
[2016-11-22] MEDS: ATORVASTATIN CA 10 MG TABLET (FP) PO SCH (23:36)
[2016-11-23 08:02] LABS: BASOPHIL 0.5 % (0-2.0); EOSINOPHIL 0.8 % (0-4.5); MCH 30.9 pg (25.7-33.7); MCHC 35.6 g/dl (32.0-36.0); MEAN CELL VOLUME 86.9 fl (80-96); MEAN PLT VOLUME 9.3 fl (7.5-11.1); NEUTROPHILS 73.9 % (42.8-82.8); PLATELET COUNT 105 K/MM3 (134-434); RDW 13.8 % (11.6-15.6); WHITE BLOOD COUNT 4.7 K/mm3 (4.0-10.0)
[2016-11-23 08:08] LABS: ANION GAP 8 (8-16); CALCIUM 8.5 mg/dL (8.5-10.1); CO2 29 mmol/L (21-32); CREATININE 0.7 mg/dL (0.55-1.02); GLUCOSE,RANDOM 89 mg/dL (74-106); MAGNESIUM 2.1 mg/dL (1.8-2.4); PHOSPHOROUS 3.5 mg/dL (2.5-4.9)
[2016-11-23] MEDS ORDERED: PT OWN MED DRAWER 7, Y5N ONE ×2 (09:56→10:00)
[2016-11-23] MEDS: buPROPion HCL 75 MG TABLET PO SCH (09:59)
[2016-11-23] MEDS: ATENOLOL 50 MG TABLET (FP) PO SCH (10:00)
[2016-11-23] MEDS: LISINOPRIL 20 MG TABLET (FP) PO SCH (10:00)
[2016-11-23] MEDS: DOCUSATE SODIUM 100 MG CAPSULE (FP) PO SCH (10:04)
[2016-11-23] MEDS: POLYETHYLENE GLYCOL 3350 119 GM BTL PO SCH (10:04)
[2016-11-23 14:53] VITALS: BP 146/86; PULSE 84; TEMP 98.4
--- NOTE | 2016-11-23 15:20 | DS ---
Physical Examination Vital Signs: Vital Signs Temperature 98.4 F 11/23/16 14:50 Pulse Rate 84 11/23/16 14:50 Respiratory Rate 20 11/23/16 14:50 Blood Pressure 146/86 11/23/16 14:50 O2 Sat by Pulse Oximetry (%) 96 11/23/16 10:00 Labs: CBC, BMP 11/23/16 05:35 11/23/16 05:35 Discharge Summary Reason For Visit: THROMBOCYTOPENIA Current Active Problems Anxiety (Acute) Thrombocytopenia (Acute) Condition: Stable - Instructions Diet, Activity, Other Instructions: resume previous diet and activity Referrals: Epifanio Mooney MD [Primary Care Provider] - Kyree Pritchett MD [Staff Physician] - Disposition: HOME - Home Medications Comprehensive Discharge Medication List: Ambulatory Orders Atenolol [Tenormin -] 50 mg PO BID 01/07/15 Bupropion HCl [Zyban] 150 mg PO BID 01/07/15 Diazepam 10 mg PO TID PRN 01/07/15 Lisinopril [Prinivil -] 40 mg PO BID 01/07/15 Lovastatin 40 mg PO DAILY 01/07/15 Tramadol HCl [Ultram -] 50 mg PO TID PRN 02/14/15 Amlodipine Besylate [Norvasc -] 5 mg PO DAILY PRN #0 tablet 11/23/16 Docusate Sodium [Colace -] 100 mg PO BID cap 11/23/16
--- NOTE | 2016-11-23 17:05 | PN ---
Progress Note (short form) - Note Progress Note: Patient seen and examned Completed course of Gamma globulin. Platelets-105K Last Vital Signs Temp Pulse Resp BP Pulse Ox 98.4 F 84 20 146/86 96 11/23/16 14:50 11/23/16 14:50 11/23/16 14:50 11/23/16 14:50 11/23/16 10:00 HEENT: JOSÉ, EOM Intact Cor: RSR, No murmurs, No gallops Lungs: Clear to P&A Abd: Soft, Normal bowel sounds, No organomegaly Ext:No significant edema Skin: No rashes, Integument intact CBC, BMP 11/23/16 05:35 11/23/16 05:35 Current Medications Generic Name Dose Route Start Last Admin Trade Name Freq PRN Reason Stop Dose Admin Acetaminophen 650 mg 11/18/16 13:53 11/19/16 07:59 Tylenol - PO 650 mg Q4H PRN Administration FEVER OR PAIN Amlodipine Besylate 5 mg 11/19/16 13:24 11/21/16 17:26 Norvasc - PO 5 mg DAILY PRN Administration HYPERTENSION Atenolol 50 mg 11/18/16 22:00 11/23/16 10:00 Tenormin - PO 50 mg BID MARBELLA Administration Atorvastatin Calcium 10 mg 11/18/16 22:00 11/22/16 23:36 Lipitor - PO 10 mg HS MARBELLA Administration Bupropion HCl 150 mg 11/18/16 22:00 11/23/16 09:59 Wellbutrin - PO 150 mg BID MARBELLA Administration Diazepam 10 mg 11/18/16 13:51 11/22/16 09:09 Valium - PO 10 mg TID PRN Administration ANXIETY Docusate Sodium 100 mg 11/18/16 22:00 11/23/16 10:04 Colace - PO 100 mg BID MARBELLA Administration Lisinopril 40 mg 11/18/16 22:00 11/23/16 10:00 Prinivil PO 40 mg DAILY MARBELLA Administration Ondansetron HCl 4 mg 11/18/16 13:53 Zofran Injection IVPB Q6H PRN NAUSEA Oxycodone HCl 5 mg 11/19/16 13:24 Roxicodone - PO TID PRN PAIN Polyethylene Glycol 17 gm 11/19/16 10:00 11/23/16 10:04 Miralax (For Daily Use) - PO 17 gm DAILY MARBELLA Administration Tramadol HCl 50 mg 11/18/16 13:51 11/21/16 16:08 Ultram - PO 50 mg TID PRN Administration PAIN Impression: ITP S/P gamma globulin For out patient follow up
== END 2016-11-23 18:17 | disposition home or self-care (01) | DRG 813 ==
LOC: JER 09:49 → JERBED 12:34 → UNDOADMIN 13:10 → JERBED 13:10 → J5S 15:19
PROVIDERS: ADMIT Internal Medicine; ATTEND Internal Medicine
PROC: 30233S1 Transfusion of Nonautologous Globulin into Peripheral Vein, Percutaneous Approach (ICD-10-PCS; principal; 2016-11-18)
DX: D69.3 Immune thrombocytopenic purpura (principal); I10 Essential (primary) hypertension; I25.10 Atherosclerotic heart disease of native coronary artery without angina pectoris; E78.5 Hyperlipidemia, unspecified; F41.9 Anxiety disorder, unspecified
CPT/HCPCS: 36415; 80048; 80053; 83615; 83735; 84100; 85025; 85027; 85044; 85610; 85730; 86850; 86900; 86901; 94010; 97116-GP; 97161-GP; 99282-25; J1459; J8540

== ENCOUNTER 2017-01-14 10:43 | Day surgery (SDC) | payer BC ==
[2017-01-14 11:20] VITALS: TEMP 98.3
[2017-01-14 11:41] LABS: BASOPHIL 0.2 % (0-2.0); EOSINOPHIL 1.2 % (0-4.5); MCHC 34.9 g/dl (32.0-36.0); MEAN CELL VOLUME 88.8 fl (80-96); MEAN PLT VOLUME 9.2 fl (7.5-11.1); NEUTROPHILS 75.3 % (42.8-82.8); PLATELET COUNT 76 K/MM3 (134-434); RDW 13.9 % (11.6-15.6); WHITE BLOOD COUNT 6.8 K/mm3 (4.0-10.0)
[2017-01-14 11:58] LABS: ALBUMIN 3.5 g/dl (3.4-5.0); ANION GAP 10 (8-16); BILIRUBIN,TOTAL 0.7 mg/dL (0.2-1.0); CALCIUM 8.3 mg/dL (8.5-10.1); CO2 29 mmol/L (21-32); CREATININE 0.7 mg/dL (0.55-1.02); GLUCOSE,RANDOM 106 mg/dL (74-106); MAGNESIUM 2.3 mg/dL (1.8-2.4); SGOT/AST 21 U/L (15-37); SGPT/ALT 29 U/L (12-78); TOT PROT 6.1 g/dl (6.4-8.2)
[2017-01-14 11:59] LABS: ALK PHOS 77 U/L (45-117)
--- NOTE | 2017-01-14 13:31 | PN ---
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 Seen in office 01/13 - platelets 61K and had vaginal bleeding and admitted for transfusion of platelets. Last Vital Signs Temp Pulse Resp BP Pulse Ox 98.3 F 77 18 149/75 01/14/17 11:19 01/14/17 11:19 01/14/17 11:19 01/14/17 11:19 HEENT: JOSÉ, EOM Intact Oropharynx: No thrush, No mucositis Neck: Supple Nodes: Without adenopathy Cor: RSR, No murmurs, No gallops Lungs: Clear to P&A Abd: Soft, Normal bowel sounds, No organomegaly Ext:No significant edema Skin: No rashes, Integument intact CBC, BMP 01/14/17 11:20 01/14/17 11:20 Impression: Refractory ITP Vaginal bleeding Plan: transfuse one unit of platelets.
[2017-01-14 15:49] VITALS: BP 153/80; PULSE 74
[2017-01-14 15:52] LABS: MCH 30.9 pg (25.7-33.7); MCHC 35.3 g/dl (32.0-36.0); MEAN CELL VOLUME 87.4 fl (80-96); MEAN PLT VOLUME 9.5 fl (7.5-11.1); PLATELET COUNT 75 K/MM3 (134-434); WHITE BLOOD COUNT 10.1 K/mm3 (4.0-10.0)
== END 2017-01-14 15:51 | disposition home or self-care (01) ==
LOC: JBLOOD 10:43 → J7W 10:55 → JBLOOD 15:51
PROVIDERS: ATTEND Internal Medicine Hematology & Oncology
PROC: 30253R1 (ICD-10-PCS; principal; 2017-01-14)
DX: D69.6 Thrombocytopenia, unspecified (principal); N93.9 Abnormal uterine and vaginal bleeding, unspecified
CPT/HCPCS: 36415; 36430; 80053; 83735; 85025; 85027; 85610; 85730; 86850; 86900; 86901; P9034; P9038

== ENCOUNTER 2017-03-30 08:32 | Emergency (ER) | payer BC ==
[2017-03-30 08:38] VITALS: TEMP 97.5; BMI 21.9
--- NOTE | 2017-03-30 09:01 | PDOC ---
History of Present Illness - General Chief Complaint: Lightheaded Stated Complaint: FATIGUE Time Seen by Provider: 03/30/17 08:47 History Source: Patient - History of Present Illness Timing/Duration: other Past History - Past Medical History Allergies/Adverse Reactions: Allergies Allergy/AdvReac Type Severity Reaction Status Date / Time penicillin G Allergy Unknown Verified 03/30/17 08:38 carvedilol [From Coreg] Allergy Verified 03/30/17 08:38 ciprofloxacin [From Cipro] Allergy Verified 03/30/17 08:38 ciprofloxacin HCl Allergy Verified 03/30/17 08:38 [From Cipro] metoprolol succinate Allergy Verified 03/30/17 08:38 [From Toprol XL] clindamycin AdvReac Unknown DIARRHEA Verified 03/30/17 08:38 metoprolol AdvReac Unknown Verified 03/30/17 08:38 valsartan [From Diovan] AdvReac Unknown Verified 03/30/17 08:38 ESTRACE CREAM Allergy Uncoded 03/30/17 08:38 BENICAR AdvReac Uncoded 03/30/17 08:38 Home Medications: Ambulatory Orders Amlodipine Besylate [Norvasc -] 5 mg PO DAILY 03/30/17 Atenolol [Tenormin] 50 mg PO BID 03/30/17 Bupropion HCl [Bupropion Xl] 150 mg PO BID 03/30/17 Dexamethasone 40 mg PO MONTHLY 03/30/17 Diazepam 10 mg PO TID 03/30/17 Hydrocodone/Acetaminophen [[place] 5-325 Tablet] 1 each PO DAILY 03/30/17 Lisinopril [Zestril] 40 mg PO BID 03/30/17 Lovastatin [Altoprev] 40 mg PO DAILY 03/30/17 Tramadol HCl 50 mg PO TID 03/30/17 Anemia: (ITP) Asthma: No Cancer: No Cardiac Disorders: Yes (valve leakage, blocked artery) CVA: (TIA) COPD: No CHF: No Dementia: No Diabetes: No GI Disorders: Yes (ibs) Disorders: Yes (Kidney cyst) HTN: Yes Hypercholesterolemia: Yes Liver Disease: Yes (liver cyst) Psychiatric Problems: Yes (ANXIETY.) Seizures: No Thyroid Disease: No - Surgical History 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) Appendectomy: Yes Cardiac Surgery: Yes (Varicose Veins) Cholecystectomy: No Lung Surgery: No Neurologic Surgery: No Orthopedic Surgery: No - Immunization History Immunization Up to Date: Yes - Suicide/Smoking/Psychosocial Hx Smoking Status: No Smoking History: Never smoked Have you smoked in the past 12 months: No Number of Cigarettes Smoked Daily: 0 Hx Alcohol Use: No Drug/Substance Use Hx: No Substance Use Type: None Hx Substance Use Treatment: No Review of Systems - Review of Systems Constitutional: No: Chills, Fever Respiratory: Yes: Shortness of Breath Cardiac (ROS): Yes: Lightheadedness. No: Chest Pain, Palpitations, Syncope ABD/GI: No: Nausea, Vomiting Neurological: No: Headache *Physical Exam - Vital Signs Last Vital Signs Temp Pulse Resp BP Pulse Ox 97.5 F L 78 20 166/88 98 03/30/17 08:34 03/30/17 08:34 03/30/17 08:34 03/30/17 08:34 03/30/17 08:34 - Physical Exam General Appearance: Yes: Appropriately Dressed. No: Apparent Distress HEENT: positive: Normal Voice Neck: positive: Supple Respiratory/Chest: positive: Lungs Clear, Normal Breath Sounds. negative: Respiratory Distress Cardiovascular: positive: Regular Rate, S1, S2 Gastrointestinal/Abdominal: positive: Soft. negative: Tender Extremity: positive: Normal Inspection Integumentary: positive: Dry, Warm Neurologic: positive: Fully Oriented, Alert, Normal Mood/Affect ED Treatment Course - LABORATORY CBC & Chemistry Diagram: 03/30/17 09:14 03/30/17 09:14 - RADIOLOGY Radiology Studies Ordered: Category Date Time Status CHEST X-RAY PORTABLE* [RAD] Stat Radiology 03/30/17 08:47 Ordered Medical Decision Making - Medical Decision Making 03/30/17 08:56 Patient is a 86-year-old female with history of ITP treated in the past with Q monthly platelet transfusion and has been treated w/ gammaglobulin and rituxan, HTN, HLD, coronary disease, mitral valve prolapse, TIA, kidney and liver cysts, ?anxiety, brought in by son who states Dr. Pritchett referred patient for platelet check. Son reports that for the past year, patient has had difficulty with ambulation and balance issues despite using cane which causes difficulty getting pt out of the house to her appointments. Because of this, patient's missed last platelet transfusion a month ago. Patient's symptoms today appears chronic in nature. Besides imbalance/gait issue for over a year, patient also complains of intermittent lightheadedness and sob mostly on exertion which is not new. No chest pain, diaphoresis, nausea or vomiting at this time. No recent cardiac w/u See exam H/o ITP, missed recent plt transfusion 2/2 chronic balance/gait issues (being w/ u by PMD per son) No news sxs today Well gerardo an stable in ED -labs -discuss dispo w/ Dr Pritchett who referred pt 03/30/17 09:01 03/30/17 11:32 Case d/w Dr Pritchett, who was made aware of platelet of 36. States no intervention needed at this time, especially in the setting of no active bleeding. States patient last received Decadron a month ago. Wants patient to contact office in the morning. States patient's intermittent dizziness and gait issues are all chronic and being worked up by Dr. Mooney, no intervention necessary in ED as per MD. EKG and rest of labs unremarkable. Pt stable for discharge *DC/Admit/Observation/Transfer Diagnosis at time of Disposition: Chronic ITP (idiopathic thrombocytopenic purpura) - Discharge Dispostion Disposition: HOME Condition at time of disposition: Good - Referrals Referrals: Epifanio Mooney MD [Primary Care Provider] - - Patient Instructions Additional Instructions: Please contact Dr. Pritchett in the a.m. - Post Discharge Activity
[2017-03-30 09:39] LABS: BASOPHIL 1.2 % (0-2.0); EOSINOPHIL 2.2 % (0-4.5); MCH 30.3 pg (25.7-33.7); MCHC 35.2 g/dl (32.0-36.0); MEAN CELL VOLUME 86.1 fl (80-96); MEAN PLT VOLUME 10.8 fl (7.5-11.1); PLATELET COUNT 36 K/MM3 (134-434); RDW 13.6 % (11.6-15.6); WHITE BLOOD COUNT 6.4 K/mm3 (4.0-10.0)
[2017-03-30 09:58] LABS: ANION GAP 6 (8-16); CALCIUM 8.7 mg/dL (8.5-10.1); CO2 29 mmol/L (21-32); CREATININE 0.8 mg/dL (0.55-1.02); GLUCOSE,RANDOM 104 mg/dL (74-106); SGPT/ALT 22 U/L (12-78)
[2017-03-30 10:03] LABS: ALK PHOS 71 U/L (45-117); BILIRUBIN,TOTAL 0.8 mg/dL (0.2-1.0); CPK 65 IU/L (26-192); TOT PROT 6.5 g/dl (6.4-8.2); TROPONIN I < 0.02 ng/ml (0.00-0.05)
--- NOTE | 2017-03-30 10:03 | PDOC ---
*Physical Exam - Vital Signs Last Vital Signs Temp Pulse Resp BP Pulse Ox 97.5 F L 78 20 166/88 98 03/30/17 08:34 03/30/17 08:34 03/30/17 08:34 03/30/17 08:34 03/30/17 08:34 Heart Score/ECG Review #1 03/30/17 10:02 Twelve-lead EKG was performed and reviewed by me. Normal sinus rhythm, rate 62. Normal axis and normal intervals. T-wave inversion in lead 3 and T-wave flattening in aVF and V3. No change compared to EKG from 01/06/2016. ED Treatment Course - LABORATORY CBC & Chemistry Diagram: 03/30/17 09:14 03/30/17 09:14 - ADDITIONAL ORDERS Additional order review: 03/30/17 09:14 RBC 4.89 MCV 86.1 MCHC 35.2 RDW 13.6 MPV 10.8 D Neutrophils % 75.0 Lymphocytes % 14.6 D Monocytes % 7.0 Eosinophils % 2.2 D Basophils % 1.2 D Medical Decision Making - Medical Decision Making 03/30/17 10:03 Pt seen by the Advanced Practice Provider under my direct supervision Ancillary studies reviewed I agree with plan as outlined by the Advanced Practice Provider *DC/Admit/Observation/Transfer Diagnosis at time of Disposition: Chronic ITP (idiopathic thrombocytopenic purpura) - Discharge Dispostion Disposition: HOME Condition at time of disposition: Good - Referrals Referrals: Epifanio Mooney MD [Primary Care Provider] - - Patient Instructions Additional Instructions: Please contact Dr. Pritchett in the a.m. - Post Discharge Activity - Attestations Physician Attestion: 03/30/17 11:44 I, Dr. Martha Akhtar MD, attest that this document has been prepared under my direction and personally reviewed by me in its entirety. I further attest, that it accurately reflects all work, treatment, procedures and medical decision -making performed by me.
[2017-03-30 10:19] LABS: SGOT/AST 24 U/L (15-37)
[2017-03-30 10:41] LABS: URINE APPEARANCE CLEAR; URINE BILIRUBIN NEGATIVE (NEGATIVE); URINE BLOOD 2+ (NEGATIVE); URINE COLOR LT. YELLOW; URINE GLUCOSE (UA) NEGATIVE (NEGATIVE); URINE KETONE 1+ (NEGATIVE); URINE NITRITE NEGATIVE (NEGATIVE); URINE PROTEIN NEGATIVE (NEGATIVE); URINE UROBILINOGEN 0.2 mg/dL (0.2-1.0)
[2017-03-30 11:30] LABS: INR 1.04 (0.82-1.09); PROTHROMBIN TIME (PATIENT) 11.7 SEC (9.98-11.88)
[2017-03-30 12:00] VITALS: BP 133/91; PULSE 73
--- NOTE | 2017-03-30 12:55 | EKG ---
Test Reason : Blood Pressure : / mmHG Vent. Rate : 062 BPM Atrial Rate : 062 BPM P-R Int : 164 ms QRS Dur : 100 ms QT Int : 432 ms P-R-T Axes : 032 021 031 degrees QTc Int : 438 ms NORMAL SINUS RHYTHM NONSPECIFIC ST AND T WAVE ABNORMALITY ABNORMAL ECG WHEN COMPARED WITH ECG OF 06-JAN-2016 14:04, NO SIGNIFICANT CHANGE WAS FOUND Confirmed by FANI ALTMAN MD ([id number]) on 03/30/2017 12:54:48 PM Referred By: Confirmed By:FANI ALTMAN MD
[2017-03-30 14:43] LABS: URINE BACTERIA RARE /hpf (NONE SEEN); URINE HYALINE CAST 1 /lpf; URINE MUCUS RARE; URINE RBC 2 /hpf (0-3); URINE WBC 34 /hpf (3-5)
[2017-03-30 19:05] LABS: URINE LEUK ESTERASE 2+ (NEGATIVE)
== END 2017-03-30 11:59 | disposition home or self-care (01) ==
LOC: JER 08:32
DX: D69.3 Immune thrombocytopenic purpura (principal); I25.10 Atherosclerotic heart disease of native coronary artery without angina pectoris; I10 Essential (primary) hypertension; E78.00 Pure hypercholesterolemia, unspecified; I34.1 Nonrheumatic mitral (valve) prolapse; N28.1 Cyst of kidney, acquired; K76.89 Other specified diseases of liver
CPT/HCPCS: 36415; 71010-TC; 80053; 81003; 81015; 82550; 84484; 85025; 85610; 86850; 86900; 86901; 93005; 93010; 99283-25

== ENCOUNTER 2017-04-13 11:29 | Observation (INO) | payer BC ==
[2017-04-13 11:51] VITALS: BMI 21.9
[2017-04-13 13:37] LABS: BASO % 0.3 % (0-2.0); EOS % 3.3 % (0-4.5); MCH 30.5 pg (25.7-33.7); MCHC 34.9 g/dl (32.0-36.0); MEAN CELL VOLUME 87.3 fl (80-96); MEAN PLT VOLUME 9.6 fl (7.5-11.1); NEUT % 73.9 % (42.8-82.8); PLATELET COUNT 77 K/MM3 (134-434); RDW 13.7 % (11.6-15.6); WHITE BLOOD COUNT 7.5 K/mm3 (4.0-10.0)
[2017-04-13 14:03] LABS: INR 0.98 (0.82-1.09); PROTHROMBIN TIME (PATIENT) 11.1 SEC (9.98-11.88)
[2017-04-13 14:06] LABS: ACTIVATED PTT 25.8 SECONDS (26.9-34.4)
[2017-04-13 14:16] LABS: ALBUMIN 3.8 g/dl (3.4-5.0); ANION GAP 6 (8-16); BILIRUBIN,TOTAL 0.8 mg/dL (0.2-1.0); CALCIUM 8.3 mg/dL (8.5-10.1); CO2 32 mmol/L (21-32); CREATININE 0.6 mg/dL (0.55-1.02); GLUCOSE,RANDOM 97 mg/dL (74-106); SGOT/AST 20 U/L (15-37); SGPT/ALT 39 U/L (12-78); TOT PROT 6.5 g/dl (6.4-8.2)
[2017-04-13 14:24] LABS: ALK PHOS 76 U/L (45-117); THYROID STIMULATING HORMONE 0.89 uIU/ml (0.358-3.74)
[2017-04-13 14:50] LABS: CPK 24 IU/L (26-192); TROPONIN I < 0.02 ng/ml (0.00-0.05)
[2017-04-13] MEDS ORDERED: ATORVASTATIN CA 80 MG TABLET (FP) PO ONE (15:28)
[2017-04-13] MEDS ORDERED: ASPIRIN 81 MG CHEWABLE TABLETS PO ONE (15:28)
--- NOTE | 2017-04-13 15:48 | PDOC ---
History of Present Illness <Dave Harris - Last Filed: 04/13/17 16:00> - History of Present Illness Initial Comments: 04/13/17 15:41 "The patient is an 86 year old female with a significant PMH of ITP, HTN, hyperlipidemia, CAD, TIA, kidney cysts, and liver cysts who presents to the emergency department with generalized weakness over the past week and confusion yesterday. The patients son reports that the patient has been weak and had poor balance lately. He also notes that the patient has been fatigued and becomes winded with minimal exertion, such as when walking to the bathroom. The patient' s son reports that the patient was confused last night and attempted to use the TV remote as a phone for about 5 minutes before realizing her mistake. During this episode, pt was also witnessed to have word finding difficulties, saying the same things repeatedly. Son did not notice any facial droop or slurred speech at this time. Today, he believes she has returned to her baseline mentation. Pt denies any weakness/numbness/tingling in any extremity, denies CP/ SOB currently. Denies F/C. The patient denies headache and dizziness. Denies fever, chills, nausea, vomit, diarrhea and constipation. Denies dysuria, frequency, urgency and hematuria. 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 Appendectomy. Varicose vein surgery. Social history: No reported cigarette, alcohol, or drug use. PCP: Dr. Mooney [employer] Received: Dr. Mcknight " <GissellEdson - Last Filed: 04/14/17 15:52> - General Chief Complaint: Lightheaded Stated Complaint: WEAKNESS/lightheaded Time Seen by Provider: 04/13/17 11:40 NIH Stroke Scale - Last Known Well Date/Time & Onset Date Last Known Well: 04/12/17 Time Last Known Well: 18:00 - Initial Evaluation Level of consciousness: Alert Ask patient the month and their age: Answers both correctly Ask patient to open & close eyes; make fist and let go: Obeys both correctly Best gaze (horizontal eye movement): Normal Visual field testing: No visual field loss Facial paresis (Show teeth/raise eyebrows/close eyes tight): Normal symmetrical movement Motor Function: Left Arm: Normal Motor Function: Right Arm: Normal (extends arm 90 (or 45) degrees for 10 seconds without drift Motor Function: Left Leg: Normal (extends leg 30 degrees for 5 seconds without drift) Motor Function: Right Leg: Normal (extends leg 30 degrees for 5 seconds without drift) Limb Ataxia: No ataxia Sensory(Use pinprick test arms,legs,trunk,face/side to side): Normal Best language (Describe picture, name items, read sentences): No Aphasia Dysarthria (read several words): Normal articulation Extinction and Inattention: No abnormality - Total Score NIH Stroke Scale Score: 0 <Edson Borrero - Last Filed: 04/14/17 15:52> Past History <Dave Harris - Last Filed: 04/13/17 16:00> - Past Medical History Anemia: (ITP) Asthma: No Cancer: No Cardiac Disorders: Yes (valve leakage, blocked artery) CVA: (TIA) COPD: No CHF: No Dementia: No Diabetes: No GI Disorders: Yes (ibs) Disorders: Yes (Kidney cyst) HTN: Yes Hypercholesterolemia: Yes Liver Disease: Yes (liver cyst) Psychiatric Problems: Yes (ANXIETY.) Seizures: No Thyroid Disease: No - Surgical History 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) Appendectomy: Yes Cardiac Surgery: Yes (Varicose Veins) Cholecystectomy: No Lung Surgery: No Neurologic Surgery: No Orthopedic Surgery: No - Immunization History Immunization Up to Date: Yes - Suicide/Smoking/Psychosocial Hx Smoking Status: No Smoking History: Unknown if ever smoked Have you smoked in the past 12 months: No Number of Cigarettes Smoked Daily: 0 Information on smoking cessation initiated: No Hx Alcohol Use: No Drug/Substance Use Hx: No Substance Use Type: None Hx Substance Use Treatment: No <Edson Borrero - Last Filed: 04/14/17 15:52> - Past Medical History Allergies/Adverse Reactions: Allergies Allergy/AdvReac Type Severity Reaction Status Date / Time penicillin G Allergy Unknown Verified 04/13/17 11:51 carvedilol [From Coreg] Allergy Verified 04/13/17 11:51 ciprofloxacin [From Cipro] Allergy Verified 04/13/17 11:51 ciprofloxacin HCl Allergy Verified 04/13/17 11:51 [From Cipro] metoprolol succinate Allergy Verified 04/13/17 11:51 [From Toprol XL] clindamycin AdvReac Unknown DIARRHEA Verified 04/13/17 11:51 metoprolol AdvReac Unknown Verified 04/13/17 11:51 valsartan [From Diovan] AdvReac Unknown Verified 04/13/17 11:51 ESTRACE CREAM Allergy Uncoded 04/13/17 11:51 BENICAR AdvReac Uncoded 04/13/17 11:51 Home Medications: Ambulatory Orders Amlodipine Besylate [Norvasc -] 5 mg PO DAILY PRN 03/30/17 Atenolol [Tenormin] 50 mg PO BID 03/30/17 Bupropion HCl [Bupropion Xl] 150 mg PO DAILY 03/30/17 Hydrocodone/Acetaminophen [[place] 5-325 Tablet] 1 each PO TID PRN 03/30/17 Lisinopril [Zestril] 40 mg PO BID 03/30/17 Lovastatin [Altoprev] 40 mg PO DAILY 03/30/17 RX: Dexamethasone 40 mg PO MONTHLY 03/30/17 RX: Diazepam 10 mg PO TID 03/30/17 RX: Tramadol HCl 50 mg PO TID 03/30/17 Review of Systems - Review of Systems Comments:: 04/13/17 15:48 "GENERAL/CONSTITUTIONAL: (+) Generalized weakness. No fever or chills. HEAD, EYES, EARS, NOSE AND THROAT: No change in vision. No ear pain or discharge. No sore throat. CARDIOVASCULAR: no chest pain RESPIRATORY: No cough, wheezing, or hemoptysis. GASTROINTESTINAL: No nausea, vomiting, diarrhea or constipation. GENITOURINARY: No dysuria, frequency, or change in urination. MUSCULOSKELETAL: No joint or muscle swelling or pain. No neck or back pain. SKIN: No rash NEUROLOGIC: (+) Confusion, No headache, vertigo, loss of consciousness. ENDOCRINE: No increased thirst. No abnormal weight change. HEMATOLOGIC/LYMPHATIC: No anemia, easy bleeding, or history of blood clots. ALLERGIC/IMMUNOLOGIC: No hives or skin allergy. " <Edson Borrero - Last Filed: 04/14/17 15:52> *Physical Exam - Vital Signs Last Vital Signs Temp Pulse Resp BP Pulse Ox 98.4 F 77 18 133/77 100 04/13/17 11:30 04/13/17 11:30 04/13/17 11:30 04/13/17 11:30 04/13/17 11:30 <Dave Harris - Last Filed: 04/13/17 16:00> - Vital Signs Last Vital Signs Temp Pulse Resp BP Pulse Ox 98.4 F 77 18 133/77 100 04/13/17 11:30 04/13/17 11:30 04/13/17 11:30 04/13/17 11:30 04/13/17 11:30 - Physical Exam Comments: 04/13/17 15:48 "GENERAL: Awake, alert, and fully oriented, in no acute distress HEAD: No signs of trauma EYES: PERRLA, EOMI, sclera anicteric, conjunctiva clear ENT: Auricles normal inspection, hearing grossly normal, nares patent, oropharynx clear without exudates. Moist mucosa NECK: Nontender, no stepoffs, Normal ROM, supple, no lymphadenopathy, JVD, or masses LUNGS: Breath sounds equal, clear to auscultation bilaterally. No wheezes, and no crackles HEART: Regular rate and rhythm, normal S1 and S2, no murmurs, rubs or gallops ABDOMEN: Soft, nontender, normoactive bowel sounds. No guarding, no rebound. No masses EXTREMITIES: Normal range of motion, no edema. No clubbing or cyanosis. No cords, erythema, or tenderness NEUROLOGICAL: Cranial nerves II through XII intact. 5/5 strength and sensation in all extremities, Normal speech, normal gait, cerebellar function intact SKIN: Warm, Dry, normal turgor, no rashes or lesions noted. " <GissellEdson - Last Filed: 04/14/17 15:52> Heart Score/ECG Review - ECG Impressions Comment:: 04/13/17 15:49 NSR, no SUNDAY/STDs, no TWIs, axis wnl, intervals wnl, Q waves inferiorly and anteriorly <Edson Borrero - Last Filed: 04/14/17 15:52> ED Treatment Course - LABORATORY CBC & Chemistry Diagram: 04/13/17 13:10 04/13/17 13:10 - ADDITIONAL ORDERS Additional order review: Laboratory Results 04/13/17 04/13/17 04/13/17 13:10 13:10 13:10 PT with INR 11.10 INR 0.98 PTT (Actin FS) 25.8 L Sodium 135 L Potassium 3.4 L Chloride 97 L Carbon Dioxide 32 Anion Gap 6 L BUN 11 Creatinine 0.6 D Creat Clearance w eGFR > 60 Random Glucose 97 Lactic Acid 1.1 Calcium 8.3 L Total Bilirubin 0.8 AST 20 ALT 39 D Alkaline Phosphatase 76 Creatine Kinase 24 L Troponin I < 0.02 B-Natriuretic Peptide 239.76 Total Protein 6.5 Albumin 3.8 TSH 0.89 D 04/13/17 13:10 PT with INR INR PTT (Actin FS) Sodium Potassium Chloride Carbon Dioxide Anion Gap BUN Creatinine Creat Clearance w eGFR Random Glucose Lactic Acid Calcium Total Bilirubin AST ALT Alkaline Phosphatase Creatine Kinase Cancelled Troponin I Cancelled B-Natriuretic Peptide Cancelled Total Protein Albumin TSH 04/13/17 13:10 RBC 5.19 MCV 87.3 MCHC 34.9 RDW 13.7 MPV 9.6 D Neutrophils % 73.9 Lymphocytes % 12.9 Monocytes % 9.6 Eosinophils % 3.3 Basophils % 0.3 - Additional Consults Consult/PCP: Dr. Ontiveros (Neurology) <Dave Harris - Last Filed: 04/13/17 16:00> - LABORATORY CBC & Chemistry Diagram: 04/14/17 05:05 04/14/17 05:05 - ADDITIONAL ORDERS Additional order review: Laboratory Results 04/13/17 04/13/17 04/13/17 13:10 13:10 13:10 PT with INR 11.10 INR 0.98 PTT (Actin FS) 25.8 L Sodium 135 L Potassium 3.4 L Chloride 97 L Carbon Dioxide 32 Anion Gap 6 L BUN 11 Creatinine 0.6 D Creat Clearance w eGFR > 60 Random Glucose 97 Lactic Acid 1.1 Calcium 8.3 L Total Bilirubin 0.8 AST 20 ALT 39 D Alkaline Phosphatase 76 Creatine Kinase 24 L Troponin I < 0.02 B-Natriuretic Peptide 239.76 Total Protein 6.5 Albumin 3.8 TSH 0.89 D 04/13/17 13:10 PT with INR INR PTT (Actin FS) Sodium Potassium Chloride Carbon Dioxide Anion Gap BUN Creatinine Creat Clearance w eGFR Random Glucose Lactic Acid Calcium Total Bilirubin AST ALT Alkaline Phosphatase Creatine Kinase Cancelled Troponin I Cancelled B-Natriuretic Peptide Cancelled Total Protein Albumin TSH 04/13/17 13:10 RBC 5.19 MCV 87.3 MCHC 34.9 RDW 13.7 MPV 9.6 D Neutrophils % 73.9 Lymphocytes % 12.9 Monocytes % 9.6 Eosinophils % 3.3 Basophils % 0.3 - RADIOLOGY Radiology Studies Ordered: Category Date Time Status HEAD CT WITHOUT CONTRAST [CT] Stat CT Scan 04/13/17 13:08 Completed BRAIN MRI W/O CONTRAST [MRI] Stat MRI 04/13/17 15:27 Ordered CHEST PA & LAT [RAD] Stat Radiology 04/13/17 13:09 Ordered <Edson Borrero - Last Filed: 04/14/17 15:52> Medical Decision Making - Medical Decision Making 04/13/17 15:51 86 F with generalized weakness and an episode of word-finding difficulty and confusion last night. Neuro exam now normal. Concerning for TIA. Pt with non- focal neuro exam at this time, with last known normal being last night. Not a tpa candidate due to NIHSS 0 and pt being outside window. - CT head - Labs - Neuro consult 04/13/17 15:52 CTH unremarkable. Case discussed with Dr. 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 MRI brain ordered. Pt started on aspirin and statin. 04/13/17 16:[address] Jiménez <Edson Borrero - Last Filed: 04/14/17 15:52> *DC/Admit/Observation/Transfer - Attestations Scribe Attestion: 04/13/17 15:54 Documentation prepared by Dave Harris, acting as medical chief technician for Edson Borrero MD. <Dave Harris - Last Filed: 04/13/17 16:00> - Discharge Dispostion Admit: Yes - Attestations Physician Attestion: 04/13/17 16:07 I, Dr. Edson Borrero MD, attest that this document has been prepared under my direction and personally reviewed by me in its entirety. I further attest, that it accurately reflects all work, treatment, procedures and medical decision -making performed by me. <Edson Borrero - Last Filed: 04/14/17 15:52> Diagnosis at time of Disposition: TIA (transient ischemic attack)
[2017-04-13] MEDS ORDERED: ASPIRIN 81 MG CHEWABLE TABLETS ONE (16:25)
--- NOTE | 2017-04-13 16:25 | HP ---
Admitting History and Physical - Primary Care Physician PCP: Epifanio Mooney - Admission Chief Complaint: I'm weak History of Present Illness: Ms Gutierrez is an 86 year old female who comes in with weakness. Unfortunately she is a very vague historian and it is unclear the exact reason why she came to the hospital. She says that she has a chronic history of intermittent weakness and vertigo. She says it comes and goes and she has been experiencing it again recently. She cannot tell me when this episode started or how long it has been going on. She says it is no worse than the other episodes and when asked what about this episode today made her come in she said because she was weak and dizzy and would not further elaborate on this. Her son says that her blood pressure has been running high in the morning with systolics above 170. She takes her medications and her symptoms and blood pressure improve, however then she eats less because she is taking medications on an empty stomach. He also says that she had an episode of confusion last night. He states she was attempting to call her daughter on the television remote control and had some word finding difficulties. These resolved, again difficult to tease out if this improved with improved blood pressure control or prior to taking her medications. She currently says she feels "not too bad but not too good". She says she still feels weak. She denies fevers, chills, current dizziness, passing out, chest pain, shortness of breath, nausea, vomiting, diarrhea, constipation, difficulty or pain on urination, or swelling. History Source: Patient Limitations to Obtaining History: No Limitations - Past Medical History Cardiovascular: Yes: CAD (patient states that they cannot do anything about it due to her thrombocytopenia), HTN, Hyperlipdemia, Other (valve disease, patient says that she has something wrong with her valve but cannot remember the name) Heme/Onc: Yes: Other (ITP) - Past Surgical History Past Surgical History: Yes: Hysterectomy - Smoking History Smoking history: Unknown if ever smoked Have you smoked in the past 12 months: No Aproximately how many cigarettes per day: 0 - Alcohol/Substance Use Hx Alcohol Use: No History of Substance Use: reports: None - Social History Usual Living Arrangement: Yes: With Child ADL: Family Assistance History of Recent Travel: No Home Medications - Allergies Allergies/Adverse Reactions: Allergies Allergy/AdvReac Type Severity Reaction Status Date / Time penicillin G Allergy Unknown Verified 04/13/17 11:51 carvedilol [From Coreg] Allergy Verified 04/13/17 11:51 ciprofloxacin [From Cipro] Allergy Verified 04/13/17 11:51 ciprofloxacin HCl Allergy Verified 04/13/17 11:51 [From Cipro] metoprolol succinate Allergy Verified 04/13/17 11:51 [From Toprol XL] clindamycin AdvReac Unknown DIARRHEA Verified 04/13/17 11:51 metoprolol AdvReac Unknown Verified 04/13/17 11:51 valsartan [From Diovan] AdvReac Unknown Verified 04/13/17 11:51 ESTRACE CREAM Allergy Uncoded 04/13/17 11:51 BENICAR AdvReac Uncoded 04/13/17 11:51 - Home Medications Home Medications: Ambulatory Orders Amlodipine Besylate [Norvasc -] 5 mg PO DAILY PRN 03/30/17 Atenolol [Tenormin] 50 mg PO BID 03/30/17 Bupropion HCl [Bupropion Xl] 150 mg PO BID 03/30/17 Dexamethasone 40 mg PO MONTHLY 03/30/17 Diazepam 10 mg PO TID 03/30/17 Hydrocodone/Acetaminophen [[place] 5-325 Tablet] 1 each PO TID PRN 03/30/17 Lisinopril [Zestril] 40 mg PO BID 03/30/17 Lovastatin [Altoprev] 40 mg PO DAILY 03/30/17 Tramadol HCl 50 mg PO TID 03/30/17 Family Disease History - Family Disease History Family Disease History: Heart Disease: Mother, Brother Review of Systems Findings/Remarks: Full review of systems obtained, as per HPI and otherwise negative Physical Examination Vital Signs: Vital Signs Temperature 36.9 C 04/13/17 11:30 Pulse Rate 77 04/13/17 11:30 Respiratory Rate 18 04/13/17 11:30 Blood Pressure 133/77 04/13/17 11:30 O2 Sat by Pulse Oximetry (%) 100 04/13/17 11:30 Constitutional: Yes: Well Nourished, No Distress, Calm Eyes: Yes: Conjunctiva Clear, EOM Intact, PERRL HENT: Yes: Atraumatic, Normocephalic Cardiovascular: Yes: Regular Rate and Rhythm, Murmur. No: Gallop, Rub Respiratory: Yes: Regular, CTA Bilaterally. No: Rales, Rhonchi, Wheezes Gastrointestinal: Yes: Normal Bowel Sounds, Soft. No: Distention, Tenderness Extremities: Yes: WNL Edema: No Labs: CBC, BMP 04/13/17 13:10 04/13/17 13:10 Imaging - Results Cat Scan: Report Reviewed Problem List - Problems (1) Malignant hypertensive urgency Assessment/Plan: -patient presents with signs of malignant hypertensive urgency -with elevated blood pressures in the am and presentation of symptoms -per son resolve after blood pressure medications including prn amlodipine -will trial pm amlodipine while in the hospital (scheduled) -monitor blood pressure -may need to adjust if causes orthostatic hypotension -check orthostatic vital signs Code(s): I16.0 - HYPERTENSIVE URGENCY (2) TIA (transient ischemic attack) Assessment/Plan: -concern for TIA, however lower suspicion since happens qam -but with difficulty with word finding will evaluate -continue aspirin started in the ED -neurology consult -ECHO and carotid ultrasound ordered -PT consult Code(s): G45.9 - TRANSIENT CEREBRAL ISCHEMIC ATTACK, UNSPECIFIED (3) Chronic ITP (idiopathic thrombocytopenic purpura) Assessment/Plan: -stable Code(s): D69.3 - IMMUNE THROMBOCYTOPENIC PURPURA (4) Hyperlipidemia Assessment/Plan: -continue statin Code(s): E78.5 - HYPERLIPIDEMIA, UNSPECIFIED Qualifiers: Hyperlipidemia type: pure hypercholesterolemia Qualified Code(s): E78.00 - Pure hypercholesterolemia, unspecified (5) Hypertensive cardiovascular disease Assessment/Plan: -quiescent -continue home regimen Code(s): I11.9 - HYPERTENSIVE HEART DISEASE WITHOUT HEART FAILURE Qualifiers: Heart failure presence: without heart failure Qualified Code(s): I11.9 - Hypertensive heart disease without heart failure (6) Hypokalemia Assessment/Plan: -replace -recheck in am with magnesium Code(s): E87.6 - HYPOKALEMIA (7) Anxiety Assessment/Plan: -continue valium Code(s): F41.9 - ANXIETY DISORDER, UNSPECIFIED
[2017-04-13] MEDS ORDERED: ATORVASTATIN CA 80 MG TABLET (FP) ONE (16:26)
[2017-04-13 16:44] LABS: CHOLESTEROL 234 mg/dL (50-200)
[2017-04-13 16:53] LABS: URINE APPEARANCE CLEAR; URINE BILIRUBIN NEGATIVE (NEGATIVE); URINE BLOOD 1+ (NEGATIVE); URINE COLOR LTYELLOW; URINE GLUCOSE (UA) NEGATIVE (NEGATIVE); URINE KETONE NEGATIVE (NEGATIVE); URINE NITRITE NEGATIVE (NEGATIVE); URINE PROTEIN NEGATIVE (NEGATIVE); URINE UROBILINOGEN NEGATIVE mg/dL (0.2-1.0)
[2017-04-13] MEDS ORDERED: ACETAMINOPHEN 325 MG TABLET (FP) PO PRN (17:23)
[2017-04-13 17:40] LABS: URINE LEUK ESTERASE 3+ (NEGATIVE)
[2017-04-13 17:42] LABS: URINE BACTERIA RARE /hpf (NONE SEEN); URINE HYALINE CAST 3 /lpf; URINE RBC 2 /hpf (0-3); URINE WBC 18 /hpf (3-5)
[2017-04-13] MEDS ORDERED: POTASSIUM CHLORIDE TABS 20 MEQ TABLET.ER (FP) PO ONE ×2 (17:45→18:13)
[2017-04-13] MEDS ORDERED: amLODIPine BESYLATE 5 MG TABLET (FP) PO SCH (20:00)
[2017-04-13] MEDS ORDERED: amLODIPine BESYLATE 5 MG TABLET (FP) ONE (20:21)
[2017-04-13 20:29] LABS: URINE LEUK ESTERASE 2+ (NEGATIVE)
[2017-04-13] MEDS: diazePAM 5 MG TABLET PO SCH (22:33)
[2017-04-13] MEDS: traMADol HCL 50 MG TABLET PO SCH (22:34)
[2017-04-13] MEDS: ATORVASTATIN CA 10 MG TABLET (FP) PO SCH (22:34)
[2017-04-13] MEDS: LISINOPRIL 20 MG TABLET (FP) PO SCH (22:37)
[2017-04-13] MEDS: ATENOLOL 25 MG TABLET (FP) PO SCH (22:37)
[2017-04-14] MEDS: diazePAM 5 MG TABLET PO SCH ×3 (05:53→21:32)
[2017-04-14] MEDS: traMADol HCL 50 MG TABLET PO SCH ×3 (05:53→21:32)
[2017-04-14 07:31] LABS: BASO % 0.2 % (0-2.0); EOS % 3.4 % (0-4.5); MCH 30.4 pg (25.7-33.7); MCHC 35.4 g/dl (32.0-36.0); MEAN CELL VOLUME 85.8 fl (80-96); NEUT % 64.4 % (42.8-82.8); PLATELET COUNT 67 K/MM3 (134-434); RDW 14.1 % (11.6-15.6); WHITE BLOOD COUNT 7.1 K/mm3 (4.0-10.0)
[2017-04-14 08:00] LABS: ANION GAP 9 (8-16); CO2 27 mmol/L (21-32); CREATININE 0.5 mg/dL (0.55-1.02); GLUCOSE,RANDOM 97 mg/dL (74-106); MAGNESIUM 2.1 mg/dL (1.8-2.4)
[2017-04-14] MEDS ORDERED: PT OWN MED DRAWER 7, Y5N ONE ×2 (09:46→21:33)
[2017-04-14] MEDS ORDERED: ASPIRIN COATED 81 MG TABLET.EC PO SCH (10:00)
--- NOTE | 2017-04-14 10:05 | CONSULT ---
Consult - text type - Consultation Consultation Note: Neurology History of Present Illness The patient is an 86 year old female with a significant PMH of ITP, HTN, hyperlipidemia, CAD, TIA, kidney cysts, and liver cysts who presents to the emergency department with generalized weakness and reported confusion. The patients son reports that the patient has been weak and had poor balance lately. He also notes that the patient has been fatigued and becomes winded with minimal exertion, such as when walking to the bathroom. The patient's son reports that the patient was confused night before admission attempted to use the TV remote as a phone for about 5 minutes before realizing her mistake. Reportedly also witnessed to have word finding difficulties, saying the same things repeatedly. Son did not notice any facial droop or slurred speech at this time. She had returned to her baseline mentation. Pt denies any weakness/ numbness/tingling in any extremity, denies CP/SOB currently. Denies F/C. She was not a TPA case as she was out of the window. She was admitted and completed MRI brain that I had recommended which did not show acute changes. She does not take a daily ASA because of low platelet count. Neurologically is asymptomatic. Past History - Past Medical History Anemia: (ITP) Asthma: No Cancer: No Cardiac Disorders: Yes (valve leakage, blocked artery) CVA: (TIA) COPD: No CHF: No Dementia: No Diabetes: No GI Disorders: Yes (ibs) Disorders: Yes (Kidney cyst) HTN: Yes Hypercholesterolemia: Yes Liver Disease: Yes (liver cyst) Psychiatric Problems: Yes (ANXIETY.) Seizures: No Thyroid Disease: No - Surgical History 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) Appendectomy: Yes Cardiac Surgery: Yes (Varicose Veins) Cholecystectomy: No Lung Surgery: No Neurologic Surgery: No Orthopedic Surgery: No - Immunization History Immunization Up to Date: Yes - Suicide/Smoking/Psychosocial Hx Smoking Status: No Smoking History: Unknown if ever smoked Have you smoked in the past 12 months: No Number of Cigarettes Smoked Daily: 0 Information on smoking cessation initiated: No Hx Alcohol Use: No Drug/Substance Use Hx: No Substance Use Type: None Hx Substance Use Treatment: No - Past Medical History Allergies/Adverse Reactions: Allergies Allergy/AdvReac Type Severity Reaction Status Date / Time penicillin G Allergy Unknown Verified 04/13/17 11:51 carvedilol [From Coreg] Allergy Verified 04/13/17 11:51 ciprofloxacin [From Cipro] Allergy Verified 04/13/17 11:51 ciprofloxacin HCl Allergy Verified 04/13/17 11:51 [From Cipro] metoprolol succinate Allergy Verified 04/13/17 11:51 [From Toprol XL] clindamycin AdvReac Unknown DIARRHEA Verified 04/13/17 11:51 metoprolol AdvReac Unknown Verified 04/13/17 11:51 valsartan [From Diovan] AdvReac Unknown Verified 04/13/17 11:51 ESTRACE CREAM Allergy Uncoded 04/13/17 11:51 BENICAR AdvReac Uncoded 04/13/17 11:51 Home Medications: Ambulatory Orders Amlodipine Besylate [Norvasc -] 5 mg PO DAILY PRN 03/30/17 Atenolol [Tenormin] 50 mg PO BID 03/30/17 Bupropion HCl [Bupropion Xl] 150 mg PO BID 03/30/17 Dexamethasone 40 mg PO MONTHLY 03/30/17 Diazepam 10 mg PO TID 03/30/17 Hydrocodone/Acetaminophen [[place] 5-325 Tablet] 1 each PO TID PRN 03/30/17 Lisinopril [Zestril] 40 mg PO BID 03/30/17 Lovastatin [Altoprev] 40 mg PO DAILY 03/30/17 Tramadol HCl 50 mg PO TID 03/30/17 Review of Systems "GENERAL/CONSTITUTIONAL: (+) Generalized weakness. No fever or chills. HEAD, EYES, EARS, NOSE AND THROAT: No change in vision. No ear pain or discharge. No sore throat. CARDIOVASCULAR: no chest pain RESPIRATORY: No cough, wheezing, or hemoptysis. GASTROINTESTINAL: No nausea, vomiting, diarrhea or constipation. GENITOURINARY: No dysuria, frequency, or change in urination. MUSCULOSKELETAL: No joint or muscle swelling or pain. No neck or back pain. SKIN: No rash NEUROLOGIC: (+) Confusion, No headache, vertigo, loss of consciousness. ENDOCRINE: No increased thirst. No abnormal weight change. HEMATOLOGIC/LYMPHATIC: No anemia, easy bleeding, or history of blood clots. ALLERGIC/IMMUNOLOGIC: No hives or skin allergy. *Physical Exam Vital Signs Temperature 97.9 F 04/14/17 02:00 Pulse Rate 68 04/14/17 06:00 Respiratory Rate 20 04/14/17 06:00 Blood Pressure 134/66 04/14/17 06:00 O2 Sat by Pulse Oximetry (%) 95 04/14/17 00:00 "GENERAL: Awake, alert, and fully oriented, in no acute distress HEAD: No signs of trauma EYES: PERRLA, EOMI, sclera anicteric, conjunctiva clear ENT: Auricles normal inspection, hearing grossly normal, nares patent, oropharynx clear without exudates. Moist mucosa NECK: Nontender, no stepoffs, Normal ROM, supple, no lymphadenopathy, JVD, or masses LUNGS: Breath sounds equal, clear to auscultation bilaterally. No wheezes, and no crackles HEART: Regular rate and rhythm, normal S1 and S2, no murmurs, rubs or gallops ABDOMEN: Soft, nontender, normoactive bowel sounds. No guarding, no rebound. No masses EXTREMITIES: Normal range of motion, no edema. No clubbing or cyanosis. No cords, erythema, or tenderness NEUROLOGICAL: Cranial nerves II through XII intact. 5/5 strength and sensation in all extremities, no slurred speech, finger to nose intact, cane at bedside for ambulation SKIN: Warm, Dry, normal turgor, no rashes or lesions noted. 04/14/17 05:05 04/14/17 05:05 - RADIOLOGY CT head reviewed MRI brain reviewed Medical Decision Making 86 year old female with a significant PMH of ITP, HTN, hyperlipidemia, CAD, TIA , kidney cysts, and liver cysts who presents to the emergency department with generalized weakness and reported confusion. The patients son reports that the patient has been weak and had poor balance lately. He also notes that the patient has been fatigued and becomes winded with minimal exertion, such as when walking to the bathroom. The patient's son reports that the patient was confused night before admission attempted to use the TV remote as a phone for about 5 minutes before realizing her mistake. Reportedly also witnessed to have word finding difficulties, saying the same things repeatedly. Son did not notice any facial droop or slurred speech at this time. She had returned to her baseline mentation. Pt denies any weakness/numbness/tingling in any extremity, denies CP/SOB currently. Denies F/C. She was not a TPA case as she was out of the window. She was admitted for possible and completed MRI brain that I had recommended which did not show acute changes. She does not take a daily ASA because of low platelet count. Neurologically is asymptomatic. Should continue blood pressure control, maintain <130/90. Continue Statin for hyperlipidemia, maintain LDL <100. Monitor gait, consider physical therapy as outpatient. Continue using cane, fall precautions.
[2017-04-14] MEDS ORDERED: amLODIPine BESYLATE 5 MG TABLET (FP) PO SCH (10:36)
[2017-04-14] MEDS: LISINOPRIL 20 MG TABLET (FP) PO SCH ×2 (10:40→21:35)
[2017-04-14] MEDS: ATENOLOL 25 MG TABLET (FP) PO SCH (10:40)
--- NOTE | 2017-04-14 11:12 | PN ---
Progress Note, Physician Chief Complaint: Ms Gutierrez remains vague in her subjective. She denies headache, chest pain, shortness of breath, nausea/vomiting. However if asked if her weakness is improved or if she is feeling less fatigued she states she thinks she feels the same as always and cannot tell me if her presenting symptoms are improved. - Current Medication List Current Medications: Active Medications Acetaminophen (Tylenol -) 650 mg PO Q4H PRN PRN Reason: FEVER OR PAIN Amlodipine Besylate (Norvasc -) 5 mg PO DAILY@1999 [facility] Atenolol (Tenormin -) 50 mg PO BID [facility] Atorvastatin Calcium (Lipitor -) 10 mg PO HS [facility] Last Admin: 04/13/17 22:34 Dose: 10 mg Bupropion HCl (Wellbutrin Xl -) 150 mg PO BID [facility] Last Admin: 04/14/17 10:40 Dose: 150 mg Diazepam (Valium -) 10 mg PO TID [facility] Last Admin: 04/14/17 05:53 Dose: 10 mg Lisinopril (Prinivil) 40 mg PO BID [facility] Tramadol HCl (Ultram -) 50 mg PO TID [facility] Last Admin: 04/14/17 05:53 Dose: 50 mg - Objective Vital Signs: Vital Signs Temperature 36.3 C L 04/14/17 10:00 Pulse Rate 78 04/14/17 10:00 Respiratory Rate 20 04/14/17 10:00 Blood Pressure 122/76 04/14/17 10:00 O2 Sat by Pulse Oximetry (%) 95 04/14/17 00:00 Constitutional: Yes: Well Nourished, No Distress, Calm Cardiovascular: Yes: Regular Rate and Rhythm, Murmur. No: Gallop, Rub Respiratory: Yes: Regular, CTA Bilaterally. No: Rales, Rhonchi, Wheezes Gastrointestinal: Yes: Normal Bowel Sounds, Soft. No: Distention, Tenderness Extremities: Yes: WNL Edema: No Labs: CBC, BMP 04/14/17 05:05 04/14/17 05:05 INR, PTT INR 0.98 (0.82-1.09) 04/13/17 13:10 Problem List - Problems (1) Malignant hypertensive urgency Code(s): I16.0 - HYPERTENSIVE URGENCY (2) TIA (transient ischemic attack) Code(s): G45.9 - TRANSIENT CEREBRAL ISCHEMIC ATTACK, UNSPECIFIED (3) Chronic ITP (idiopathic thrombocytopenic purpura) Code(s): D69.3 - IMMUNE THROMBOCYTOPENIC PURPURA (4) Hyperlipidemia Code(s): E78.5 - HYPERLIPIDEMIA, UNSPECIFIED Qualifiers: Hyperlipidemia type: pure hypercholesterolemia Qualified Code(s): E78.00 - Pure hypercholesterolemia, unspecified (5) Hypertensive cardiovascular disease Code(s): I11.9 - HYPERTENSIVE HEART DISEASE WITHOUT HEART FAILURE Qualifiers: Heart failure presence: without heart failure Qualified Code(s): I11.9 - Hypertensive heart disease without heart failure (6) Hypokalemia Code(s): E87.6 - HYPOKALEMIA (7) Anxiety Code(s): F41.9 - ANXIETY DISORDER, UNSPECIFIED Assessment/Plan (1) Malignant hypertensive urgency Assessment/Plan: -patient's blood pressure much improved today -with addition of evening amlodipine, well controlled -noted that after amlodipine at 20:00 she did not require her lisinopril or atenolol last night -well monitor today, if again does not require lisinopril or atenolol at night will plan to decrease these doses to qam only -however patient is on a low salt diet, possible that her salt intake is higher as an outpatient and may need increase dose -will d/w Dr Mooney on discharge so this can be closely followed up Code(s): I16.0 - HYPERTENSIVE URGENCY (2) TIA (transient ischemic attack) Assessment/Plan: -appreciate neurology assistance -MRI reviewed -will obtain ECHO and carotid ultrasound -PT consult -will stop aspirin secondary to platelets as per neurology notes Code(s): G45.9 - TRANSIENT CEREBRAL ISCHEMIC ATTACK, UNSPECIFIED (3) Chronic ITP (idiopathic thrombocytopenic purpura) Assessment/Plan: -stable Code(s): D69.3 - IMMUNE THROMBOCYTOPENIC PURPURA (4) Hyperlipidemia Assessment/Plan: -continue statin Code(s): E78.5 - HYPERLIPIDEMIA, UNSPECIFIED Qualifiers: Hyperlipidemia type: pure hypercholesterolemia Qualified Code(s): E78.00 - Pure hypercholesterolemia, unspecified (5) Hypertensive cardiovascular disease Assessment/Plan: -quiescent -continue home regimen Code(s): I11.9 - HYPERTENSIVE HEART DISEASE WITHOUT HEART FAILURE Qualifiers: Heart failure presence: without heart failure Qualified Code(s): I11.9 - Hypertensive heart disease without heart failure (6) Hypokalemia Assessment/Plan: -repleted Code(s): E87.6 - HYPOKALEMIA (7) Anxiety Assessment/Plan: -continue valium Code(s): F41.9 - ANXIETY DISORDER, UNSPECIFIED Dispo -plan for discharge tomorrow
--- NOTE | 2017-04-14 11:39 | EKG ---
Test Reason : Blood Pressure : / mmHG Vent. Rate : 076 BPM Atrial Rate : 076 BPM P-R Int : 152 ms QRS Dur : 092 ms QT Int : 394 ms P-R-T Axes : 006 -13 016 degrees QTc Int : 443 ms POOR DATA QUALITY, INTERPRETATION MAY BE ADVERSELY AFFECTED NORMAL SINUS RHYTHM MODERATE VOLTAGE CRITERIA FOR LVH, MAY BE NORMAL VARIANT INFERIOR INFARCT , AGE UNDETERMINED ANTERIOR INFARCT , AGE UNDETERMINED ABNORMAL ECG WHEN COMPARED WITH ECG OF 30-MAR-2017 09:53, ANTERIOR INFARCT IS NOW PRESENT INFERIOR INFARCT IS NOW PRESENT NONSPECIFIC T WAVE ABNORMALITY NOW EVIDENT IN LATERAL LEADS Confirmed by MADELYN MAO MD ([id number]) on 04/14/2017 11:39:28 AM Referred By: Confirmed By:MADELYN MAO MD
[2017-04-14] MEDS: ATENOLOL 50 MG TABLET (FP) PO SCH ×2 (12:15→21:35)
[2017-04-14] MEDS ORDERED: POTASSIUM CHLORIDE TABS 20 MEQ TABLET.ER (FP) PO ONE (15:00)
[2017-04-14 18:24] LABS: ANION GAP 9 (8-16); CALCIUM 8.4 mg/dL (8.5-10.1); CO2 26 mmol/L (21-32); CREATININE 0.6 mg/dL (0.55-1.02); GLUCOSE,RANDOM 71 mg/dL (74-106)
[2017-04-14] MEDS: ATORVASTATIN CA 10 MG TABLET (FP) PO SCH (21:32)
[2017-04-15] MEDS: diazePAM 5 MG TABLET PO SCH (06:06)
[2017-04-15] MEDS: traMADol HCL 50 MG TABLET PO SCH (06:06)
[2017-04-15 07:58] LABS: BASO % 0.3 % (0-2.0); EOS % 2.2 % (0-4.5); MCH 30.3 pg (25.7-33.7); MCHC 35.1 g/dl (32.0-36.0); MEAN CELL VOLUME 86.2 fl (80-96); MEAN PLT VOLUME 9.9 fl (7.5-11.1); NEUT % 71.9 % (42.8-82.8); PLATELET COUNT 58 K/MM3 (134-434); RDW 14.1 % (11.6-15.6); WHITE BLOOD COUNT 5.8 K/mm3 (4.0-10.0)
[2017-04-15 08:23] LABS: ANION GAP 10 (8-16); CALCIUM 8.6 mg/dL (8.5-10.1); CO2 29 mmol/L (21-32); CREATININE 0.7 mg/dL (0.55-1.02); GLUCOSE,RANDOM 105 mg/dL (74-106); PHOSPHOROUS 2.9 mg/dL (2.5-4.9)
[2017-04-15] MEDS ORDERED: PT OWN MED DRAWER 7, Y5N ONE (09:21)
[2017-04-15] MEDS: ATENOLOL 50 MG TABLET (FP) PO SCH (09:53)
[2017-04-15] MEDS: LISINOPRIL 20 MG TABLET (FP) PO SCH (09:53)
--- NOTE | 2017-04-15 09:57 | PN ---
Progress Note (short form) - Note Progress Note: Neurology History of Present Illness The patient is an 86 year old female with a significant PMH of ITP, HTN, hyperlipidemia, CAD, TIA, kidney cysts, and liver cysts who presents to the emergency department with generalized weakness and reported confusion. The patients son reported that the patient has been weak and had poor balance lately. He also notes that the patient has been fatigued and becomes winded with minimal exertion, such as when walking to the bathroom. The patient's son reported that the patient was confused night before admission attempted to use the TV remote as a phone for about 5 minutes before realizing her mistake. Reportedly also witnessed to have word finding difficulties, saying the same things repeatedly. Son did not notice any facial droop or slurred speech at this time. She had returned to her baseline mentation. Pt denied any weakness/ numbness/tingling in any extremity, denies CP/SOB currently. Denies F/C. She was not a TPA case as she was out of the window. She was admitted and completed MRI brain that did not show acute changes. She does not take a daily ASA because of low platelet count. Neurologically is asymptomatic. CD completed and did not show HD significant stenosis. Echo also completed and with normal LV function. Discussed with patient. Possibly for discharge today. Active Medications Acetaminophen (Tylenol -) 650 mg PO Q4H PRN PRN Reason: FEVER OR PAIN Amlodipine Besylate (Norvasc -) 5 mg PO DAILY@1999 [facility] Last Admin: 04/14/17 21:32 Dose: 5 mg Atenolol (Tenormin -) 50 mg PO BID [facility] Last Admin: 04/15/17 09:53 Dose: 50 mg Atorvastatin Calcium (Lipitor -) 10 mg PO HS [facility] Last Admin: 04/14/17 21:32 Dose: 10 mg Bupropion HCl (Wellbutrin Xl -) 150 mg PO BID [facility] Last Admin: 04/15/17 09:53 Dose: 150 mg Diazepam (Valium -) 10 mg PO TID [facility] Last Admin: 04/15/17 06:06 Dose: 10 mg Lisinopril (Prinivil) 40 mg PO BID [facility] Last Admin: 04/15/17 09:53 Dose: 40 mg Tramadol HCl (Ultram -) 50 mg PO TID [facility] Last Admin: 04/15/17 06:06 Dose: Not Given *Physical Exam Vital Signs Temperature 98.0 F 04/15/17 05:00 Pulse Rate 92 H 04/15/17 05:00 Respiratory Rate 18 04/15/17 05:00 Blood Pressure 117/74 04/15/17 05:00 O2 Sat by Pulse Oximetry (%) 97 04/15/17 05:00 "GENERAL: Awake, alert, and fully oriented, in no acute distress HEAD: No signs of trauma EYES: PERRLA, EOMI, sclera anicteric, conjunctiva clear ENT: Auricles normal inspection, hearing grossly normal, nares patent, oropharynx clear without exudates. Moist mucosa NECK: Nontender, no stepoffs, Normal ROM, supple, no lymphadenopathy, JVD, or masses LUNGS: Breath sounds equal, clear to auscultation bilaterally. No wheezes, and no crackles HEART: Regular rate and rhythm, normal S1 and S2, no murmurs, rubs or gallops ABDOMEN: Soft, nontender, normoactive bowel sounds. No guarding, no rebound. No masses EXTREMITIES: Normal range of motion, no edema. No clubbing or cyanosis. No cords, erythema, or tenderness NEUROLOGICAL: Cranial nerves II through XII intact. 5/5 strength and sensation in all extremities, no slurred speech, finger to nose intact, cane at bedside for ambulation SKIN: Warm, Dry, normal turgor, no rashes or lesions noted. CBCD WBC 5.8 K/mm3 (4.0-10.0) 04/15/17 06:30 RBC 4.69 M/mm3 (3.60-5.2) 04/15/17 06:30 Hgb 14.2 GM/dL (10.7-15.3) 04/15/17 06:30 Hct 40.4 % (32.4-45.2) 04/15/17 06:30 MCV 86.2 fl (80-96) 04/15/17 06:30 MCHC 35.1 g/dl (32.0-36.0) 04/15/17 06:30 RDW 14.1 % (11.6-15.6) 04/15/17 06:30 Plt Count 58 K/MM3 (134-434) L 04/15/17 06:30 MPV 9.9 fl (7.5-11.1) 04/15/17 06:30 CMP Sodium 133 mmol/L (136-145) L 04/15/17 06:30 Potassium 3.6 mmol/L (3.5-5.1) 04/15/17 06:30 Chloride 94 mmol/L (98-107) L 04/15/17 06:30 Carbon Dioxide 29 mmol/L (21-32) 04/15/17 06:30 Anion Gap 10 (8-16) 04/15/17 06:30 BUN 7 mg/dL (7-18) D 04/15/17 06:30 Creatinine 0.7 mg/dL (0.55-1.02) 04/15/17 06:30 Creat Clearance w eGFR > 60 (>60) 04/13/17 13:10 Calcium 8.6 mg/dL (8.5-10.1) 04/15/17 06:30 Total Bilirubin 0.8 mg/dL (0.2-1.0) 04/13/17 13:10 AST 20 U/L (15-37) 04/13/17 13:10 ALT 39 U/L (12-78) D 04/13/17 13:10 Alkaline Phosphatase 76 U/L (45-117) 04/13/17 13:10 Total Protein 6.5 g/dl (6.4-8.2) 04/13/17 13:10 Albumin 3.8 g/dl (3.4-5.0) 04/13/17 13:10 - RADIOLOGY CT head reviewed MRI brain reviewed CD reviewed Echo reviewed Medical Decision Making 86 year old female with a significant PMH of ITP, HTN, hyperlipidemia, CAD, TIA , kidney cysts, and liver cysts who presents to the emergency department with generalized weakness and reported confusion. The patients son reports that the patient has been weak and had poor balance lately. He also notes that the patient has been fatigued and becomes winded with minimal exertion, such as when walking to the bathroom. The patient's son reports that the patient was confused night before admission attempted to use the TV remote as a phone for about 5 minutes before realizing her mistake. Reportedly also witnessed to have word finding difficulties, saying the same things repeatedly. Son did not notice any facial droop or slurred speech at this time. She had returned to her baseline mentation. Pt denies any weakness/numbness/tingling in any extremity, MRI brain ,CD, Echo all within normal limits. She does not take a daily ASA because of low platelet count. Neurologically is asymptomatic. Blood pressure control, maintain <130/90. Continue Statin for hyperlipidemia, maintain LDL < 100. Monitor gait, consider physical therapy as outpatient. Continue using cane , fall precautions. Possibly for discharge today.
[2017-04-15 10:21] VITALS: BP 110/71; PULSE 94; TEMP 97.9
--- NOTE | 2017-04-15 10:24 | DS ---
Physical Examination Vital Signs: Vital Signs Temperature 36.6 C 04/15/17 09:00 Pulse Rate 94 H 04/15/17 09:00 Respiratory Rate 18 04/15/17 09:00 Blood Pressure 110/71 04/15/17 09:00 O2 Sat by Pulse Oximetry (%) 97 04/15/17 05:00 Constitutional: Yes: Well Nourished, No Distress, Calm Cardiovascular: Yes: Regular Rate and Rhythm. No: Gallop, Murmur, Rub Respiratory: Yes: Regular, CTA Bilaterally. No: Rales, Rhonchi, Wheezes Gastrointestinal: Yes: Normal Bowel Sounds, Soft. No: Distention, Tenderness Extremities: Yes: WNL Edema: No Labs: CBC, BMP 04/15/17 06:30 04/15/17 06:30 Discharge Summary Reason For Visit: TRANSIENT CEREBRAL ISCHEMIA Current Active Problems Hypokalemia (Acute) Malignant hypertensive urgency (Acute) TIA (transient ischemic attack) (Acute) Hospital Course: (1) Malignant hypertensive urgency Code(s): I16.0 - HYPERTENSIVE URGENCY (2) TIA (transient ischemic attack) Code(s): G45.9 - TRANSIENT CEREBRAL ISCHEMIC ATTACK, UNSPECIFIED (3) Chronic ITP (idiopathic thrombocytopenic purpura) Code(s): D69.3 - IMMUNE THROMBOCYTOPENIC PURPURA (4) Hyperlipidemia Code(s): E78.5 - HYPERLIPIDEMIA, UNSPECIFIED Qualifiers: Hyperlipidemia type: pure hypercholesterolemia Qualified Code(s): E78.00 - Pure hypercholesterolemia, unspecified (5) Hypertensive cardiovascular disease Code(s): I11.9 - HYPERTENSIVE HEART DISEASE WITHOUT HEART FAILURE Qualifiers: Heart failure presence: without heart failure Qualified Code(s): I11.9 - Hypertensive heart disease without heart failure (6) Hypokalemia Code(s): E87.6 - HYPOKALEMIA (7) Anxiety Code(s): F41.9 - ANXIETY DISORDER, UNSPECIFIED Ms Gutierrez is an 86 year old female who comes in with chronic complaints of dizziness, weakness, and fatigue but was found to have malignant hypertension as an outpatient. She was admitted to telemetry observation and evaluated for possibility of TIA. She was seen by neurology and underwent head MRI, ECHO, and carotid ultrasound. All were negative, head MRI showed only microvascular changes most consistent with hypertension. She was taking amlodipine prn SBP greater than 170 at home, these normally occurred in the am so she was placed on scheduled amlodipine 5mg q 8pm. Her blood pressure was well controlled and at times her SBP was in the 110s. Because of this she will be discharged on amlodipine 2.5mg q 8pm. She can continue her other antihypertensive medications. She was instructed to continue monitoring her blood pressure and if her SBP falls below 110 to call the office. She should follow up with Dr Mooney within 7 days with her blood pressure records. Because diet is strictly controlled here in the hospital at home her medications may need further adjustment and will defer this to Dr Mooney on follow up. She was ordered home PT for chronic unsteadiness and weakness. 31 minutes spent in preparation of this discharge Condition: Stable - Instructions Diet, Activity, Other Instructions: resume previous diet. Walk with cane. Check blood pressures every morning, if top number (systolic) is lower than 110 please call the office for further instructions. Follow up with Dr Mooney within 7 days. Referrals: Epifanio Mooney MD [Primary Care Provider] - Rodríguez Mcknight MD [Staff Physician] - Disposition: VNS/HOME HEALTH CARE - Home Medications Comprehensive Discharge Medication List: Ambulatory Orders Atenolol [Tenormin] 50 mg PO BID 03/30/17 Bupropion HCl [Bupropion Xl] 150 mg PO DAILY 03/30/17 Dexamethasone 40 mg PO MONTHLY 03/30/17 Diazepam 10 mg PO TID 03/30/17 Lisinopril [Zestril] 40 mg PO BID 03/30/17 Lovastatin [Altoprev] 40 mg PO DAILY 03/30/17 Tramadol HCl 50 mg PO TID 03/30/17 Amlodipine Besylate [Norvasc -] 2.5 mg PO DAILY #30 tablet 04/15/17
== END 2017-04-15 11:57 | disposition home health service (06) ==
LOC: JER 11:29 → UNDOADMOB 16:07 → JERBED 16:07 → INTOOBSV 16:07 → JERBED 20:52 → J4W 20:52 → JERBED 04-14 11:10
PROVIDERS: ADMIT Internal Medicine; ATTEND Internal Medicine
DX: I16.0 Hypertensive urgency (principal); G45.9 Transient cerebral ischemic attack, unspecified; D69.3 Immune thrombocytopenic purpura; E78.5 Hyperlipidemia, unspecified; I11.9 Hypertensive heart disease without heart failure; E87.6 Hypokalemia; F41.9 Anxiety disorder, unspecified
CPT/HCPCS: 36415; 70450-TC; 70551-TC; 71020-TC; 80048; 80053; 80061; 81003; 81015; 82550; 83605; 83721; 83735; 83880; 84100; 84443; 84484; 85025; 85610; 85730; 87086; 93005; 93010; 93306-TC; 93880-TC; 97116-GP; 97161-GP; 99284-25; G0378

== ENCOUNTER 2017-08-31 17:46 | Emergency (ER) | payer BC ==
--- NOTE | 2017-08-31 18:05 | PDOC ---
History of Present Illness - General Chief Complaint: Blood Pressure Problem Stated Complaint: HTN, Time Seen by Provider: 08/31/17 17:48 History Source: Patient, Family Exam Limitations: No Limitations - History of Present Illness Initial Comments: 87 yo F history HTN, ITP, HL presents with elevated BP after an argument with her son. As per son, he was talking to her about her poor eating habits. He expresses concern that she only wants to eat saltines and bread, and he tries to cook healthier foods for her with more protein, as she has been losing muscle mass. She states that the argument escalated, and eventually her so told her that if she continues not to eat, he may have to get a nurse in the house to help, or place her in a longterm. She states that she knows he is concerned for her, she just does not feel like eating sometimes. During the argument she got extremely upset, eventually sat on the couch and closed her eyes, was not speaking to her son. She complained of shortness of breath at the time. He checked her blood pressure and she had a systolic of ~200. He became concerned she would have a stroke and called 911. She states she felt better shortly after, and currently has no complaint. Denies cp, SOB, weakness, numbness. Past History - Past Medical History Allergies/Adverse Reactions: Allergies Allergy/AdvReac Type Severity Reaction Status Date / Time penicillin G Allergy Unknown Verified 08/31/17 17:47 carvedilol [From Coreg] Allergy Verified 08/31/17 17:47 ciprofloxacin [From Cipro] Allergy Verified 08/31/17 17:47 ciprofloxacin HCl Allergy Verified 08/31/17 17:47 [From Cipro] metoprolol succinate Allergy Verified 08/31/17 17:47 [From Toprol XL] clindamycin AdvReac Unknown DIARRHEA Verified 08/31/17 17:47 metoprolol AdvReac Unknown Verified 08/31/17 17:47 valsartan [From Diovan] AdvReac Unknown Verified 08/31/17 17:47 ESTRACE CREAM Allergy Uncoded 08/31/17 17:47 BENICAR AdvReac Uncoded 08/31/17 17:47 Home Medications: Ambulatory Orders Atenolol [Tenormin] 50 mg PO BID 03/30/17 Bupropion HCl [Bupropion Xl] 150 mg PO DAILY 03/30/17 Dexamethasone 40 mg PO MONTHLY 03/30/17 Diazepam 10 mg PO TID 03/30/17 Lisinopril [Zestril] 40 mg PO BID 03/30/17 Lovastatin [Altoprev] 40 mg PO DAILY 03/30/17 Tramadol HCl 50 mg PO TID 03/30/17 Amlodipine Besylate [Norvasc -] 2.5 mg PO DAILY #30 tablet 04/15/17 Anemia: (ITP) Asthma: No Cancer: No Cardiac Disorders: Yes (valve leakage, blocked artery) CVA: (TIA) COPD: No CHF: No Dementia: No Diabetes: No GI Disorders: Yes (ibs) Disorders: Yes (Kidney cyst) HTN: Yes Hypercholesterolemia: Yes Liver Disease: Yes (liver cyst) Psychiatric Problems: Yes (ANXIETY.) Seizures: No Thyroid Disease: No - Surgical History 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) Appendectomy: Yes Cardiac Surgery: Yes (Varicose Veins) Cholecystectomy: No Lung Surgery: No Neurologic Surgery: No Orthopedic Surgery: No - Immunization History Immunization Up to Date: Yes - Suicide/Smoking/Psychosocial Hx Smoking Status: No Smoking History: Unknown if ever smoked Have you smoked in the past 12 months: No Number of Cigarettes Smoked Daily: 0 Information on smoking cessation initiated: No Hx Alcohol Use: No Drug/Substance Use Hx: No Substance Use Type: None Hx Substance Use Treatment: No Review of Systems - Review of Systems Able to Perform ROS?: Yes Comments:: GENERAL/CONSTITUTIONAL: No fever or chills. No weakness. HEAD, EYES, EARS, NOSE AND THROAT: No change in vision. No ear pain or discharge. No sore throat. CARDIOVASCULAR: No chest pain or shortness of breath. RESPIRATORY: No cough, wheezing, or hemoptysis. GASTROINTESTINAL: No nausea, vomiting, diarrhea or constipation. GENITOURINARY: No dysuria, frequency, or change in urination. MUSCULOSKELETAL: No joint or muscle swelling or pain. No neck or back pain. SKIN: No rash NEUROLOGIC: No headache, vertigo, loss of consciousness, or change in strength/ sensation. ENDOCRINE: No increased thirst. No abnormal weight change. HEMATOLOGIC/LYMPHATIC: No anemia, easy bleeding, or history of blood clots. ALLERGIC/IMMUNOLOGIC: No hives or skin allergy. *Physical Exam - Vital Signs Last Vital Signs Temp Pulse Resp BP Pulse Ox 98 F 78 18 156/90 98 08/31/17 17:47 08/31/17 17:47 08/31/17 17:47 08/31/17 17:47 08/31/17 17:47 - Physical Exam Comments: GENERAL: Awake, alert, and fully oriented, in no acute distress. Appears thin. HEAD: No signs of trauma EYES: PERRLA, EOMI, sclera anicteric, conjunctiva clear ENT: Auricles normal inspection, hearing grossly normal, nares patent, oropharynx clear without exudates. Moist mucosa NECK: Normal ROM, supple, no lymphadenopathy, JVD, or masses LUNGS: Breath sounds equal, clear to auscultation bilaterally. No wheezes, and no crackles HEART: Regular rate and rhythm, normal S1 and S2, no murmurs, rubs or gallops ABDOMEN: Soft, nontender, normoactive bowel sounds. No guarding, no rebound. No masses EXTREMITIES: Normal range of motion, no edema. No clubbing or cyanosis. No cords, erythema, or tenderness NEUROLOGICAL: Cranial nerves II through XII grossly intact. Normal speech. Motor and sensation intact. Ambulates with cane. SKIN: Warm, Dry, normal turgor, no rashes or lesions noted. Medical Decision Making - Medical Decision Making 08/31/17 18:21 Patient is well appearing, no acute neurologic findings on exam. BP is at her baseline with SBP 150s. Asymptomatic at present. We discussed that arguing in this manner can certainly lead to the extreme elevation in BP, and that they will have to discuss in a calmer manner in the future. We also discussed the importance of proper nutrition for muscle mass maintenance and strength. Stable for DC home. *DC/Admit/Observation/Transfer Diagnosis at time of Disposition: Hypertension Qualifiers: Hypertension type: essential hypertension Qualified Code(s): I10 - Essential ( primary) hypertension - Discharge Dispostion Disposition: HOME Condition at time of disposition: Improved Admit: No - Referrals - Patient Instructions Printed Discharge Instructions: DI for High Blood Pressure - Post Discharge Activity
[2017-08-31 18:18] VITALS: BP 156/90; PULSE 78; TEMP 98; BMI 22.8
== END 2017-08-31 18:51 | disposition home or self-care (01) ==
LOC: FER 17:46
DX: I10 Essential (primary) hypertension (principal); F41.9 Anxiety disorder, unspecified; D69.3 Immune thrombocytopenic purpura; K58.9 Irritable bowel syndrome, unspecified
CPT/HCPCS: 99281-25

== ENCOUNTER 2017-12-26 11:41 | Emergency (ER) | payer BC ==
[2017-12-26 12:14] VITALS: BP 152/82; PULSE 63; TEMP 97.6; BMI 20.2
--- NOTE | 2017-12-26 13:04 | PDOC ---
History of Present Illness - History of Present Illness Initial Comments: Patient is an 87 year old female with PMHx of HTN, ITP, HLD, anxiety, who presents with 1 week of worsened constipation and abdominal pain. She states that for intermittently for the past 1.5 years she has experienced issues with constipation. She states that she has been taking laxatives for her constipation and then her stools become very loose. She also notes a burning sensation after using the bathroom as well as bright red blood per rectum yesterday. She has an appointment with Dr. Pritchett today with to test her platelets. Surgical Hx: No recent surgeries. <Marilia Merida - Last Filed: 12/26/17 15:42> - General History Source: Patient Exam Limitations: No Limitations <Pavithra Jimenez - Last Filed: 12/28/17 11:07> - General Chief Complaint: Pain, Acute Stated Complaint: ABD PAIN Time Seen by Provider: 12/26/17 11:48 Past History <Marilia Merida - Last Filed: 12/26/17 15:42> - Past Medical History Anemia: (ITP) Asthma: No Cancer: No Cardiac Disorders: Yes (valve leakage, blocked artery) CVA: (TIA) COPD: No CHF: No Dementia: No Diabetes: No GI Disorders: Yes (ibs) Disorders: Yes (Kidney cyst) HTN: Yes Hypercholesterolemia: Yes Liver Disease: Yes (liver cyst) Psychiatric Problems: Yes (ANXIETY.) Seizures: No Thyroid Disease: No - Surgical History 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) Appendectomy: Yes Cardiac Surgery: Yes (Varicose Veins) Cholecystectomy: No Lung Surgery: No Neurologic Surgery: No Orthopedic Surgery: No - Immunization History Immunization Up to Date: Yes - Suicide/Smoking/Psychosocial Hx Smoking Status: No Smoking History: Former smoker Have you smoked in the past 12 months: No Number of Cigarettes Smoked Daily: 0 If you are a former smoker, when did you quit?: 50+ years ago Information on smoking cessation initiated: No Hx Alcohol Use: No Drug/Substance Use Hx: No Substance Use Type: None Hx Substance Use Treatment: No <Pavithra Jimenez - Last Filed: 12/28/17 11:07> - Past Medical History Allergies/Adverse Reactions: Allergies Allergy/AdvReac Type Severity Reaction Status Date / Time penicillin G Allergy Unknown Verified 12/26/17 12:14 carvedilol [From Coreg] Allergy Verified 12/26/17 12:14 ciprofloxacin [From Cipro] Allergy Verified 12/26/17 12:14 ciprofloxacin HCl Allergy Verified 12/26/17 12:14 [From Cipro] metoprolol succinate Allergy Verified 12/26/17 12:14 [From Toprol XL] clindamycin AdvReac Unknown DIARRHEA Verified 12/26/17 12:14 metoprolol AdvReac Unknown Verified 12/26/17 12:14 valsartan [From Diovan] AdvReac Unknown Verified 12/26/17 12:14 ESTRACE CREAM Allergy Uncoded 08/31/17 17:47 BENICAR AdvReac Uncoded 08/31/17 17:47 Home Medications: Ambulatory Orders Atenolol [Tenormin] 50 mg PO BID 03/30/17 Bupropion HCl [Bupropion Xl] 150 mg PO DAILY 03/30/17 Dexamethasone 40 mg PO MONTHLY 03/30/17 Diazepam 10 mg PO TID 03/30/17 Lisinopril [Zestril] 40 mg PO BID 03/30/17 Lovastatin [Altoprev] 40 mg PO DAILY 03/30/17 Tramadol HCl 50 mg PO TID 03/30/17 Amlodipine Besylate [Norvasc -] 2.5 mg PO DAILY #30 tablet 04/15/17 Docusate Sodium [Colace -] 100 mg PO DAILY #30 capsule 12/26/17 Polyethylene Glycol 3350 [Miralax (For Daily Use) -] 17 gm PO DAILY PRN #1 bottle 12/26/17 Review of Systems - Review of Systems Comments:: GENERAL/CONSTITUTIONAL: No: fever, chills, weakness, loss of appetite. HEAD, EYES, EARS, NOSE AND THROAT: No: change in vision, ear pain, discharge, sore throat, throat swelling. CARDIOVASCULAR: No: chest pain, lightheadedness, palpitations, syncope RESPIRATORY: No: cough, shortness of breath, wheezing, hemoptysis, stridor. GASTROINTESTINAL: No: nausea, vomiting, abdominal cramping, diarrhea, rectal bleeding, constipation. GENITOURINARY: No: dysuria, hematuria, frequency, urgency, flank pain. MUSCULOSKELETAL: No: back pain, neck pain, joint pain, muscle swelling or pain SKIN: No: lesions, pallor, rash or easy bruising. NEUROLOGIC: No: headache, vertigo, paresthesias, weakness ENDOCRINE: No: unexplained weight gain or loss HEMATOLOGIC/LYMPHATIC: No: anemia, easy bleeding, swelling nodes <Marilia Merida - Last Filed: 12/26/17 15:42> *Physical Exam - Vital Signs Last Vital Signs Temp Pulse Resp BP Pulse Ox 97.6 F 63 16 152/82 97 12/26/17 11:57 12/26/17 11:57 12/26/17 11:57 12/26/17 11:57 12/26/17 11:57 - Physical Exam Comments: GENERAL: The patient is in no acute distress. HEAD: Normal with no signs of trauma. EYES: PERRLA, EOMI, sclera anicteric, conjunctiva clear. LUNGS: Breath sounds equal, clear to auscultation bilaterally. No wheezes, and no crackles. HEART:Regular rate and rhythm, normal S1 and S2 without murmur, rub or gallop. ABDOMEN: Soft, lower abdominal tenderness, normoactive bowel sounds. Voluntary guarding, no rebound. EXTREMITIES: Normal range of motion, no edema. No clubbing or cyanosis. No erythema, or tenderness. NEUROLOGICAL: Cranial nerves II through XII grossly intact. Normal speech. No focal neurological deficits. MUSCULOSKELETAL: Back nontender to palpation, no CVA tenderness SKIN: Warm, Dry, normal turgor, no rashes or lesions noted. Rectal Exam: Soft stool in the rectal vault. No external hemorrhoids. <Marilia Merida - Last Filed: 12/26/17 15:42> - Vital Signs Last Vital Signs Temp Pulse Resp BP Pulse Ox 97.6 F 63 16 152/82 97 12/26/17 11:57 12/26/17 11:57 12/26/17 11:57 12/26/17 11:57 12/26/17 11:57 <Pavithra Jimenez - Last Filed: 12/28/17 11:07> ED Treatment Course - LABORATORY CBC & Chemistry Diagram: 12/26/17 13:47 12/26/17 13:47 - ADDITIONAL ORDERS Additional order review: Laboratory Results 12/26/17 13:10 Stool Occult Blood Negative <Marilia Merida - Last Filed: 12/26/17 15:42> - LABORATORY CBC & Chemistry Diagram: 12/26/17 13:47 12/26/17 13:47 <Pavithra Jimenez - Last Filed: 12/28/17 11:07> Medical Decision Making - Medical Decision Making 12/26/17 15:36 This is an 87-year-old female with a history of anxiety, history of constipation who presents emergency department with a complaint of abdominal pain and no bowel movement. Patient states that she has not had a bowel movement in approximately 5 days. Initially the pain was bearable but now it is severe and unbearable. No fever, no chills. No nausea, no vomiting. She is unable to recall when her last colonoscopy was, cannot tell me what the findings were. She also states she has difficulty urinating. On examination: Regular rate and rhythm Clear to auscultation bilaterally Patient has lower abdominal tenderness to palpation both in the right and left lower quadrant. She has voluntary guarding, no rebound. Rectal examination reveals no external hemorrhoids, stool noted in the rectal vault, unable to fully disimpact. DD: Diverticulitis, Appendicitis, SBO, constipation, colitis Will do: Labs CT IVF Re assess Pt requested her valium 10mg This is what she takes three times per day since the 70s We have verified the dose with her pharmacy 12/26/17 15:40 Laboratory Tests 01/11/15 12/26/17 12/26/17 15:23 13:10 13:47 WBC 4.6 5.5 Hgb 13.6 14.7 Hct 40.8 41.5 Plt Count 78 L D INR Sodium Potassium Chloride Carbon Dioxide BUN Creatinine Random Glucose Stool Occult Blood Negative 12/26/17 12/26/17 13:47 13:47 WBC Hgb Hct Plt Count INR 1.00 Sodium 131 L Potassium 3.7 Chloride 93 L Carbon Dioxide 30 BUN 12 Creatinine 0.7 Random Glucose 78 Stool Occult Blood Pt signed out to Dr Guzmán CT read is pending Pt can possibly be given an enema to help her have a bowel movement Clinical impression: constipation, initial presentation Abdominal pain, initial presentation <Pavithra Jimenez - Last Filed: 12/28/17 11:07> *DC/Admit/Observation/Transfer - Attestations Scribe Attestion: 12/26/17 15:44 Documentation prepared by Marilia Merida, acting as medical insurance collector for Pavithra Jimenez MD. <Marilia Merida Last Filed: 12/26/17 15:42> <Pavithra Jimenez - Last Filed: 12/28/17 11:07> Diagnosis at time of Disposition: Constipation - Discharge Dispostion Disposition: HOME Condition at time of disposition: Stable - Prescriptions Prescriptions: Docusate Sodium [Colace -] 100 mg PO DAILY #30 capsule Polyethylene Glycol 3350 [Miralax (For Daily Use) -] 17 gm PO DAILY PRN #1 bottle PRN Reason: Constipation - Referrals Referrals: Epifanio Mooney MD [Primary Care Provider] - - Patient Instructions Printed Discharge Instructions: DI for Constipation Additional Instructions: please followup with Dr Mooney this week - Post Discharge Activity
[2017-12-26] MEDS ORDERED: ACETAMINOPHEN 1000 MG/100 ML VIAL (NON FORMULARY) IVPB ONE (13:05)
[2017-12-26] MEDS ORDERED: SODIUM CHLORIDE 1,000 ML IV SCH (13:15)
[2017-12-26] MEDS ORDERED: DICYCLOMINE HCL 10 MG CAPSULE PO ONE (13:27)
[2017-12-26] MEDS ORDERED: ACETAMINOPHEN INJECTION 100 ML IVPB ONE (13:50)
[2017-12-26 14:06] LABS: PROTHROMBIN TIME (PATIENT) 11.3 SEC (9.7-13.0)
[2017-12-26] MEDS ORDERED: DICYCLOMINE HCL 10 MG CAPSULE ONE (14:06)
[2017-12-26 14:07] LABS: BASO % 1.3 % (0-2.0); EOS % 5.3 % (0-4.5); HEMATOCRIT 41.5 % (32.4-45.2); HEMOGLOBIN 14.7 GM/dL (10.7-15.3); LYMPH % 18.8 % (8-40); MCH 31.2 pg (25.7-33.7); MCHC 35.5 g/dl (32.0-36.0); MEAN CELL VOLUME 87.8 fl (80-96); MEAN PLT VOLUME 10.8 fl (7.5-11.1); MONO % 10.6 % (3.8-10.2); PLATELET COUNT 78 K/MM3 (134-434); RBC 4.73 M/mm3 (3.60-5.2); RDW 13.8 % (11.6-15.6); WHITE BLOOD COUNT 5.5 K/mm3 (4.0-10.0)
[2017-12-26 14:16] LABS: ALBUMIN 4.1 g/dl (3.4-5.0); ANION GAP 8 MMOL/L (8-16); BILIRUBIN,TOTAL 1.1 mg/dL (0.2-1.0); BLOOD UREA NITROGEN 12 mg/dL (7-18); CHLORIDE 93 mmol/L (98-107); CO2 30 mmol/L (21-32); CREATININE 0.7 mg/dL (0.55-1.02); GLUCOSE,RANDOM 78 mg/dL (74-106); POTASSIUM 3.7 mmol/L (3.5-5.1); SGOT/AST 32 U/L (15-37); SGPT/ALT 31 U/L (12-78); SODIUM 131 mmol/L (136-145); TOT PROT 6.7 g/dl (6.4-8.2)
[2017-12-26 14:17] LABS: ALK PHOS 109 U/L (45-117)
[2017-12-26] MEDS ORDERED: diazePAM 2 MG TABLET PO ONE ×3 (14:46→16:40)
[2017-12-26] MEDS ORDERED: diazePAM 5 MG TABLET ONE ×2 (14:54→15:03)
[2017-12-26 16:37] LABS: URINE APPEARANCE CLEAR; URINE BILIRUBIN NEGATIVE (<2.0 mg/dL); URINE COLOR STRAW; URINE GLUCOSE (UA) NEGATIVE (NEGATIVE); URINE KETONE 1+ (NEGATIVE); URINE NITRITE NEGATIVE (NEGATIVE); URINE PROTEIN NEGATIVE (NEGATIVE); URINE UROBILINOGEN NEGATIVE mg/dL (0.2-1.0)
[2017-12-26 16:46] LABS: URINE LEUK ESTERASE 1+ (NEGATIVE)
[2017-12-26 16:49] LABS: URINE BACTERIA RARE /hpf (NONE SEEN)
--- NOTE | 2017-12-26 19:23 | PDOC ---
*Physical Exam - Vital Signs Last Vital Signs Temp Pulse Resp BP Pulse Ox 97.6 F 63 16 152/82 97 12/26/17 11:57 12/26/17 11:57 12/26/17 11:57 12/26/17 11:57 12/26/17 11:57 ED Treatment Course - LABORATORY CBC & Chemistry Diagram: 12/26/17 13:47 12/26/17 13:47 - ADDITIONAL ORDERS Additional order review: Laboratory Results 12/26/17 12/26/17 12/26/17 15:47 14:32 13:47 PT with INR INR Sodium Potassium Chloride Carbon Dioxide Anion Gap BUN Creatinine Creat Clearance w eGFR Random Glucose Lactic Acid 1.1 Calcium Total Bilirubin AST ALT Alkaline Phosphatase Total Protein Albumin Urine Color Straw Urine Appearance Clear Urine pH 6.0 Ur Specific Benedict 1.004 Urine Protein Negative Urine Glucose (UA) Negative Urine Ketones 1+ H Urine Blood 1+ H Urine Nitrite Negative Urine Bilirubin Negative Urine Urobilinogen Negative Ur Leukocyte Esterase 1+ H D Urine WBC (Auto) 4 Urine RBC (Auto) 1 Urine Bacteria Rare Stool Occult Blood Blood Type B POSITIVE Antibody Screen Negative 12/26/17 12/26/17 12/26/17 13:47 13:47 13:10 PT with INR 11.30 INR 1.00 Sodium 131 L Potassium 3.7 Chloride 93 L Carbon Dioxide 30 Anion Gap 8 BUN 12 Creatinine 0.7 Creat Clearance w eGFR > 60 Random Glucose 78 Lactic Acid Calcium 9.0 Total Bilirubin 1.1 H AST 32 ALT 31 Alkaline Phosphatase 109 Total Protein 6.7 Albumin 4.1 Urine Color Urine Appearance Urine pH Ur Specific Benedict Urine Protein Urine Glucose (UA) Urine Ketones Urine Blood Urine Nitrite Urine Bilirubin Urine Urobilinogen Ur Leukocyte Esterase Urine WBC (Auto) Urine RBC (Auto) Urine Bacteria Stool Occult Blood Negative Blood Type Antibody Screen 12/26/17 13:47 RBC 4.73 MCV 87.8 MCHC 35.5 RDW 13.8 MPV 10.8 Neutrophils % 64.0 Lymphocytes % 18.8 D Monocytes % 10.6 H Eosinophils % 5.3 H D Basophils % 1.3 D - Medications Given in the ED: ED Medications Discontinued Medications Generic Name Dose Route Start Last Admin Trade Name Freq PRN Reason Stop Dose Admin Acetaminophen 1,000 mg 12/26/17 13:05 12/26/17 14:00 Ofirmev Injection - IVPB 12/26/17 13:06 1,000 mg ONCE ONE Administration Diazepam 10 mg 12/26/17 14:46 12/26/17 14:59 Valium - PO 12/26/17 14:47 Not Given ONCE ONE Diazepam 5 mg 12/26/17 14:54 12/26/17 14:40 Valium - PO 12/26/17 14:55 5 mg ONCE ONE Administration Diazepam 5 mg 12/26/17 16:40 12/26/17 14:40 Valium - PO 12/26/17 16:41 5 mg ONCE ONE Administration Dicyclomine HCl 10 mg 12/26/17 13:27 12/26/17 14:15 Bentyl - PO 12/26/17 13:28 10 mg ONCE ONE Administration Medical Decision Making - Medical Decision Making 12/26/17 19:19 -pt denies any abd pain at this time,just keeps stating she has not has a BM in several days but then again she had not eatenn for [address] SCAN OF ABD/PEL WITH CONTRAST DID NOT SHOW ANY ACUTE PATHOLOGY -SPOKE AT LENGTH WITH SON AND DAUGHTER AND THEY ARE CONCERNED THAT SHE ROUTINELY STATES EATING WHEN SHE DEV LOOSE STOOLS AFTER USING HER milk of magnesia -recommended she try eating regular meals , a stool softener --because of ehr chronic low plat count,[place] does not want her using an enema *DC/Admit/Observation/Transfer Diagnosis at time of Disposition: Constipation Qualifiers: Constipation type: other constipation type Qualified Code(s): K59.09 - Other constipation - Discharge Dispostion Disposition: HOME Condition at time of disposition: Stable - Prescriptions Prescriptions: Docusate Sodium [Colace -] 100 mg PO DAILY #30 capsule Polyethylene Glycol 3350 [Miralax (For Daily Use) -] 17 gm PO DAILY PRN #1 bottle PRN Reason: Constipation - Referrals Referrals: Epifanio Mooney MD [Primary Care Provider] - - Patient Instructions Printed Discharge Instructions: DI for Constipation Additional Instructions: please followup with Dr Mooney this week - Post Discharge Activity
== END 2017-12-26 19:50 | disposition home or self-care (01) ==
LOC: JER 11:41 → SUPCPDRO 11:41 → JER 19:50
PROC: 3E0337Z Introduction of Electrolytic and Water Balance Substance into Peripheral Vein, Percutaneous Approach (ICD-10-PCS; principal; 2017-12-26)
PROC: 3E033NZ Introduction of Analgesics, Hypnotics, Sedatives into Peripheral Vein, Percutaneous Approach (ICD-10-PCS; 2017-12-26)
DX: K59.09 Other constipation (principal); D69.3 Immune thrombocytopenic purpura; F41.9 Anxiety disorder, unspecified; E78.00 Pure hypercholesterolemia, unspecified; Z86.73 Personal history of transient ischemic attack (TIA), and cerebral infarction without residual deficits; Z88.8 Allergy status to other drugs, medicaments and biological substances
CPT/HCPCS: 36415; 74177-TC; 80053; 81003; 81015; 82272; 83605; 85025; 85610; 86850; 86900; 86901; 87086; 96361; 96374; 99282-25; J0131; J7030

== ENCOUNTER 2018-05-11 12:43 | Observation (INO) | payer BC ==
[2018-05-11 13:03] VITALS: BMI 20.1
--- NOTE | 2018-05-11 13:59 | PDOC ---
History of Present Illness - General Chief Complaint: Revisit, Lab Variance Stated Complaint: PCP SENT Time Seen by Provider: 05/11/18 13:51 History Source: Patient Exam Limitations: No Limitations - History of Present Illness Initial Comments: Marga is an 87 yo F w a PMHx of HTN, ITP, HLD, anxiety, who presents to the ED because she was told by her PCP that her Platelet count was 18. She had routine labs performed at [facility] on Tuesday. Today her PCP saw the results, called her up and told her to come to the ED to be evaluated. She feels well and has no complaints other than chronic back pain which she states has not changed in character anytime in the past 3 months. She has required multiple platelet transfusions in the past. She denies any chest pain, SOB, difficulty breathing, headache, neck pain, blurry vision, trauma of any sort, nausea, vomiting, recent fevers, chills, infections, weakness, numbness, tingling, dysuria, frequency, urgency. PCP: Epifanio Mooney Locomotive Observer: Dr. 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 Social Hx: No alcohol, tobacco or drug use reported Allergies: Penicillin, metoprolol, coreg, clindamycin, Diovan, BENICAR Past History - Past Medical History Allergies/Adverse Reactions: Allergies Allergy/AdvReac Type Severity Reaction Status Date / Time penicillin G Allergy Unknown Verified 05/11/18 13:01 carvedilol [From Coreg] Allergy Verified 05/11/18 13:01 ciprofloxacin [From Cipro] Allergy Verified 05/11/18 13:01 ciprofloxacin HCl Allergy Verified 05/11/18 13:01 [From Cipro] metoprolol succinate Allergy Verified 05/11/18 13:01 [From Toprol XL] clindamycin AdvReac Unknown DIARRHEA Verified 05/11/18 13:01 metoprolol AdvReac Unknown Verified 05/11/18 13:01 valsartan [From Diovan] AdvReac Unknown Verified 05/11/18 13:01 ESTRACE CREAM Allergy Uncoded 05/11/18 13:01 BENICAR AdvReac Uncoded 05/11/18 13:01 Home Medications: Ambulatory Orders Amlodipine Besylate 2.5 mg PO DAILY 05/11/18 Atenolol [Tenormin] 50 mg PO BID 05/11/18 Bupropion HCl [Bupropion Xl] 150 mg PO DAILY 05/11/18 Diazepam [Valium] 5 mg PO TID 05/11/18 Lisinopril [Prinivil -] 40 mg PO BID 05/11/18 Lovastatin 40 mg PO DAILY 05/11/18 Anemia: (ITP) Asthma: No Cancer: No Cardiac Disorders: Yes (valve leakage, blocked artery) CVA: (TIA) COPD: No CHF: No Dementia: No Diabetes: No GI Disorders: Yes (ibs) Disorders: Yes (Kidney cyst) HTN: Yes Hypercholesterolemia: Yes Liver Disease: Yes (liver cyst) Psychiatric Problems: Yes (ANXIETY.) Seizures: No Thyroid Disease: No - Surgical History 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) Appendectomy: Yes Cardiac Surgery: Yes (Varicose Veins) Cholecystectomy: No Lung Surgery: No Neurologic Surgery: No Orthopedic Surgery: No - Immunization History Immunization Up to Date: Yes - Suicide/Smoking/Psychosocial Hx Smoking Status: No Smoking History: Never smoked Have you smoked in the past 12 months: No Number of Cigarettes Smoked Daily: 0 If you are a former smoker, when did you quit?: 50+ years ago Hx Alcohol Use: No Drug/Substance Use Hx: No Substance Use Type: None Hx Substance Use Treatment: No Review of Systems - Review of Systems Able to Perform ROS?: Yes Comments:: CONSTITUTIONAL: Absent: fever, no chills, no fatigue EYES: Absent: visual changes ENT: Absent: ear pain, no sore throat CARDIOVASCULAR: Absent: chest pain, no palpitations RESPIRATORY: Absent: cough, no SOB GI: Absent: abdominal pain, no nausea, no vomiting, no constipation, no diarrhea GENITOURINARY: Absent: dysuria, no frequency, no hematuria MUSKULOSKELETAL: Absent: back pain, no arthralgia, no myalgia SKIN: Absent: rash NEURO: Absent: headache *Physical Exam - Vital Signs Last Vital Signs Temp Pulse Resp BP Pulse Ox 97.6 F 69 16 136/75 99 05/11/18 13:01 05/11/18 13:01 05/11/18 13:01 05/11/18 13:05/11/18 13:01 - Physical Exam Comments: GENERAL: Well-appearing, well-nourished. No apparent distress. HEENT: Normocephalic, atraumatic. PERRL, EOM intact. CARDIOVASCULAR: Normal S1, S2. Regular rate and rhythm. PULMONARY: Clear to auscultation bilaterally. ABDOMEN: Soft, non-distended, non-tender. EXTREMITIES: Normal ROM in all four extremities. No gross deformities. SKIN: Warm, dry. No rash NEUROLOGICAL: No focal neurological deficits. Moderate Sedation - Procedure Monitoring Vital Signs: Procedure Monitoring Vital Signs Temperature 97.6 F 05/11/18 13:01 Pulse Rate 69 05/11/18 13:01 Respiratory Rate 16 05/11/18 13:01 Blood Pressure 136/75 05/11/18 13:01 O2 Sat by Pulse Oximetry (%) 99 05/11/18 13:01 ED Treatment Course - LABORATORY CBC & Chemistry Diagram: 05/11/18 14:30 05/11/18 14:30 Medical Decision Making - Medical Decision Making Marga is an 87 yo F w a PMHx of HTN, ITP, HLD, anxiety, who presents to the ED because she was told by her PCP that her Platelet count was 18. DDx IBNLT: Thrombocytopenia, ITP, aplastic anemia, aplastic crisis, parvovirus, Gautam soulier syndrome Plan: Labs, IV hydration, Heme consult, re-assess. Spoke w Dr. Pritchett - Dr. Pritchett says she occasionally responds to steroids - ask last time she took decadron [address] to protect stomach - she doesn't usually respond to platelets. possibly give [address] Pritchett reccommends for patient to be admitted to observe platelet count increase. Here in ED her platelets are 28. - Will give 40 of Decadron and admit patient to Obs - Also giving 1 unit of platelets, 5 mg of Norvasc, and 650 tylenol. *DC/Admit/Observation/Transfer Diagnosis at time of Disposition: Thrombocytopenia - Discharge Dispostion Decision to Admit order: Yes - Referrals - Patient Instructions - Post Discharge Activity
[2018-05-11] MEDS ORDERED: SODIUM CHLORIDE 0.9% 500 ML INFUS.BAG IV ONE (14:30)
[2018-05-11 14:39] LABS: BASO % 2.6 % (0-2.0); EOS % 3.5 % (0-4.5); HEMATOCRIT 41.6 % (32.4-45.2); LYMPH % 24.6 % (8-40); MCH 31.8 pg (25.7-33.7); MCHC 36.1 g/dl (32.0-36.0); MONO % 8.9 % (3.8-10.2); NEUT % 60.4 % (42.8-82.8); RBC 4.73 M/mm3 (3.60-5.2); RDW 13.6 % (11.6-15.6); WHITE BLOOD COUNT 5.3 K/mm3 (4.0-10.0)
[2018-05-11 15:01] LABS: ALBUMIN 4.1 g/dl (3.4-5.0); ALK PHOS 82 U/L (45-117); ANION GAP 6 MMOL/L (8-16); BILIRUBIN,TOTAL 0.7 mg/dL (0.2-1); BLOOD UREA NITROGEN 11 mg/dL (7-18); CHLORIDE 101 mmol/L (98-107); CO2 31 mmol/L (21-32); CREATININE 0.7 mg/dL (0.55-1.3); GLUCOSE,RANDOM 80 mg/dL (74-106); POTASSIUM 3.8 mmol/L (3.5-5.1); SGOT/AST 30 U/L (15-37); SGPT/ALT 20 U/L (13-61); SODIUM 138 mmol/L (136-145); TOT PROT 6.6 g/dl (6.4-8.2)
--- NOTE | 2018-05-11 15:24 | PDOC ---
Attending Attestation - Resident Resident Name: Dariel Wells - ED Attending Attestation I have performed the following: I have examined & evaluated the patient, The case was reviewed & discussed with the resident, I agree w/resident's findings & plan, Exceptions are as noted - Physicial Exam PE: 05/11/18 15:23 awake alert lungs clear bilaterallly heart rrr no mrg abd soft nt ns. ext wwp. skin with few purpura. bruises to arms. nuero alert oriented x 3. - Medical Decision Making 05/11/18 15:21 87 yo F h/o ITH HTN HLD anxiety here with told platelets of 18. pt is not currently on any steroids. has had platelet transfusions in the past. does report bruising. no bleeding. no melena. no complaints. no recent viral or other infectious sxs. no n/v no urinary sxs no cough no nasal congesteion no fevers. no cp no sob. <Marianna Chanel - Last Filed: 05/11/18 15:20> - HPI HPI: 05/11/18 15:27 Patient is an 87 year old female with a significant past medical history of HTN , ITP, HLD, anxiety, who presents to the ED after being advised by PCP to come into the ED for low platelet count. Patient reports getting lab work done Tuesday afternoon and was called today and made aware that her blood platelet count was low and should come into the ED for further evaluation and possible transfusion. Denies chest pain, sob. Denies nausea, vomiting. Denies fevers, chills. Denies dysuria, hematuria. Denies constipation, Allergies: penicillin carvedilol, Ciprofloxacin, ciprofloxacin HCl, metoprolol succinate,Clindamycin, metoprolol, Valsartan, Social history: No smoking. No alcohol. No illicit drugs. Surgical history: Hysterectomy PMD: Dr. Epifanio Mooney <Andreas Sam - Last Filed: 05/11/18 15:27>
[2018-05-11 15:26] LABS: PLATELET COUNT 28 K/MM3 (134-434)
[2018-05-11] MEDS ORDERED: DEXAMETHASONE SOD PHOSPHATE 20 MG/5 ML VIAL IVPB ONE (15:41)
[2018-05-11] MEDS ORDERED: amLODIPine BESYLATE 5 MG TABLET (FP) PO ONE (16:01)
[2018-05-11] MEDS ORDERED: ACETAMINOPHEN 325 MG TABLET (FP) PO ONE (16:01)
[2018-05-11] MEDS ORDERED: DEXAMETHASONE SOD PHOSPHATE 10 MG/1 ML VIAL ONE (16:06)
[2018-05-11] MEDS ORDERED: ACETAMINOPHEN 325 MG TABLET (FP) ONE (16:16)
[2018-05-11] MEDS ORDERED: amLODIPine BESYLATE 5 MG TABLET (FP) ONE (16:16)
--- NOTE | 2018-05-11 16:24 | HP ---
Admitting History and Physical - Primary Care Physician PCP: Epifanio Mooney - Admission Chief Complaint: ITP History of Present Illness: 87 year old female pmh significant for ITP sent over by PCP for low plts. Pt had routine labs done on , pt was told by PCP today that her plts were 18k and advised to come to ED. Pt reports noticing more bruises on body recently, otherwise denies noticing blood in stool/urine. Pt not compliant with oral steroids outpt. Pt denies any chest pain, sob, lightheadedness, dizziness, n/v/d , fever/chills, hematuria, recent fall. History Source: Patient, Family Member Limitations to Obtaining History: No Limitations - Past Medical History Cardiovascular: Yes: CAD (patient states that they cannot do anything about it due to her thrombocytopenia), HTN, Hyperlipdemia, Other (valve disease, patient says that she has something wrong with her valve but cannot remember the name) Heme/Onc: Yes: Other (ITP) Psych: Yes: Anxiety - Past Surgical History Past Surgical History: Yes: Hysterectomy - Smoking History Smoking history: Never smoked Have you smoked in the past 12 months: No Aproximately how many cigarettes per day: 0 - Alcohol/Substance Use Hx Alcohol Use: No History of Substance Use: reports: None - Social History ADL: Family Assistance History of Recent Travel: No Home Medications - Allergies Allergies/Adverse Reactions: Allergies Allergy/AdvReac Type Severity Reaction Status Date / Time penicillin G Allergy Unknown Verified 05/11/18 13:01 carvedilol [From Coreg] Allergy Verified 05/11/18 13:01 ciprofloxacin [From Cipro] Allergy Verified 05/11/18 13:01 ciprofloxacin HCl Allergy Verified 05/11/18 13:01 [From Cipro] metoprolol succinate Allergy Verified 05/11/18 13:01 [From Toprol XL] clindamycin AdvReac Unknown DIARRHEA Verified 05/11/18 13:01 metoprolol AdvReac Unknown Verified 05/11/18 13:01 valsartan [From Diovan] AdvReac Unknown Verified 05/11/18 13:01 ESTRACE CREAM Allergy Uncoded 05/11/18 13:01 BENICAR AdvReac Uncoded 05/11/18 13:01 - Home Medications Home Medications: Ambulatory Orders Amlodipine Besylate 2.5 mg PO DAILY PRN 05/11/18 Atenolol [Tenormin] 50 mg PO BID 05/11/18 Bupropion HCl [Bupropion Xl] 150 mg PO DAILY 05/11/18 Diazepam 3 mg PO TID 05/11/18 Lisinopril [Prinivil -] 40 mg PO BID 05/11/18 Lovastatin 40 mg PO DAILY 05/11/18 Family Disease History - Family Disease History Family Disease History: Heart Disease: Mother, Brother Review of Systems Findings/Remarks: as per hpi Physical Examination Vital Signs: Vital Signs Temperature 97.6 F 05/11/18 16:01 Pulse Rate 73 05/11/18 16:01 Respiratory Rate 16 05/11/18 16:01 Blood Pressure 170/83 05/11/18 16:01 O2 Sat by Pulse Oximetry (%) 96 05/11/18 16:01 Constitutional: Yes: No Distress, Thin Cardiovascular: Yes: WNL, Regular Rate and Rhythm. No: Bradycardia, Murmur Respiratory: Yes: WNL, Regular, CTA Bilaterally. No: Accessory Muscle Use, SOB , Tachypnea, Wheezes Gastrointestinal: Yes: WNL, Normal Bowel Sounds, Soft. No: Distention, Tenderness Renal/: Yes: WNL Extremities: Yes: WNL Edema: No Neurological: Yes: WNL, Alert, Oriented Psychiatric: Yes: WNL, Alert, Oriented Labs: CBC, BMP 05/11/18 14:30 05/11/18 14:30 Problem List - Problems (1) Thrombocytopenia Assessment/Plan: 2/2 ITP plts 18k no signs of bleeding decadron x 1 hematology consulted Code(s): D69.6 - THROMBOCYTOPENIA, UNSPECIFIED (2) Chronic ITP (idiopathic thrombocytopenic purpura) Assessment/Plan: as above Code(s): D69.3 - IMMUNE THROMBOCYTOPENIC PURPURA (3) Anxiety Assessment/Plan: controlled continue home regimen Code(s): F41.9 - ANXIETY DISORDER, UNSPECIFIED (4) Hyperlipidemia Assessment/Plan: stable continue statin Code(s): E78.5 - HYPERLIPIDEMIA, UNSPECIFIED Qualifiers: Hyperlipidemia type: pure hypercholesterolemia Qualified Code(s): E78.00 - Pure hypercholesterolemia, unspecified (5) Hypertension Assessment/Plan: controlled, slight elevation continue home regimen Code(s): I10 - ESSENTIAL (PRIMARY) HYPERTENSION Qualifiers: Hypertension type: essential hypertension Qualified Code(s): I10 - Essential (primary) hypertension
[2018-05-11] MEDS ORDERED: amLODIPine BESYLATE 2.5 MG TABLET (FP) PO PRN (17:12)
[2018-05-11] MEDS ORDERED: ACETAMINOPHEN 325 MG TABLET (FP) PO PRN ×2 (17:12→20:55)
--- NOTE | 2018-05-11 17:43 | CONSULT ---
Consult Consult Specialty:: Hematology-Oncology Referred by:: Pacheco Reason for Consultation:: ITP - History of Present Illness Chief Complaint: thrombocytopenia History of Present Illness: 87 yr old woman with hx of ITP, coronary disease, TIA, kidney cysts, and liver cysts, intermittent vaginal bleeding, HTN, HLD referred for platelet count of 18 on outpatient labs. repeat platelet count in ED 18. denies bruising, bleeding, hematochezia, fevers, chills, n/v. currently c/o frontal headache that started shortly before being given IVF and decadron in the ED. It encompasses the crown of her head, continuous, aching type pain, has had similar type pain in the past. was given tylenol in the ED. denies photophobia, nausea, dizziness, lightheadedness has not eaten a full meal since entering the ED this morning, except for a granola bar and protein drink sometime in the afternoon. Was given decadron 40mg IVP in the ED - Past Medical History Cardio/Vascular: Yes: CAD (patient states that they cannot do anything about it due to her thrombocytopenia), HTN, Hyperlipdemia, Other (valve disease, patient says that she has something wrong with her valve but cannot remember the name) Psych: Yes: Anxiety - Past Surgical History Past Surgical History: Yes: Hysterectomy - Alcohol/Substance Use Hx Alcohol Use: No History of Substance Use: reports: None - Smoking History Smoking history: Never smoked Have you smoked in the past 12 months: No Aproximately how many cigarettes per day: 0 If you are a former smoker, when did you quit?: 50+ years ago - Social History ADL: Family Assistance History of Recent Travel: No Home Medications - Allergies Allergies/Adverse Reactions: Allergies Allergy/AdvReac Type Severity Reaction Status Date / Time aspirin Allergy Unknown Verified 05/11/18 20:22 carvedilol [From Coreg] Allergy Unknown Verified 05/11/18 20:17 ciprofloxacin [From Cipro] Allergy Unknown Verified 05/11/18 20:17 metoprolol succinate Allergy Unknown Verified 05/11/18 20:17 [From Toprol XL] penicillin G Allergy Unknown Verified 05/11/18 13:01 ciprofloxacin HCl Allergy Verified 05/11/18 13:01 [From Cipro] clindamycin AdvReac Unknown DIARRHEA Verified 05/11/18 13:01 metoprolol AdvReac Unknown Verified 05/11/18 20:19 valsartan [From Diovan] AdvReac Unknown Verified 05/11/18 20:20 ESTRACE CREAM Allergy Unknown Uncoded 05/11/18 20:17 BENICAR AdvReac Unknown Uncoded 05/11/18 20:17 - Home Medications Home Medications: Ambulatory Orders Amlodipine Besylate 2.5 mg PO DAILY PRN 05/11/18 Atenolol [Tenormin] 50 mg PO BID 05/11/18 Bupropion HCl [Bupropion Xl] 150 mg PO DAILY 05/11/18 Diazepam 3 mg PO TID 05/11/18 Lisinopril [Prinivil -] 40 mg PO BID 05/11/18 Lovastatin 40 mg PO DAILY 05/11/18 Family Disease History - Family Disease History Family Disease History: Heart Disease: Mother, Brother Review of Systems - Review of Systems Constitutional: denies: Fever, Lethargy, Loss of Appetite Eyes: denies: Blurred Vision, Double Vision HENT: reports: No Symptoms Neck: reports: No Symptoms Cardiovascular: reports: No Symptoms Respiratory: reports: No Symptoms Gastrointestinal: reports: No Symptoms Genitourinary: reports: Vaginal Bleeding (intermittent) Musculoskeletal: reports: No Symptoms Integumentary: reports: No Symptoms Neurological: reports: Headache Endocrine: reports: No Symptoms Hematology/Lymphatic: denies: Easily Bruised, Excessive Bleeding Physical Exam Vital Signs: Vital Signs Temperature 97.6 F 05/11/18 16:01 Pulse Rate 73 05/11/18 16:01 Respiratory Rate 16 05/11/18 16:01 Blood Pressure 170/83 05/11/18 16:01 O2 Sat by Pulse Oximetry (%) 96 05/11/18 16:01 Constitutional: Yes: No Distress, Calm Eyes: Yes: Conjunctiva Clear, EOM Intact HENT: Yes: Atraumatic, Normocephalic Neck: Yes: Supple, Trachea Midline. No: Thyromegaly Cardiovascular: Yes: Regular Rate and Rhythm. No: Murmur Respiratory: Yes: Regular, CTA Bilaterally Gastrointestinal: Yes: Normal Bowel Sounds, Soft Extremities: Yes: WNL Edema: No Integumentary: No: Bruising, Erythema, Rash Neurological: Yes: Alert, Oriented ...Motor Strength: WNL Labs: CBC, BMP 05/11/18 14:30 05/11/18 14:30 Assessment/Plan 87 yr old woman with hx of ITP presents with platelet count of 28. Problem List: HTN HLD CAD ITP Plan - no signs of bleeding, will hold off on the platelets ordered in the ED - GI prophylaxis with protonix ordered - head CT to evaluate the headache - tylenol and ultram for headache pain
[2018-05-11] MEDS ORDERED: traMADol HCL 50 MG TABLET PO PRN (20:54)
[2018-05-11] MEDS ORDERED: PANTOPRAZOLE 40 MG TABLET (FP) PO ONE (21:23)
[2018-05-11] MEDS: diazePAM 2 MG TABLET PO SCH (23:12)
[2018-05-11] MEDS: ATENOLOL 50 MG TABLET (FP) PO SCH (23:12)
--- NOTE | 2018-05-11 23:34 | CONSULT ---
Consult - text type - Consultation Consultation Note: Ptient seen and examined with Dr. Jin 87 yr old woman with hx of ITP presents with platelet count of 28,000 Platelets [id number] when done by PCP and [place] [id number]. she was given dexamethasone 40mg c/o severe headache. Usually gets headaches but more severe Problem List: HTN HLD CAD ITP Plan check head CT No ovrt signs of bleeding. hold off on platelet transfusion if head CT-neg. discharge and close monitoring of platelets count
[2018-05-12] MEDS ORDERED: MELATONIN 5 MG TABLETS PO ONE (04:30)
[2018-05-12] MEDS: LISINOPRIL 20 MG TABLET (FP) PO SCH ×2 (04:53→10:01)
[2018-05-12] MEDS: diazePAM 2 MG TABLET PO SCH ×2 (05:54→13:11)
[2018-05-12 07:30] LABS: BASO % 0.1 % (0-2.0); HEMATOCRIT 40.7 % (32.4-45.2); HEMOGLOBIN 13.8 GM/dL (10.7-15.3); LYMPH % 17.4 % (8-40); MCH 29.9 pg (25.7-33.7); MCHC 33.8 g/dl (32.0-36.0); MEAN CELL VOLUME 88.4 fl (80-96); MEAN PLT VOLUME 10.4 fl (7.5-11.1); MONO % 1.7 % (3.8-10.2); NEUT % 80.8 % (42.8-82.8); RDW 13.4 % (11.6-15.6); WHITE BLOOD COUNT 2.6 K/mm3 (4.0-10.0)
[2018-05-12 08:02] LABS: ALBUMIN 3.7 g/dl (3.4-5.0); ALK PHOS 73 U/L (45-117); ANION GAP 7 MMOL/L (8-16); BILIRUBIN,TOTAL 0.8 mg/dL (0.2-1); BLOOD UREA NITROGEN 12 mg/dL (7-18); CALCIUM 8.5 mg/dL (8.5-10.1); CHLORIDE 101 mmol/L (98-107); CO2 28 mmol/L (21-32); CREATININE 0.6 mg/dL (0.55-1.3); GLUCOSE,RANDOM 121 mg/dL (74-106); POTASSIUM 3.4 mmol/L (3.5-5.1); SGOT/AST 18 U/L (15-37); SGPT/ALT 16 U/L (13-61); SODIUM 137 mmol/L (136-145)
[2018-05-12 08:24] LABS: PLATELET COUNT 28 K/MM3 (134-434)
[2018-05-12] MEDS ORDERED: PANTOPRAZOLE 40 MG TABLET (FP) PO SCH (10:00)
[2018-05-12] MEDS ORDERED: POTASSIUM CHLORIDE ORAL LIQUID 20 MEQ/15 ML PO SCH (10:00)
[2018-05-12] MEDS: ATENOLOL 50 MG TABLET (FP) PO SCH (10:01)
--- NOTE | 2018-05-12 11:41 | DS ---
Physical Examination Vital Signs: Vital Signs Temperature 98.1 F 05/12/18 09:00 Pulse Rate 69 05/12/18 09:00 Respiratory Rate 20 05/12/18 09:00 Blood Pressure 134/70 05/12/18 09:00 O2 Sat by Pulse Oximetry (%) 97 05/12/18 09:00 Constitutional: Yes: Well Nourished, No Distress Cardiovascular: Yes: Regular Rate and Rhythm, Murmur Respiratory: Yes: WNL, Regular, CTA Bilaterally. No: Accessory Muscle Use, Rhonchi, SOB, Tachypnea, Wheezes Gastrointestinal: Yes: WNL, Normal Bowel Sounds, Soft. No: Distention, Tenderness Renal/: Yes: WNL Extremities: Yes: WNL Edema: No Neurological: Yes: WNL, Alert, Oriented Psychiatric: Yes: WNL, Alert, Oriented Labs: CBC, BMP 05/12/18 06:45 05/12/18 06:45 Discharge Summary Reason For Visit: THROMBOCYTOPENIA Current Active Problems Thrombocytopenia (Acute) Hospital Course: 87 year old female pmh significant for ITP admitted for thrombocytopenia. Plts 28k here, unchanged this am. Pt received decadron 40mg yesterday. Pt evaluated by hematology, advise outpt follow up on Tuesday. No overt signs of bleeding, head ct neg. Pt reports feeling well, vitals stable, labs stable. Emphasized the risk of bleeding and importance of home safety to prevent falls. Pt and son report understanding and reports they will follow up with on Tuesday. Pt is medically stable for discharge home. Condition: Good - Instructions Diet, Activity, Other Instructions: ambulate as tolerated FALL PRECAUTIONS FOLLOW UP WITH ON TUESDAY Referrals: Epifanio Mooney MD [Primary Care Provider] - 1 Week Kyree Pritchett MD [Staff Physician] - 05/15/18 Disposition: HOME - Home Medications Comprehensive Discharge Medication List: Ambulatory Orders Amlodipine Besylate 2.5 mg PO DAILY PRN 05/11/18 Atenolol [Tenormin] 50 mg PO BID 05/11/18 Bupropion HCl [Bupropion Xl] 150 mg PO DAILY 05/11/18 Diazepam 3 mg PO TID 05/11/18 Lisinopril [Prinivil -] 40 mg PO BID 05/11/18 Lovastatin 40 mg PO DAILY 05/11/18
[2018-05-12] MEDS ORDERED: POLYETHYLENE GLYCOL 3350 119 GM BTL PO ONE (14:15)
[2018-05-12 17:35] VITALS: BP 121/66; PULSE 67; TEMP 97.5
[2018-05-12] MEDS ORDERED: ATORVASTATIN CA 10 MG TABLET (FP) PO SCH (22:00)
== END 2018-05-12 18:32 | disposition home or self-care (01) ==
LOC: JER 12:43 → JERBED 15:38 → J7W 18:45
PROVIDERS: ADMIT Internal Medicine; ATTEND Internal Medicine
PROC: 3E033GC Introduction of Other Therapeutic Substance into Peripheral Vein, Percutaneous Approach (ICD-10-PCS; principal; 2018-05-11)
PROC: 3E0337Z Introduction of Electrolytic and Water Balance Substance into Peripheral Vein, Percutaneous Approach (ICD-10-PCS; 2018-05-11)
DX: D69.6 Thrombocytopenia, unspecified (principal); D69.3 Immune thrombocytopenic purpura; I10 Essential (primary) hypertension; E78.5 Hyperlipidemia, unspecified; K76.89 Other specified diseases of liver; N28.1 Cyst of kidney, acquired; F41.9 Anxiety disorder, unspecified; Z86.73 Personal history of transient ischemic attack (TIA), and cerebral infarction without residual deficits; Z88.0 Allergy status to penicillin; Z88.1 Allergy status to other antibiotic agents; Z88.8 Allergy status to other drugs, medicaments and biological substances
CPT/HCPCS: 36415; 70450-TC; 80048; 80053; 85025; 86850; 86900; 86901; 96374; 99284-25; G0378

== ENCOUNTER 2018-05-15 13:58 | Emergency (ER) | payer BC ==
--- NOTE | 2018-05-15 14:30 | PDOC ---
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 Per son and patient at bedside her blood pressure was elevated to 178 systolic at approximately 10:30 AM and the son had an understanding with Dr. Mooney that he can add an additional dose of anti-HTN medications when he measures high BPs. The son gave the patient her daily dose of lisinopril at 9: 30 AM, he measured the elevated BP at 10:30 and gave an extra dose of amlodipine 2.5. He remeasured the BP at 11:20 and it was 120s systolic. The patient states she felt lightheaded shortly after while getting off of the toilet and fell backward into the tub. The son came in right away when he heard the fall and found the patient bewildered and weak in the tub. She had a reasonable recollection of the event. The son sates that she appeared weak when he stood her back up and he called EMS who measured her systolic BPs in the low 100s and the patient was complaining of blurry vision,. On my interview and exam she felt her baseline and had no complaints except for mild right lower rib pain that she hit on the tub. Denies any chest pain, headache, SOB, or other symptoms. 05/15/18 15:15 <Floyd Andersen - Last Filed: 05/15/18 22:21> - General Chief Complaint: Injury Stated Complaint: FALL Time Seen by Provider: 05/15/18 14:30 Past History <Marilia Merida - Last Filed: 05/15/18 17:48> - Past Medical History Anemia: (ITP) Asthma: No Cancer: No Cardiac Disorders: Yes (valve leakage, blocked artery) CVA: (TIA) COPD: No CHF: No Dementia: No Diabetes: No GI Disorders: Yes (ibs) Disorders: Yes (Kidney cyst) HTN: Yes Hypercholesterolemia: Yes Liver Disease: Yes (liver cyst) Psychiatric Problems: Yes (ANXIETY.) Seizures: No Thyroid Disease: No - Surgical History 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) Appendectomy: Yes Cardiac Surgery: Yes (Varicose Veins) Cholecystectomy: No Lung Surgery: No Neurologic Surgery: No Orthopedic Surgery: No - Immunization History Immunization Up to Date: Yes - Suicide/Smoking/Psychosocial Hx Smoking Status: No Smoking History: Never smoked Have you smoked in the past 12 months: No Number of Cigarettes Smoked Daily: 0 If you are a former smoker, when did you quit?: 50+ years ago Hx Alcohol Use: No Drug/Substance Use Hx: No Substance Use Type: None Hx Substance Use Treatment: No <Floyd Andersen - Last Filed: 05/15/18 22:21> - Past Medical History Allergies/Adverse Reactions: Allergies Allergy/AdvReac Type Severity Reaction Status Date / Time aspirin Allergy Unknown Verified 05/15/18 14:23 carvedilol [From Coreg] Allergy Unknown Verified 05/15/18 14:23 ciprofloxacin [From Cipro] Allergy Unknown Verified 05/15/18 14:23 metoprolol succinate Allergy Unknown Verified 05/15/18 14:23 [From Toprol XL] penicillin G Allergy Unknown Verified 05/15/18 14:23 ciprofloxacin HCl Allergy Verified 05/15/18 14:23 [From Cipro] clindamycin AdvReac Unknown DIARRHEA Verified 05/15/18 14:23 metoprolol AdvReac Unknown Verified 05/15/18 14:23 valsartan [From Diovan] AdvReac Unknown Verified 05/15/18 14:23 ESTRACE CREAM Allergy Unknown Uncoded 05/15/18 14:23 BENICAR AdvReac Unknown Uncoded 05/15/18 14:23 Home Medications: Ambulatory Orders Amlodipine Besylate 2.5 mg PO DAILY PRN 05/11/18 Atenolol [Tenormin] 50 mg PO BID 05/11/18 Bupropion HCl [Bupropion Xl] 150 mg PO DAILY 05/11/18 Diazepam 3 mg PO TID 05/11/18 Lisinopril [Prinivil -] 40 mg PO BID 05/11/18 Lovastatin 40 mg PO DAILY 05/11/18 Review of Systems - Review of Systems Constitutional: Yes: Weakness. No: Chills, Diaphoresis, Fever, Loss of Appetite HEENTM: Yes: Blurred Vision. No: Eye Pain, Tearing Respiratory: No: Cough, Orthopnea, Shortness of Breath, SOB with Exertion Cardiac (ROS): No: Chest Pain, Irregular Heart Rate ABD/GI: No: Diarrhea, Nausea, Vomiting : No: Burning, Dysuria, Discharge Musculoskeletal: No: Joint Pain, Joint Swelling Integumentary: No: Bruising, Lesions, Lumps Neurological: No: Numbness, Paresthesia Psychiatric: Yes: Anxiety. No: Depression, Frequent Crying Hematologic/Lymphatic: No: Anemia, Blood Clots, Easy Bleeding <Floyd Andersen - Last Filed: 05/15/18 22:21> *Physical Exam - Vital Signs Last Vital Signs Temp Pulse Resp BP Pulse Ox 97.2 F L 71 18 142/73 97 05/15/18 14:24 05/15/18 14:24 05/15/18 14:24 05/15/18 14:24 05/15/18 14:24 <Marilia Merida - Last Filed: 05/15/18 17:48> - Physical Exam General Appearance: Yes: Nourished, Appropriately Dressed, Apparent Distress HEENT: positive: EOMI, GAEL, Normal ENT Inspection, Normal Voice Neck: positive: Trachea midline, Normal Thyroid, Supple. negative: Tender, Rigid Respiratory/Chest: positive: Lungs Clear, Normal Breath Sounds. negative: Chest Tender, Respiratory Distress, Accessory Muscle Use Cardiovascular: positive: Regular Rhythm, Regular Rate Gastrointestinal/Abdominal: positive: Normal Bowel Sounds, Flat, Soft. negative : Tender Lymphatic: negative: Adenopathy, Tenderness Musculoskeletal: negative: Normal Inspection (right lower rib tenderness), Decreased Range of Motion Extremity: positive: Normal Capillary Refill, Normal Inspection, Normal Range of Motion Integumentary: positive: Normal Color, Dry, Warm Neurologic: positive: Alert, Normal Mood/Affect, Normal Response, Motor Strength 5/5 (but generally slowed) <Floyd Andersen - Last Filed: 05/15/18 22:21> Moderate Sedation - Procedure Monitoring Vital Signs: Procedure Monitoring Vital Signs Temperature 97.2 F L 05/15/18 14:24 Pulse Rate 71 05/15/18 14:24 Respiratory Rate 18 05/15/18 14:24 Blood Pressure 142/73 05/15/18 14:24 O2 Sat by Pulse Oximetry (%) 97 05/15/18 14:24 <Marilia Merida - Last Filed: 05/15/18 17:48> ED Treatment Course - LABORATORY CBC & Chemistry Diagram: 05/15/18 15:47 05/15/18 16:43 - ADDITIONAL ORDERS Additional order review: Laboratory Results 05/15/18 05/15/18 05/15/18 16:43 15:47 15:47 PT with INR 11.80 INR 1.00 Sodium 134 L Cancelled Potassium 3.6 Cancelled Chloride 98 Cancelled Carbon Dioxide 25 Cancelled Anion Gap 10 Cancelled BUN 15 Cancelled Creatinine 0.6 Cancelled Creat Clearance w eGFR > 60 Cancelled Random Glucose 101 Cancelled Calcium 9.0 Cancelled Total Bilirubin 0.6 Cancelled AST 20 Cancelled ALT 23 Cancelled Alkaline Phosphatase 77 Cancelled Total Protein 6.4 Cancelled Albumin 4.0 Cancelled 05/15/18 15:47 RBC 4.85 MCV 88.3 MCHC 35.7 RDW 13.6 MPV 10.3 Neutrophils % 79.8 Lymphocytes % 10.7 D Monocytes % 8.2 D Eosinophils % 0.9 D Basophils % 0.4 D - Additional Consults Time Called: 17:48 (Paged Dr. Kyree Pritchett ) Consult/PCP: Kyree Pritchett (Oncology) <Marilia Merida - Last Filed: 05/15/18 17:48> - LABORATORY CBC & Chemistry Diagram: 05/15/18 15:47 05/15/18 16:43 <Floyd Andersen - Last Filed: 05/15/18 22:21> Medical Decision Making - Medical Decision Making 87 year old with HTN and weakness after her BPs dropped >70 mmhg post additional anti-htn medication administration. Patinte is non-inectious appearing and has no sign of trauma. 05/15/18 16:17 After much delay, the rib series was read as without fracture and the head CT was negative for bleed. Will DC home as patient is well appearing and posterior right chest pain resolved with Tylenol PO. 05/15/18 22:15 EKG not showinmg any sign of acute ischemia. rate 72, IN 94, QTc 453, no ST elevations or IN depressions. 05/15/18 22:18 <Floyd Andersen - Last Filed: 05/15/18 22:21> *DC/Admit/Observation/Transfer <Marilia Merida - Last Filed: 05/15/18 17:48> - Discharge Dispostion Decision to Admit order: No <Floyd Andersen - Last Filed: 05/15/18 22:21> Diagnosis at time of Disposition: Fall Qualifiers: Encounter type: initial encounter Qualified Code(s): W19.XXXA - Unspecified fall, initial encounter - Discharge Dispostion Disposition: HOME Condition at time of disposition: Improved - Referrals Referrals: Epifanio Mooney MD [Primary Care Provider] - - Patient Instructions Printed Discharge Instructions: DI for Syncope in Adults (Fainting) Additional Instructions: Please follow up with Dr. Mooney this week. Please do not give any extra doses of ANti hypertensive medications unless the blood pressure is elevated above 160 for greater than 3 hours after you give her her regular dose of blood pressure medications. Lowering her blood pressure too quickly was likely the cause of her lightheadedness and fall. Please return to the ED if she has more of the same or other concerning symptoms. - Post Discharge Activity
[2018-05-15 14:33] VITALS: BP 142/73; PULSE 71; TEMP 97.2; BMI 20.1
--- NOTE | 2018-05-15 15:15 | PDOC ---
Attending Attestation - Resident Resident Name: Floyd Andersen - ED Attending Attestation I have performed the following: I have examined & evaluated the patient, The case was reviewed & discussed with the resident, I agree w/resident's findings & plan, Exceptions are as noted - HPI HPI: 05/15/18 16:56 see kia - Physicial Exam PE: 05/15/18 16:55 GENERAL: The patient is awake, alert, and fully oriented, Nontoxic - in no acute distress. HEAD: Normocephalic, atraumatic. NECK: No focal midline cervical/thoracic/lumbar tenderness MSK: Mild R flakn tedneress ABD: No abd tenderness, mild ttp at R inferior/posterior ribs EXT: No ROM of upper/lwoer extremities without focal tenderness - Medical Decision Making 05/15/18 15:15 87y F ITP, HTN, balance issues, frequent falls, recent hospitalization for ITP with platelets of 28 on 05/12, has felt generally weak recently. otday pt went to the bathroom ,felt weak and fell. Does not recall the fall itself, but recalls feeling generally weak. Per the son the patient did have an episode of feeling very disoriented when he went to go check on the patient. Only back to baseline denies any headache, neck pain, numbness, tingling, weakness, vision changes, chest pain, shortness of breath, abdominal pain, extremity pain. The patient does endorse mild right flank pain after the fall. The patients BP was elevated to 170 this morning and the plan from PMD was take small dose of Norvasc when the blood pressure is elevated, the blood pressure decreased approximate 120 at about 11:30 prior to her fall, after falling the EMS arrived and noted her blood pressure was 100 systolic. A portion of this note was documented by scribe services under my direction. I have reviewed the details of the note, within reason, and agree with the documentation with the following case summary and management plan written by me suspect her fall may have been due to hypotension from th eextra dose of norvasc. pts BP currently stable. will obtain screening blood work to r/o metabolic derangement, anemia, occult infection heada ct to r/o pathology rib series to r/o fx 05/15/18 19:[address] head neg awaiting rib series, if neg anticipate dc with pmd fu Heart Score/ECG Review - ECG Impressions Comment:: 05/15/18 16:56 Twelve-lead EKG was performed and reviewed by me. There is normal sinus rhythm with a normal rate. Rate is 72 Left ventricular hypertrophy with repolarization Q waves in inferior leads Abnormal R wave progression
[2018-05-15 15:59] LABS: BASO % 0.4 % (0-2.0); EOS % 0.9 % (0-4.5); HEMATOCRIT 42.9 % (32.4-45.2); HEMOGLOBIN 15.3 GM/dL (10.7-15.3); LYMPH % 10.7 % (8-40); MCH 31.5 pg (25.7-33.7); MCHC 35.7 g/dl (32.0-36.0); MEAN CELL VOLUME 88.3 fl (80-96); MEAN PLT VOLUME 10.3 fl (7.5-11.1); MONO % 8.2 % (3.8-10.2); NEUT % 79.8 % (42.8-82.8); PLATELET COUNT 65 K/MM3 (134-434); RBC 4.85 M/mm3 (3.60-5.2); RDW 13.6 % (11.6-15.6); WHITE BLOOD COUNT 8.7 K/mm3 (4.0-10.0)
[2018-05-15 16:11] LABS: PROTHROMBIN TIME (PATIENT) 11.8 SEC (9.7-13.0)
[2018-05-15 17:42] LABS: ALK PHOS 77 U/L (45-117); ANION GAP 10 MMOL/L (8-16); BILIRUBIN,TOTAL 0.6 mg/dL (0.2-1); BLOOD UREA NITROGEN 15 mg/dL (7-18); CHLORIDE 98 mmol/L (98-107); CO2 25 mmol/L (21-32); CREATININE 0.6 mg/dL (0.55-1.3); GLUCOSE,RANDOM 101 mg/dL (74-106); POTASSIUM 3.6 mmol/L (3.5-5.1); SGOT/AST 20 U/L (15-37); SGPT/ALT 23 U/L (13-61); SODIUM 134 mmol/L (136-145); TOT PROT 6.4 g/dl (6.4-8.2)
[2018-05-15] MEDS ORDERED: ACETAMINOPHEN 325 MG TABLET (FP) ONE (20:51)
[2018-05-15] MEDS ORDERED: ACETAMINOPHEN 500 MG TABLET (FP) PO ONE (20:51)
--- NOTE | 2018-05-16 18:15 | EKG ---
Test Reason : Blood Pressure : / mmHG Vent. 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
== END 2018-05-15 23:20 | disposition home or self-care (01) ==
LOC: JER 13:58
DX: I10 Essential (primary) hypertension (principal); R53.1 Weakness; M54.5 Low back pain; R07.81 Pleurodynia; W18.2XXA Fall in (into) shower or empty bathtub, initial encounter; Z91.81 History of falling; Y93.89 Activity, other specified; Y92.031 Bathroom in apartment as the place of occurrence of the external cause; Y99.8 Other external cause status; D69.3 Immune thrombocytopenic purpura; F41.9 Anxiety disorder, unspecified; E78.00 Pure hypercholesterolemia, unspecified; R26.89 Other abnormalities of gait and mobility; Z86.73 Personal history of transient ischemic attack (TIA), and cerebral infarction without residual deficits; Z88.8 Allergy status to other drugs, medicaments and biological substances
CPT/HCPCS: 36415; 70450-TC; 71101-TC-RT-FY; 80053; 85025; 85610; 93005; 93010; 99283-25

== ENCOUNTER 2018-08-01 10:03 | Emergency (ER) | payer BC ==
[2018-08-01 10:26] VITALS: BP 174/97; PULSE 75; BMI 18.3
[2018-08-01] MEDS ORDERED: ACETAMINOPHEN 1000 MG/100 ML VIAL (NON FORMULARY) IVPB ONE ×2 (10:37→10:39)
[2018-08-01] MEDS ORDERED: ACETAMINOPHEN INJECTION 100 ML IVPB ONE (10:49)
[2018-08-01 10:54] VITALS: TEMP 97.4
--- NOTE | 2018-08-01 10:54 | PDOC ---
History of Present Illness <Genaro Ham - Last Filed: 08/01/18 16:25> - General History Source: Patient, Family, Old Records Exam Limitations: No Limitations - History of Present Illness Initial Comments: 08/01/18 12:11 Ms Gutierrez is an 88 yo F CAD, HTN, ITP/thrombocytopenia, valvular pathology who presents to the ER with her son due to abdominal pain PT has a h/o constipation, last bowel movement was 3 days ago. She took a suppository this morning and approximately 1 hour later, she noted severe rectal pain as well as abdominal pain. No fevers or chills. No vomiting. Pt is difficult to get a history from as she is hyperventilating PMH: CAD, HTN, ITP/thrombocytopenia, valvular pathology PSH: Hysterectomy Meds: ALL: multiple Social: Denies drug, tobacco, alcohol use, lives with son FH: non contributory ROS: GENERAL/CONSTITUTIONAL: No: fever, chills, weakness, loss of appetite. HEAD, EYES, EARS, NOSE AND THROAT: No: change in vision, ear pain, discharge, sore throat, throat swelling. CARDIOVASCULAR: No: chest pain, lightheadedness, palpitations, syncope RESPIRATORY: No: cough, shortness of breath, wheezing, hemoptysis, stridor. GASTROINTESTINAL: Yes: abdominal pain, rectal pain No: nausea, vomiting, diarrhea GENITOURINARY: No: dysuria, hematuria, frequency, urgency, flank pain. MUSCULOSKELETAL: No: back pain, neck pain, joint pain SKIN: No: lesions, pallor, rash or easy bruising. NEUROLOGIC: No: headache, vertigo, paresthesias, weakness PE: GENERAL: The patient is in no acute distress, pt is hyperventilating, pt is anxious appearing HEAD: Normal EYES: PERRLA, EOMI, sclera anicteric, conjunctiva clear. ENT: Ears normal, nares patent, oropharynx clear without exudates. Moist mucous membranes. NECK: Normal range of motion, supple LUNGS: Breath sounds equal, clear to auscultation bilaterally. tachypneic HEART:Regular rate and rhythm, normal S1 and S2 without murmur, rub or gallop. ABDOMEN: Soft, tender to palpation, right side more tender than left side RECTAL: liquid stools noted, distal to examiners finger, soft stool noted, no external hemorrhoids, stool brown EXTREMITIES: Normal range of motion, no edema. NEUROLOGICAL: Cranial nerves II through XII grossly intact. Normal speech. No focal neurological deficits. MUSCULOSKELETAL: Back non-tender to palpation, no CVA tenderness SKIN: Warm, Dry, normal turgor, no rashes or lesions noted. 08/01/18 12:14 08/01/18 13:05 08/01/18 17:01 <Pavithra Jimenez - Last Filed: 08/01/18 17:32> - General Chief Complaint: Constipation Stated Complaint: Blood Pressure Problem Time Seen by Provider: 08/01/18 10:39 Past History <Genaro Ham - Last Filed: 08/01/18 16:25> - Past Medical History Anemia: (ITP) Asthma: No Cancer: No Cardiac Disorders: Yes (valve leakage, blocked artery) CVA: (TIA) COPD: No CHF: No Dementia: No Diabetes: No GI Disorders: Yes (ibs) Disorders: Yes (Kidney cyst) HTN: Yes Hypercholesterolemia: Yes Liver Disease: Yes (liver cyst) Psychiatric Problems: Yes (ANXIETY.) Seizures: No Thyroid Disease: No - Surgical History 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) Appendectomy: Yes Cardiac Surgery: Yes (Varicose Veins) Cholecystectomy: No Lung Surgery: No Neurologic Surgery: No Orthopedic Surgery: No - Immunization History Immunization Up to Date: Yes - Suicide/Smoking/Psychosocial Hx Smoking Status: No Smoking History: Never smoked Have you smoked in the past 12 months: No Number of Cigarettes Smoked Daily: 0 If you are a former smoker, when did you quit?: 50+ years ago Information on smoking cessation initiated: No Hx Alcohol Use: No Drug/Substance Use Hx: No Substance Use Type: None Hx Substance Use Treatment: No <Pavithra Jimenez - Last Filed: 08/01/18 17:32> - Past Medical History Allergies/Adverse Reactions: Allergies Allergy/AdvReac Type Severity Reaction Status Date / Time aspirin Allergy Unknown Verified 08/01/18 10:25 carvedilol [From Coreg] Allergy Unknown Verified 08/01/18 10:25 ciprofloxacin [From Cipro] Allergy Unknown Verified 08/01/18 10:25 metoprolol succinate Allergy Unknown Verified 08/01/18 10:25 [From Toprol XL] penicillin G Allergy Unknown Verified 08/01/18 10:25 ciprofloxacin HCl Allergy Verified 08/01/18 10:25 [From Cipro] clindamycin AdvReac Unknown DIARRHEA Verified 08/01/18 10:25 metoprolol AdvReac Unknown Verified 08/01/18 10:25 valsartan [From Diovan] AdvReac Unknown Verified 08/01/18 10:25 ESTRACE CREAM Allergy Unknown Uncoded 08/01/18 10:25 BENICAR AdvReac Unknown Uncoded 08/01/18 10:25 Home Medications: Ambulatory Orders Amlodipine Besylate 2.5 mg PO DAILY PRN 05/11/18 Atenolol [Tenormin] 50 mg PO BID 05/11/18 Bupropion HCl [Bupropion Xl] 150 mg PO DAILY 05/11/18 Diazepam 3 mg PO TID 05/11/18 Lisinopril [Prinivil -] 40 mg PO BID 05/11/18 Lovastatin 40 mg PO DAILY 05/11/18 Polyethylene Glycol 3350 [Miralax (For Bowel Prep) -] 17 gm PO BID PRN #1 btl *Physical Exam - Vital Signs Last Vital Signs Temp Pulse Resp BP Pulse Ox 97.4 F L 75 24 H 174/97 H 99 08/01/18 10:53 08/01/18 10:21 08/01/18 10:21 08/01/18 10:21 08/01/18 10:21 <Genaro Ham - Last Filed: 08/01/18 16:25> - Vital Signs Last Vital Signs Temp Pulse Resp BP Pulse Ox 97.9 F 75 24 H 174/97 H 99 08/01/18 10:21 08/01/18 10:21 08/01/18 10:21 08/01/18 10:21 08/01/18 10:21 <Pavithra Jimenez - Last Filed: 08/01/18 17:32> ED Treatment Course - LABORATORY CBC & Chemistry Diagram: 08/01/18 13:18 08/01/18 13:18 - ADDITIONAL ORDERS Additional order review: Laboratory Results 08/01/18 08/01/18 13:18 11:00 Sodium 135 L Potassium 3.5 Chloride 98 Carbon Dioxide 30 Anion Gap 8 BUN 6 L Creatinine 0.6 Creat Clearance w eGFR 94.79 Random Glucose 89 Calcium 9.0 Magnesium 2.4 Total Bilirubin 1.0 AST 21 ALT 16 Alkaline Phosphatase 79 Creatine Kinase 42 Troponin I < 0.02 Total Protein 6.1 L Albumin 3.8 Stool Occult Blood Negative 08/01/18 13:18 RBC 4.45 MCV 87.1 MCHC 35.5 RDW 13.8 MPV 10.0 Neutrophils % 85.6 H Lymphocytes % 7.3 L D Monocytes % 6.2 Eosinophils % 0.3 Basophils % 0.6 - Medications Given in the ED: ED Medications Discontinued Medications Generic Name Dose Route Start Last Admin Trade Name Elsy PRN Reason Stop Dose Admin Acetaminophen 1,000 mg 08/01/18 10:37 08/01/18 11:52 Ofirmev Injection - IVPB 08/01/18 10:38 1,000 mg ONCE ONE Administration Acetaminophen 1,000 mg 08/01/18 10:39 08/01/18 11:43 Ofirmev Injection - IVPB 08/01/18 10:40 Not Given ONCE ONE Lorazepam 1 mg 08/01/18 10:54 08/01/18 11:43 Ativan Injection - IVPUSH 08/01/18 10:55 Not Given ONCE ONE Lorazepam 0.5 mg 08/01/18 11:15 08/01/18 11:53 Ativan Injection - IVPUSH 08/01/18 11:16 Not Given ONCE ONE <Genaro Ham - Last Filed: 08/01/18 16:25> - LABORATORY CBC & Chemistry Diagram: 08/01/18 13:18 08/01/18 13:18 <Pavithra Jimenez - Last Filed: 08/01/18 17:32> Medical Decision Making - Medical Decision Making 08/01/[address] Mooney at 16:00. Case discussed with Dr. Mooney at 16:23. <Genaro Ham - Last Filed: 08/01/18 16:25> - Medical Decision Making 08/01/18 12:05 EKG - Artifact due to shaking SR, rate of 91 bpm, axis appears to be normal, limited ability to assess st segments Will do labs Pt is difficult access Pt is very anxious She was given extra benzos this morning prior to arrival in the ER Pt is now calm Difficult IV access Will plan to CT as pt is tender to palpation diffusely 08/01/18 13:37 Labs still pending They were sent 08/01/18 13:37 Pt is more calm, she is no longer hyperventilating, resting with family 08/01/18 15:55 Laboratory Tests 08/01/18 08/01/18 13:18 13:18 WBC 11.6 H Hgb 13.8 Hct 38.8 Plt Count 54 L BUN 6 L Creatinine 0.6 Creatine Kinase 42 Troponin I < 0.02 08/01/18 15:55 Pt re assessed after CT Pt is now crying and stating that she has rectal and vaginal pain PT has not taken her wellbutrin today Will give this as well as Valium Pt is hyperventilating and anxious again 08/01/18 16:48 Given Valium 2mg po and Wellbutrin 37.5mg CT demonstrates hepatic cysts, nml spleen, pancreas, adrenal glands, kidneys, no appy or diverticulitis Large amount of retained fecal material with facal impaction in coon and rectum Pt has had a large bowel movement since this CT and voided I have contacted Dr. Mooney Pt has apparently been undergoing weaning of her medications (from Wellbutryin 150mg XL daily to Wellbutrin 75mg BID to Wellbutrin 37.5mg BID AND Valium from 10 Q4 now to 2mg TID) Call placed to Dr. Luo who recommends pt be managed by primary attending as an outpatient CAll placed again to Dr. Mooney He can follow this patient in the office, would recommend increasing Wellbutryin back to 75 mg po bid and Valium 2mg po tid (an extra dose can be given if needed) 08/01/18 16:57 Will do soap suds enema Will discharge to home <Pavithra Jimenez - Last Filed: 08/01/18 17:32> *DC/Admit/Observation/Transfer - Attestations Scribe Attestion: 08/01/18 16:01 Documentation prepared by Genaro Ham, acting as medical scheduler for Pavithra Jimenez MD. <Genaro Ham - Last Filed: 08/01/18 16:25> - Discharge Dispostion Decision to Admit order: No <Pavithra Jimenez - Last Filed: 08/01/18 17:32> Diagnosis at time of Disposition: Constipation Qualifiers: Constipation type: other constipation type Qualified Code(s): K59.09 - Other constipation - Discharge Dispostion Disposition: HOME Condition at time of disposition: Good - Referrals Referrals: Epifanio Mooney MD [Primary Care Provider] - - Patient Instructions Printed Discharge Instructions: DI for Constipation, Constipation (Alternative Therapy), Constipation Additional Instructions: Thank you for coming in to the ER today Please resume wellbutrin 75 mg twice per day Please continue Valium 2mg three times per day, she can be given an extra dose of valium for breakthrough anxiety Please start a bowel regimen! This is very important Please take Miralax twice per day Please continue to take colace and fiber You MUST stay hydrated in order for any of these medications to work Please return to the ER for any other concerns or complaints - Post Discharge Activity
[2018-08-01 13:37] LABS: BASO % 0.6 % (0-2.0); EOS % 0.3 % (0-4.5); HEMATOCRIT 38.8 % (32.4-45.2); HEMOGLOBIN 13.8 GM/dL (10.7-15.3); LYMPH % 7.3 % (8-40); MCH 30.9 pg (25.7-33.7); MCHC 35.5 g/dl (32.0-36.0); MEAN CELL VOLUME 87.1 fl (80-96); MONO % 6.2 % (3.8-10.2); NEUT % 85.6 % (42.8-82.8); PLATELET COUNT 54 K/MM3 (134-434); RBC 4.45 M/mm3 (3.60-5.2); RDW 13.8 % (11.6-15.6); WHITE BLOOD COUNT 11.6 K/mm3 (4.0-10.0)
[2018-08-01 14:17] LABS: ALBUMIN 3.8 g/dl (3.4-5.0); ALK PHOS 79 U/L (45-117); ANION GAP 8 MMOL/L (8-16); BLOOD UREA NITROGEN 6 mg/dL (7-18); CHLORIDE 98 mmol/L (98-107); CO2 30 mmol/L (21-32); CREATININE 0.6 mg/dL (0.55-1.3); GLUCOSE,RANDOM 89 mg/dL (74-106); MAGNESIUM 2.4 mg/dL (1.8-2.4); POTASSIUM 3.5 mmol/L (3.5-5.1); SGOT/AST 21 U/L (15-37); SGPT/ALT 16 U/L (13-61); SODIUM 135 mmol/L (136-145); TOT PROT 6.1 g/dl (6.4-8.2)
[2018-08-01] MEDS ORDERED: buPROPion HCL 75 MG TABLET PO ONE (15:52)
[2018-08-01] MEDS ORDERED: diazePAM 2 MG TABLET PO ONE (15:54)
[2018-08-01] MEDS ORDERED: diazePAM 2 MG TABLET ONE (16:09)
--- NOTE | 2018-08-02 10:12 | EKG ---
Test Reason : Blood Pressure : / mmHG Vent. Rate : 091 BPM Atrial Rate : 091 BPM P-R Int : 360 ms QRS Dur : 096 ms QT Int : 450 ms P-R-T Axes : 000 -11 -27 degrees QTc Int : 553 ms POOR DATA QUALITY, INTERPRETATION MAY BE ADVERSELY AFFECTED non-diagnostic EKG Confirmed by FANI ALTMAN MD ([id number]) on 08/02/2018 10:11:54 AM Referred By: Confirmed By:FANI ALTMAN MD
== END 2018-08-01 19:21 | disposition home or self-care (01) ==
LOC: JER 10:03
PROC: 3E033NZ Introduction of Analgesics, Hypnotics, Sedatives into Peripheral Vein, Percutaneous Approach (ICD-10-PCS; principal; 2018-08-01)
DX: K59.09 Other constipation (principal); I25.10 Atherosclerotic heart disease of native coronary artery without angina pectoris; I10 Essential (primary) hypertension; E78.00 Pure hypercholesterolemia, unspecified; D69.3 Immune thrombocytopenic purpura; F41.9 Anxiety disorder, unspecified; Z87.19 Personal history of other diseases of the digestive system; Z86.73 Personal history of transient ischemic attack (TIA), and cerebral infarction without residual deficits
CPT/HCPCS: 36415; 74177-TC; 80053; 82272; 82550; 83735; 84484; 85025; 93005; 93010; 96374; 99282-25; J0131

== ENCOUNTER 2019-03-21 10:54 | Inpatient (IN) | payer BC ==
[2019-03-21] MEDS ORDERED: LORazepam 1 MG TABLET PO ONE (11:44)
[2019-03-21] MEDS ORDERED: LORazepam 0.5 MG TABLET ONE (11:45)
[2019-03-21 12:22] LABS: INR 0.93 (0.83-1.09)
[2019-03-21 12:26] LABS: ALBUMIN 4.1 g/dl (3.4-5.0); ALK PHOS 92 U/L (45-117); ANION GAP 12 MMOL/L (8-16); BILIRUBIN,TOTAL 1.3 mg/dL (0.2-1); BLOOD UREA NITROGEN 7.5 mg/dL (7-18); CALCIUM 9.5 mg/dL (8.5-10.1); CHLORIDE 98 mmol/L (98-107); CO2 23 mmol/L (21-32); CREATININE 0.8 mg/dL (0.55-1.3); GLUCOSE,RANDOM 113 mg/dL (74-106); POTASSIUM 3.6 mmol/L (3.5-5.1); SGOT/AST 57 U/L (15-37); SGPT/ALT 18 U/L (13-61); SODIUM 133 mmol/L (136-145); TOT PROT 6.9 g/dl (6.4-8.2)
--- NOTE | 2019-03-21 12:31 | PDOC ---
Documentation entered by Natalya Almendarez SCRIBE, acting as scribe for Luis Villafana MD. Luis Villafana MD: This documentation has been prepared by the Erickson lakhani Maria, SCRIBE, under my direction and personally reviewed by me in its entirety. I confirm that the documentation accurately reflects all work, treatment, procedures, and medical decision making performed by me. History of Present Illness - General Chief Complaint: Pain, Acute Stated Complaint: BACK PAIN Time Seen by Provider: 03/21/19 11:17 History Source: Patient, Family Exam Limitations: No Limitations - History of Present Illness Initial Comments: 03/21/19 12:27 Patient is an 88-year-old female with history of hypertension, hyperlipidemia, anxiety/depression, ITP presents from home complaining of atraumatic continuous low back pain left flank and anterior chest pain which started several hours prior to arrival. Patient is unable to cooperate with a detailed H&P and claims that she does not know the duration no of the severity of most of her symptoms. Patient also complains of bilateral hand paresthesias, perioral paresthesias, bilateral foot numbness and intermittent blurry vision. As per patient's son, patient is currently on the taper of diazepam from 10 mg 4 times daily to 2 mg 4 times daily. Patient is also stopped Wellbutrin at the instruction of her primary care doctor. Past History - Past Medical History Allergies/Adverse Reactions: Allergies Allergy/AdvReac Type Severity Reaction Status Date / Time aspirin Allergy Unknown Verified 03/21/19 10:58 carvedilol [From Coreg] Allergy Unknown Verified 03/21/19 10:58 ciprofloxacin [From Cipro] Allergy Unknown Verified 03/21/19 10:58 metoprolol succinate Allergy Unknown Verified 03/21/19 10:58 [From Toprol XL] penicillin G Allergy Unknown Verified 03/21/19 10:58 ciprofloxacin HCl Allergy Verified 03/21/19 10:58 [From Cipro] clindamycin AdvReac Unknown DIARRHEA Verified 03/21/19 10:58 metoprolol AdvReac Unknown Verified 03/21/19 10:58 valsartan [From Diovan] AdvReac Unknown Verified 03/21/19 10:58 ESTRACE CREAM Allergy Unknown Uncoded 03/21/19 10:58 BENICAR AdvReac Unknown Uncoded 11/20/19 10:58 Home Medications: Ambulatory Orders Amlodipine Besylate 2.5 mg PO DAILY PRN 05/11/18 Atenolol [Tenormin] 50 mg PO BID 05/11/18 Bupropion HCl [Bupropion Xl] 150 mg PO DAILY 05/11/18 Diazepam 3 mg PO TID 05/11/18 Lisinopril [Prinivil -] 40 mg PO BID 05/11/18 Lovastatin 40 mg PO DAILY 05/11/18 Polyethylene Glycol 3350 [Miralax (For Bowel Prep) -] 17 gm PO BID PRN #1 btl Anemia: (ITP) Asthma: No Cancer: No Cardiac Disorders: Yes (valve leakage, blocked artery) CVA: (TIA) COPD: No CHF: No Dementia: No Diabetes: No GI Disorders: Yes (ibs) Disorders: Yes (Kidney cyst) HTN: Yes Hypercholesterolemia: Yes Liver Disease: Yes (liver cyst) Psychiatric Problems: Yes (ANXIETY.) Seizures: No Thyroid Disease: No - Surgical History 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) Appendectomy: Yes Cardiac Surgery: Yes (Varicose Veins) Cholecystectomy: No Lung Surgery: No Neurologic Surgery: No Orthopedic Surgery: No - Immunization History Immunization Up to Date: Yes - Psycho Social/Smoking Cessation Hx Smoking Status: No Smoking History: Never smoked Have you smoked in the past 12 months: No Number of Cigarettes Smoked Daily: 0 If you are a former smoker, when did you quit?: 50+ years ago Hx Alcohol Use: No Drug/Substance Use Hx: No Substance Use Type: None Hx Substance Use Treatment: No *Physical Exam - Vital Signs Last Vital Signs Temp Pulse Resp BP Pulse Ox 97.7 F 71 16 190/92 H 98 03/21/19 10:59 03/21/19 10:59 03/21/19 10:59 03/21/19 10:59 03/21/19 10:59 - Physical Exam Comments: 03/21/19 12:28 REVIEW OF SYSTEMS CONSTITUTIONAL: No fever, no chills, no fatigue EYES: No visual changes ENT: No ear pain, no sore throat CARDIOVASCULAR: + chest pain, no palpitations RESPIRATORY: No cough, no SOB GI: No abdominal pain, no nausea, no vomiting, no constipation, no diarrhea GENITOURINARY: No dysuria, no frequency, no hematuria MUSKULOSKELETAL: + backpain, no joint pain, no myalgias SKIN: No rash NEURO: No headache EXAMINATION CONSTITUTIONAL: Patient is awake and alert, frail appearing, hyperventilating; in no apparent distress HEAD: Normocephalic; atraumatic EYES: PERRL; EOM intact ENMT: External appears normal; normal oropharynx NECK: Supple; non-tender; no cervical lymphadenopathy; +Torticollis on the left CARD: Normal S1, S2; no murmurs, rubs, or gallops RESP: Normal chest excursion with respiration; breath sounds clear and equal bilaterally; no wheezes, rhonchi, or rales ABD: Soft, non-distended; non-tender; no palpable organomegaly, no palpable hernias EXT: Normal ROM in all four extremities; non-tender to palpation; distal pulses intact SKIN: Warm, dry, +Multiple petechia to the ear forehead and lower extremities NEURO: No focal neurological deficiencies. Heart Score/ECG Review - ECG Intrepretation Comment:: 03/21/19 12:42 EKG performed at: 21 March 2019 at 11:41:36 Vent Rate: 76 bpm. SD interval: 182 ms. QRS duration: 96 ms. QT/QTc: 420/472 ms. P-R-T axes: 44 -4 0 Normal sinus rhythm. Anterior infarct, age undetermined. Abnormal ECG. ED Treatment Course - LABORATORY CBC & Chemistry Diagram: 03/21/19 11:36 03/21/19 11:36 - ADDITIONAL ORDERS Additional order review: Laboratory Results 03/21/19 03/21/19 11:36 11:36 PT with INR 11.00 INR 0.93 Sodium 133 L Potassium 3.6 Chloride 98 Carbon Dioxide 23 Anion Gap 12 BUN 7.5 Creatinine 0.8 Est GFR (CKD-EPI)AfAm 77.37 Est GFR (CKD-EPI)NonAf 66.76 Random Glucose 113 H Calcium 9.5 Total Bilirubin 1.3 H AST 57 H ALT 18 Alkaline Phosphatase 92 Creatine Kinase 130 Troponin I < 0.02 Total Protein 6.9 Albumin 4.1 - Medications Given in the ED: ED Medications Discontinued Medications Generic Name Dose Route Start Last Admin Trade Name Freq PRN Reason Stop Dose Admin Lorazepam 1 mg 03/21/19 11:44 03/21/19 11:50 Ativan - PO 03/21/19 11:45 1 mg ONCE ONE Administration Discharge - Discharge Information Problems reviewed: Yes Clinical Impression/Diagnosis: Thrombocytopenia Vertebral fracture, closed Qualifiers: Encounter type: initial encounter Fracture of vertebra location: thoracic Thoracic vertebra fracture level: T7 Fracture morphology: unspecified fracture morphology Qualified Code(s): S22.069A - Unspecified fracture of T7-T8 vertebra , initial encounter for closed fracture Urinary tract infection Qualifiers: Urinary tract infection type: acute cystitis Hematuria presence: without hematuria Qualified Code(s): N30.00 - Acute cystitis without hematuria Condition: Fair - Admission Yes - Follow up/Referral Referrals: Epifanio Mooney MD [Primary Care Provider] - - Patient Discharge Instructions - Post Discharge Activity
--- NOTE | 2019-03-21 12:46 | EKG ---
Test Reason : Blood Pressure : / mmHG Vent. Rate : 076 BPM Atrial Rate : 076 BPM P-R Int : 182 ms QRS Dur : 096 ms QT Int : 420 ms P-R-T Axes : 044 -04 000 degrees QTc Int : 472 ms NORMAL SINUS RHYTHM ANTERIOR INFARCT (CITED ON OR BEFORE 21-MAR-2019) ABNORMAL ECG WHEN COMPARED WITH ECG OF 01-AUG-2018 10:14, MINIMAL CRITERIA FOR INFERIOR INFARCT ARE NO LONGER PRESENT SERIAL CHANGES OF EVOLVING ANTERIOR INFARCT PRESENT Confirmed by AGAPITO ALEX, FANI ([id number]) on 03/21/2019 12:46:38 PM Referred By: Confirmed By:FANI ALTMAN MD
[2019-03-21 12:49] LABS: BASO % 1.2 % (0-2.0); EOS % 1.5 % (0-4.5); HEMATOCRIT 39.9 % (32.4-45.2); HEMOGLOBIN 14.3 GM/dL (10.7-15.3); LYMPH % 34.2 % (8-40); MCH 31.3 pg (25.7-33.7); MCHC 35.9 g/dl (32.0-36.0); MEAN CELL VOLUME 87.2 fl (80-96); MEAN PLT VOLUME 10.4 fl (7.5-11.1); MONO % 9.1 % (3.8-10.2); PLATELET COUNT 75 K/MM3 (134-434); RBC 4.58 M/mm3 (3.60-5.2); RDW 14.2 % (11.6-15.6); WHITE BLOOD COUNT 4.8 K/mm3 (4.0-10.0)
[2019-03-21] MEDS ORDERED: SODIUM CHLORIDE 1,000 ML IV STA (12:49)
[2019-03-21] MEDS ORDERED: ACETAMINOPHEN 1000 MG/100 ML VIAL (NON FORMULARY) IVPB ONE (12:49)
[2019-03-21] MEDS ORDERED: ACETAMINOPHEN INJECTION 100 ML IVPB ONE (12:52)
[2019-03-21 13:44] LABS: EPI CELLS 0.3 /HPF (0-5/HPF); HYALINE CASTS 0 /lpf (0-8); PH,URINE >= 9.0 (5.0-8.0); URINE APPEARANCE CLEAR; URINE BACTERIA 571.4 /hpf (NEGATIVE); URINE BILIRUBIN NEGATIVE (NEGATIVE); URINE COLOR YELLOW; URINE GLUCOSE (UA) NEGATIVE (NEGATIVE); URINE KETONE 1+ (NEGATIVE); URINE LEUK ESTERASE 3+ (NEGATIVE); URINE NITRITE NEGATIVE (NEGATIVE); URINE PROTEIN NEGATIVE (NEGATIVE); URINE RBC 4 /hpf (0-4); URINE WBC 31 /hpf (0-5)
[2019-03-21 13:48] LABS: PLATELET ESTIMATE DECREASED
[2019-03-21] MEDS ORDERED: CEFTRIAXONE 1,000 MG in DEXTROSE 5%-WATER - 50 ML IVPB ONE (13:53)
[2019-03-21] MEDS ORDERED: CEFTRIAXONE 1 GM/50 ML BAG ONE (14:26)
[2019-03-21] MEDS ORDERED: SODIUM CHLORIDE 1,000 ML IV SCH (16:45)
--- NOTE | 2019-03-21 17:05 | HP ---
CHIEF COMPLAINT: back pain and weakness PCP:dr godwin HISTORY OF PRESENT ILLNESS: patient states that the back pain started around 3 weeks ago and has been traveling around her spine and under her breast- there is no associated chest pain and it does not hurt when she takes a deep breath in. she has a history of chronic back pain and scoliosis in addition this AM she states that she was feeling very anxious (which and she felt that her hands and feet were very numb and tingling so she came to the ED. She states that has also been having frequent urination lately; she denies any recent sick contacts or travel ER course was notable for: (1)BP: 190/92 UA; 3+ leuk esterase, 31 WBC (2)given tylenol; ativan (3)lumbar/thoracic CT: chronic T5, T7, L5 fracture Recent Travel: none PAST MEDICAL HISTORY: HTN, HLD, ITP, CAD, anxiety PAST SURGICAL HISTORY: hysterectomy Social History: Smoking:former social smoker Alcohol:soccial Drugs: denies Allergies aspirin Allergy (Unknown, Verified 03/21/19 10:58) unable to take due to low platelets carvedilol [From Coreg] Allergy (Unknown, Verified 03/21/19 10:58) ciprofloxacin [From Cipro] Allergy (Unknown, Verified 03/21/19 10:58) metoprolol succinate [From Toprol XL] Allergy (Unknown, Verified 03/21/19 10:58) penicillin G Allergy (Unknown, Verified 03/21/19 10:58) ciprofloxacin HCl [From Cipro] Allergy (Verified 03/21/19 10:58) clindamycin Adverse Reaction (Unknown, Verified 03/21/19 10:58) DIARRHEA metoprolol Adverse Reaction (Unknown, Verified 03/21/19 10:58) as per the daycare assistant (son) Sp. unknown but think electrolyte imbalance. valsartan [From Diovan] Adverse Reaction (Unknown, Verified 03/21/19 10:58) ? k imbalance. ESTRACE CREAM Allergy (Unknown, Uncoded 03/21/19 10:58) BENICAR Adverse Reaction (Unknown, Uncoded 03/21/19 10:58) HOME MEDICATIONS: Home Medications Medication Instructions Recorded Amlodipine Besylate 2.5 mg PO DAILY PRN 05/11/18 Atenolol [Tenormin] 50 mg PO BID 05/11/18 Diazepam 3 mg PO TID 05/11/18 Lisinopril [Prinivil -] 40 mg PO BID 05/11/18 Lovastatin 40 mg PO DAILY 05/11/18 Polyethylene Glycol 3350 [Miralax 17 gm PO BID PRN #1 btl 08/01/18 (For Bowel Prep) -] Amlodipine Besylate 2.5 mg PO HS 03/21/19 REVIEW OF SYSTEMS CONSTITUTIONAL: Present: generalized weakness Absent: fever, chills, diaphoresis,, malaise, loss of appetite, weight change HEENT: Absent: rhinorrhea, nasal congestion, throat pain, throat swelling, difficulty swallowing, mouth swelling, ear pain, eye pain, visual changes CARDIOVASCULAR: Absent: chest pain, syncope, palpitations, irregular heart rate, lightheadedness , peripheral edema RESPIRATORY: Absent: cough, shortness of breath, dyspnea with exertion, orthopnea, wheezing, stridor, hemoptysis GASTROINTESTINAL: Absent: abdominal pain, abdominal distension, nausea, vomiting, diarrhea, constipation, melena, hematochezia GENITOURINARY: Absent: dysuria, frequency, urgency, hesitancy, hematuria, flank pain, genital pain MUSCULOSKELETAL: Absent: myalgia, arthralgia, joint swelling, back pain, neck pain SKIN: Absent: rash, itching, pallor HEMATOLOGIC/IMMUNOLOGIC: Absent: easy bleeding, easy bruising, lymphadenopathy, frequent infections ENDOCRINE: Absent: unexplained weight gain, unexplained weight loss, heat intolerance, cold intolerance NEUROLOGIC: Absent: headache, focal weakness or paresthesias, dizziness, unsteady gait, seizure, mental status changes, bladder or bowel incontinence PSYCHIATRIC: Absent: anxiety, depression, suicidal or homicidal ideation, hallucinations. PHYSICAL EXAMINATION Vital Signs - 24 hr 03/21/19 03/21/19 03/21/19 10:59 14:40 16:21 Temperature 97.7 F 98.5 F 98.5 F Pulse Rate 71 Pulse Rate [ 88 88 Left Radial] Respiratory Rate Blood Pressure 190/92 H Blood Pressure 168/78 130/71 [Right Arm] O2 Sat by Pulse 98 99 100 Oximetry (%) GENERAL: Awake, alert, and fully oriented, in no acute distress. EYES: PEERLA; EOMI; no scleral icterus NECK: no JVD; no lymphadenpoathy LUNGS: CTA B/L; no rales, rhonchi or wheezing . HEART: Regular rate and rhythm, normal S1 and S2 without murmur, rub or gallop. ABDOMEN: Soft, nontender, not distended, normoactive bowel sounds, no guarding, no rebound, no masses. No hepatomegaly or splenomegaly. MUSCULOSKELETAL: Normal range of motion at all joints. No bony deformities or tenderness. No CVA tenderness. EXTREMITIES: warm; well-perfused no clubbing/cyanosis or edema NEUROLOGICAL: Cranial nerves II-XII intact. Normal speech. cn 2-12 intact strength: RUE 4/5 RLE 4/5; LUE 4/5; LLE 4/5 SKIN: Warm, dry, normal turgor, no rashes or lesions noted, normal capillary refill. Laboratory Results - last 24 hr 03/21/19 03/21/19 03/21/19 11:36 11:36 11:36 WBC 4.8 RBC 4.58 Hgb 14.3 Hct 39.9 MCV 87.2 MCH 31.3 MCHC 35.9 RDW 14.2 Plt Count 75 L D MPV 10.4 Absolute Neuts (auto) 2.6 Neutrophils % 54.0 D Lymphocytes % 34.2 D Monocytes % 9.1 Eosinophils % 1.5 D Basophils % 1.2 Nucleated RBC % 0 Platelet Estimate Decreased Platelet Comment Smear reviewed PT with INR 11.00 INR 0.93 Sodium 133 L Potassium 3.6 Chloride 98 Carbon Dioxide 23 Anion Gap 12 BUN 7.5 Creatinine 0.8 Est GFR (CKD-EPI)AfAm 77.37 Est GFR (CKD-EPI)NonAf 66.76 Random Glucose 113 H Calcium 9.5 Total Bilirubin 1.3 H AST 57 H ALT 18 Alkaline Phosphatase 92 Creatine Kinase 130 Troponin I < 0.02 Total Protein 6.9 Albumin 4.1 Urine Color Urine Appearance Urine pH Ur Specific [place] Urine Protein Urine Glucose (UA) Urine Ketones Urine Blood Urine Nitrite Urine Bilirubin Urine Urobilinogen Ur Leukocyte Esterase Urine WBC (Auto) Urine RBC (Auto) Urine Casts (Auto) U Epithel Cells (Auto) Urine Bacteria (Auto) Blood Type Antibody Screen 03/21/19 03/21/19 11:36 13:19 WBC RBC Hgb Hct MCV MCH MCHC RDW Plt Count MPV Absolute Neuts (auto) Neutrophils % Lymphocytes % Monocytes % Eosinophils % Basophils % Nucleated RBC % Platelet Estimate Platelet Comment PT with INR INR Sodium Potassium Chloride Carbon Dioxide Anion Gap BUN Creatinine Est GFR (CKD-EPI)AfAm Est GFR (CKD-EPI)NonAf Random Glucose Calcium Total Bilirubin AST ALT Alkaline Phosphatase Creatine Kinase Troponin I Total Protein Albumin Urine Color Yellow Urine Appearance Clear Urine pH >= 9.0 H D Ur Specific [place] 1.005 L Urine Protein Negative Urine Glucose (UA) Negative Urine Ketones 1+ H Urine Blood Trace Urine Nitrite Negative Urine Bilirubin Negative Urine Urobilinogen 1.0 Ur Leukocyte Esterase 3+ H Urine WBC (Auto) 31 Urine RBC (Auto) 4 Urine Casts (Auto) 0 U Epithel Cells (Auto) 0.3 Urine Bacteria (Auto) 571.4 Blood Type B POSITIVE Antibody Screen Negative ASSESSMENT/PLAN: 88 y/o female with PMH of HTN, HLD, ITP, CAD, anxiety presents to the ED with complaints of weakness and back pain found to have a UTI #UTI UA: 3+ leuk esterase; 31 WBC -already received 1 dose of Ceftriaxone -will continue w/ Ceftriaxone -urine cx pending #Back Pain CT scans show chronic thoracic and lumbar fractures -will c/w tylneol PRN for pain relief #HTN c/w amlodipine, atenolol, lisinopril -monitor pressure #HLD c/w statin #Anxiety c/w Diazepam PRN #ITP platelet this AM were 75 -will monitor for signs of bleeding F/E/N NS @50mls X1 bag monitor electrolytes sodium-controlled diet DVT PPX: SCDS Family Medical History Family History: Unable to Obtain Problem List - Problem (1) Thrombocytopenia Code(s): D69.6 - THROMBOCYTOPENIA, UNSPECIFIED (2) Urinary tract infection Code(s): N39.0 - URINARY TRACT INFECTION, SITE NOT SPECIFIED Qualifiers: Urinary tract infection type: acute cystitis Hematuria presence: without hematuria Qualified Code(s): N30.00 - Acute cystitis without hematuria (3) Vertebral fracture, closed Code(s): [id number] - Qualifiers: Encounter type: initial encounter Fracture of vertebra location: thoracic Thoracic vertebra fracture level: T7 Fracture morphology: unspecified fracture morphology Qualified Code(s): S22.069A - Unspecified fracture of T7- T8 vertebra, initial encounter for closed fracture (4) Anxiety Code(s): F41.9 - ANXIETY DISORDER, UNSPECIFIED (5) Chronic ITP (idiopathic thrombocytopenic purpura) Code(s): D69.3 - IMMUNE THROMBOCYTOPENIC PURPURA Visit type - Emergency Visit Emergency Visit: Yes ED Registration Date: 03/21/19 Care time: The patient presented to the Emergency Department on the above date and was hospitalized for further evaluation of their emergent condition. - New Patient This patient is new to me today: Yes Date on this admission: 03/21/19 - Critical Care Critical Care patient: No ATTENDING PHYSICIAN STATEMENT I saw and evaluated the patient. I reviewed the resident's note and discussed the case with the resident. I agree with the resident's findings and plan as documented. SUBJECTIVE: OBJECTIVE: ASSESSMENT AND PLAN:
[2019-03-21] MEDS ORDERED: diazePAM 2 MG TABLET PO PRN (17:07)
[2019-03-21] MEDS ORDERED: amLODIPine BESYLATE 2.5 MG TABLET (FP) PO PRN (17:07)
--- NOTE | 2019-03-21 18:06 | PN ---
Teaching Attending Note Name of Resident: Cony Fernandez ATTENDING PHYSICIAN STATEMENT I saw and evaluated the patient. I reviewed the resident's note and discussed the case with the resident. I agree with the resident's findings and plan as documented. SUBJECTIVE: patient is an 88yo female with PMhx of ITP , presented to ED for having back pain that started around 3 weeks ago and has been traveling around her spine and under her breast. She states that has also been having frequent urination lately; with no burning sensation or urgency . son is at bedside. OBJECTIVE: Vital Signs Temperature 98.5 F 03/21/19 16:21 Pulse Rate 88 03/21/19 16:21 Respiratory Rate 19 03/21/19 16:21 Blood Pressure 130/71 03/21/19 16:21 O2 Sat by Pulse Oximetry (%) 100 03/21/19 16:21 GENERAL: The patient is awake, alert, and fully oriented, in no acute distress. HEAD: Normal with no signs of trauma. EYES: PERRL, extraocular movements intact, sclera anicteric, conjunctiva clear. ENT: Ears normal, oropharynx clear without exudates, moist mucous membranes. NECK: Trachea midline, full range of motion, supple. LUNGS: Breath sounds equal, clear to auscultation bilaterally, no wheezes, no crackles, no accessory muscle use. HEART: Regular rate and rhythm, S1, S2 positive, [place] 2/6 LSB , no rub or gallop. ABDOMEN: Soft, nontender, nondistended, normoactive bowel sounds, no guarding, no rebound, no hepatosplenomegaly, no masses. EXTREMITIES: 2+ pulses, warm, well-perfused, no edema. NEUROLOGICAL: Cranial nerves II through XII grossly intact. Normal speech, gait not observed. PSYCH: Normal mood, normal affect. SKIN: Warm, dry, normal turgor, no rashes or lesions noted CBCD WBC 4.8 K/mm3 (4.0-10.0) 03/21/19 11:36 RBC 4.58 M/mm3 (3.60-5.2) 03/21/19 11:36 Hgb 14.3 GM/dL (10.7-15.3) 03/21/19 11:36 Hct 39.9 % (32.4-45.2) 03/21/19 11:36 MCV 87.2 fl (80-96) 03/21/19 11:36 MCHC 35.9 g/dl (32.0-36.0) 03/21/19 11:36 RDW 14.2 % (11.6-15.6) 03/21/19 11:36 Plt Count 75 K/MM3 (134-434) L D 03/21/19 11:36 MPV 10.4 fl (7.5-11.1) 03/21/19 11:36 CMP Sodium 133 mmol/L (136-145) L 03/21/19 11:36 Potassium 3.6 mmol/L (3.5-5.1) 03/21/19 11:36 Chloride 98 mmol/L (98-107) 03/21/19 11:36 Carbon Dioxide 23 mmol/L (21-32) 03/21/19 11:36 Anion Gap 12 MMOL/L (8-16) 03/21/19 11:36 BUN 7.5 mg/dL (7-18) 03/21/19 11:36 Creatinine 0.8 mg/dL (0.55-1.3) 03/21/19 11:36 Random Glucose 113 mg/dL (74-106) H 03/21/19 11:36 Calcium 9.5 mg/dL (8.5-10.1) 03/21/19 11:36 Total Bilirubin 1.3 mg/dL (0.2-1) H 03/21/19 11:36 AST 57 U/L (15-37) H 03/21/19 11:36 ALT 18 U/L (13-61) 03/21/19 11:36 Alkaline Phosphatase 92 U/L (45-117) 03/21/19 11:36 Total Protein 6.9 g/dl (6.4-8.2) 03/21/19 11:36 Albumin 4.1 g/dl (3.4-5.0) 03/21/19 11:36 CARDIAC ENZYMES Creatine Kinase 130 U/L (26-192) 03/21/19 11:36 Troponin I < 0.02 ng/ml (0.00-0.05) 03/21/19 11:36 Current Medications Generic Name Dose Route Start Last Admin Trade Name Freq PRN Reason Stop Dose Admin Acetaminophen 650 mg 03/21/19 17:09 Tylenol - PO Q6H PRN Fever Or Pain Amlodipine Besylate 2.5 mg 03/21/19 17:07 Norvasc - PO DAILY PRN HYPERTENSION Atenolol 50 mg 03/21/19 22:00 Tenormin - PO BID MARBELLA Atorvastatin Calcium 10 mg 03/22/19 22:00 Lipitor - PO HS MARBELLA Diazepam 2 mg 03/21/19 17:56 Valium - PO TID PRN ANXIETY Sodium Chloride 1,000 mls @ 50 mls/hr 03/21/19 16:45 Normal Saline - IV 03/22/19 12:44 ASDIR MARBELLA Ceftriaxone Sodium 1 gm/ 50 mls @ 200 mls/hr 03/22/19 10:00 Dextrose IVPB DAILY [facility] Protocol Lisinopril 40 mg 03/21/19 22:00 Prinivil PO BID [facility] Home Medications Medication Instructions Recorded Amlodipine Besylate 2.5 mg PO DAILY PRN 05/11/18 Atenolol [Tenormin] 50 mg PO BID 05/11/18 Lisinopril [Prinivil -] 40 mg PO BID 05/11/18 Lovastatin 40 mg PO DAILY 05/11/18 Polyethylene Glycol 3350 [Miralax 17 gm PO BID PRN #1 btl 08/01/18 (For Bowel Prep) -] Diazepam 2 mg PO TID PRN 03/21/19 Microbiology 03/21/19 13:19 Urine - Urine - Catheterized ASSESSMENT AND PLAN: Patient is an 88 y/o female with PMHx of HTN, HLD, ITP, CAD, anxiety presents to the ED with complaints of weakness and back pain and was found to have a UTI #Acute UTI with urinary symptoms, ucx pending, on IV Rocephin will continue # Acute Back Pain: CT scans show chronic thoracic and lumbar fractures, tylneol PRN for pain relief #HTN : continue amlodipine, atenolol, lisinopril #HLD: continue statin #Anxiety: continue home Diazepam PRN #hx of ITP with platelets of 75K today , will monitor , hem/onc consult DVT px: SCds
[2019-03-21 18:24] VITALS: BMI 20.2
[2019-03-21] MEDS ORDERED: POLYETHYLENE GLYCOL 3350 255 GM BTL PO PRN (19:21)
[2019-03-21] MEDS: LISINOPRIL 20 MG TABLET (FP) PO SCH (22:33)
[2019-03-21] MEDS: DOCUSATE SODIUM 100 MG CAPSULE (FP) PO SCH (22:33)
[2019-03-21] MEDS: ATENOLOL 50 MG TABLET (FP) PO SCH (22:34)
[2019-03-22] MEDS: diazePAM 2 MG TABLET PO PRN ×3 (02:00→21:30)
[2019-03-22] MEDS: DOCUSATE SODIUM 100 MG CAPSULE (FP) PO SCH ×3 (06:29→21:29)
[2019-03-22] MEDS ORDERED: CEFTRIAXONE 1 GM in DEXTROSE 5%-WATER - 50 ML IVPB SCH (10:00)
[2019-03-22 10:25] LABS: HEMOGLOBIN 11.6 GM/dL (10.7-15.3); MCH 31.3 pg (25.7-33.7); MCHC 35.1 g/dl (32.0-36.0); MEAN CELL VOLUME 89.3 fl (80-96); RDW 14.5 % (11.6-15.6)
[2019-03-22 10:28] LABS: PLATELET COUNT 17 K/MM3 (134-434)
[2019-03-22 10:43] LABS: ALBUMIN 3.4 g/dl (3.4-5.0); BILIRUBIN,TOTAL 0.7 mg/dL (0.2-1); BLOOD UREA NITROGEN 7.6 mg/dL (7-18); CALCIUM 8.4 mg/dL (8.5-10.1); CREATININE 0.7 mg/dL (0.55-1.3); MAGNESIUM 2.1 mg/dL (1.8-2.4); PHOSPHOROUS 3.1 mg/dL (2.5-4.9); TOT PROT 5.5 g/dl (6.4-8.2)
[2019-03-22] MEDS ORDERED: cefTRIAXone SODIUM 1 GM VIAL ONE (11:12)
[2019-03-22] MEDS ORDERED: DEXTROSE 5%-WATER - 50 ML IVPB ONE (11:12)
[2019-03-22] MEDS: LISINOPRIL 20 MG TABLET (FP) PO SCH ×3 (11:23→21:48)
[2019-03-22 12:31] LABS: HEMOGLOBIN 11.7 GM/dL (10.7-15.3); MCH 31.7 pg (25.7-33.7); MCHC 35.4 g/dl (32.0-36.0); MEAN CELL VOLUME 89.7 fl (80-96); MEAN PLT VOLUME 10.6 fl (7.5-11.1); RBC 3.68 M/mm3 (3.60-5.2); RDW 14.3 % (11.6-15.6)
[2019-03-22 12:39] LABS: PLATELET COUNT 18 K/MM3 (134-434)
[2019-03-22] MEDS: ATENOLOL 50 MG TABLET (FP) PO SCH ×2 (14:09→21:30)
--- NOTE | 2019-03-22 14:49 | PN ---
Physical Exam: SUBJECTIVE: Patient seen and examined. She denies fever, chills, chest pain, abdominal pain, n/v. She does not have back pain when in bed. Pt has ITP, and she denies recent trauma to chest. OBJECTIVE: Vital Signs Period Temp Pulse Resp BP Sys/May Pulse Ox Last 24 Hr 97.7 F-98.9 F 66-88 18-19 109-149/54-84 98-100 GENERAL: The patient is awake, alert, and fully oriented, in no acute distress. HEAD: Normal with no signs of trauma. EYES: PERRL, extraocular movements intact, conjunctiva clear. ENT: Ears normal, nares patent, moist mucous membranes. NECK: Trachea midline, full range of motion, supple. LUNGS: Clear to auscultation bilaterally HEART: Regular rate and rhythm, no murmur ABDOMEN: Soft, nontender, nondistended, normoactive bowel sounds EXTREMITIES: Warm, well-perfused, no edema. NEUROLOGICAL: Cranial nerves II through XII grossly intact. Normal speech, gait not observed. PSYCH: Normal mood, normal affect. SKIN: Warm, dry, normal turgor, diffuse ecchymosis on arms, and petechiae on center of chest Laboratory Results - last 24 hr 03/22/19 03/22/19 03/22/19 06:00 09:36 12:15 WBC 4.0 6.0 RBC 3.70 3.68 Hgb 11.6 11.7 Hct 33.0 D 33.0 MCV 89.3 89.7 MCH 31.3 31.7 MCHC 35.1 35.4 RDW 14.5 14.3 Plt Count 17 L* D 18 L* MPV 10.0 10.6 Sodium 136 Potassium 3.0 L Chloride 103 Carbon Dioxide 26 Anion Gap 7 L BUN 7.6 Creatinine 0.7 Est GFR (CKD-EPI)AfAm 90.93 Est GFR (CKD-EPI)NonAf 78.45 Random Glucose 113 H Calcium 8.4 L Phosphorus 3.1 Magnesium 2.1 Total Bilirubin 0.7 AST 15 ALT 14 Alkaline Phosphatase 73 Total Protein 5.5 L Albumin 3.4 Active Medications Generic Name Dose Route Start Last Admin Trade Name Freq PRN Reason Stop Dose Admin Acetaminophen 650 mg 03/21/19 17:09 Tylenol - PO Q6H PRN Fever Or Pain Amlodipine Besylate 2.5 mg 03/21/19 17:07 Norvasc - PO DAILY PRN SBP >140 Atenolol 50 mg 03/21/19 22:00 03/22/19 14:09 Tenormin - PO 50 mg BID MARBELLA Administration Atorvastatin Calcium 10 mg 03/22/19 22:00 Lipitor - PO HS MARBELLA Diazepam 2 mg 03/21/19 17:56 03/22/19 14:30 Valium - PO 2 mg TID PRN Administration ANXIETY Docusate Sodium 100 mg 03/21/19 22:00 03/22/19 14:05 Colace - PO Not Given TID MARBELLA Lisinopril 40 mg 03/21/19 22:00 03/22/19 11:23 Prinivil PO 40 mg BID MARBELLA Administration Polyethylene Glycol 17 gm 03/21/19 19:21 Miralax (For Bowel Prep) - PO Q12H PRN CONSTIPATION Potassium Chloride 40 meq 03/22/19 14:48 K-Dur - PO 03/22/19 14:49 ONCE ONE ASSESSMENT/PLAN: Ms. Gutierrez is an 88y/o female with ITP, HTN, HLD, anxiety, and CAD who presents with back pain and weakness. #ITP Platelets at 17 today. -heme/onc consulted (Dr. Pritchett) #back pain UA +leuk esterase. Urine cx negative. -d/c ceftriaxone -Tylenol PRN pain -continue PT #hypokalemia 3.0 -replete -monitor labs #anxiety -diazepam PRN #HTN -lisinopril, atenolol, amlodipine #HLD -statin DVT Ppx SCDs FEN PO fluids monitor K sodium controlled diet dispo med/surg monitoring platelets Visit type - Emergency Visit Emergency Visit: Yes ED Registration Date: 03/21/19 Care time: The patient presented to the Emergency Department on the above date and was hospitalized for further evaluation of their emergent condition. - New Patient This patient is new to me today: Yes Date on this admission: 03/22/19 - Critical Care Critical Care patient: No - Discharge Referral Referred to [facility] Med P.C.: No ATTENDING PHYSICIAN STATEMENT I saw and evaluated the patient. I reviewed the resident's note and discussed the case with the resident. I agree with the resident's findings and plan as documented. SUBJECTIVE: OBJECTIVE: ASSESSMENT AND PLAN:
[2019-03-22] MEDS ORDERED: POTASSIUM CHLORIDE TABS 20 MEQ TABLET.ER (FP) PO ONE ×2 (15:00→18:54)
--- NOTE | 2019-03-22 16:18 | CONSULT ---
Consultation: REQUESTING PROVIDER: Heme/Onc Service CONSULT REQUEST: We have been asked to medically evaluate this patient for thrombocytopenia in setting of known ITP. HISTORY OF PRESENT ILLNESS: Pt is an 88 y/o F with PMH HTN, HLD, ITP, CAD, anxiety who presented to ED with complaint of back pain and tingling in the fingers. In hospital, she was found to have thrombocytopenia. 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 Pt accompanied by son who aided in giving history. Son states that pt's platelets are typically in the range of 35-100, though they vary. She was originally diagnosed about 7 years ago. 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 Pritchett, as she was feeling unwell. At this time, she denies saeed bleeding, though she notes some bruising on her arms and red spots on her forehead. She states she always feels a little short of breath. Denies blood in stool/urine. No cough/ REVIEW OF SYSTEMS: CONSTITUTIONAL: generalized weakness, Absent: fever, chills, diaphoresis, malaise, loss of appetite, weight change HEENT: Absent: rhinorrhea, nasal congestion, throat pain, throat swelling, difficulty swallowing, mouth swelling, ear pain, eye pain, visual changes CARDIOVASCULAR: Absent: chest pain, syncope, palpitations, irregular heart rate, lightheadedness , peripheral edema RESPIRATORY: dyspnea with exertion Absent: cough, shortness of breath, , orthopnea, wheezing, stridor, hemoptysis GASTROINTESTINAL: Absent: abdominal pain, abdominal distension, nausea, vomiting, diarrhea, constipation, melena, hematochezia GENITOURINARY: Absent: dysuria, frequency, urgency, hesitancy, hematuria, flank pain, genital pain MUSCULOSKELETAL: Absent: myalgia, arthralgia, joint swelling, back pain, neck pain SKIN: Absent: rash, itching, pallor HEMATOLOGIC/IMMUNOLOGIC: easy bruising Absent: easy bleeding,, lymphadenopathy, frequent infections ENDOCRINE: Absent: unexplained weight gain, unexplained weight loss, heat intolerance, cold intolerance NEUROLOGIC: Absent: headache, focal weakness or paresthesias, dizziness, unsteady gait, seizure, mental status changes, bladder or bowel incontinence PSYCHIATRIC: Absent: anxiety, depression, suicidal or homicidal ideation, hallucinations. PHYSICAL EXAMINATION Vital Signs - 24 hr 1103/21/19 03/21/19 16:21 17:00 17:08 Temperature 98.5 F Pulse Rate Pulse Rate [ 88 Left Radial] Respiratory 19 18 18 Rate Blood Pressure Blood Pressure 130/71 [Right Arm] O2 Sat by Pulse 100 100 100 Oximetry (%) 03/21/19 03/21/19 03/21/19 18:24 21:00 22:26 Temperature 98.9 F Pulse Rate 68 66 Pulse Rate [ Left Radial] Respiratory 18 18 18 Rate Blood Pressure 128/68 109/54 L Blood Pressure [Right Arm] O2 Sat by Pulse 98 Oximetry (%) 03/22/19 03/22/19 03/22/19 02:00 06:00 08:28 Temperature 97.7 F 97.8 F 98 F Pulse Rate 70 70 86 Pulse Rate [ Left Radial] Respiratory 18 18 18 Rate Blood Pressure 131/60 141/71 149/84 Blood Pressure [Right Arm] O2 Sat by Pulse Oximetry (%) 03/22/19 03/22/19 14:00 14:15 Temperature 98.4 F Pulse Rate 97 H 82 Pulse Rate [ Left Radial] Respiratory 18 18 Rate Blood Pressure 135/72 122/82 Blood Pressure [Right Arm] O2 Sat by Pulse Oximetry (%) Gen: AAOx3, NAD HEENT: few scattered petichiae on forehead, otherwise, NCAT, EOMI Neck: no jvd Cardio: hyperdynamic sustained PMI L midclavicular line, rrr, norm s1s2, no mrg Pulm: cta b/l Abd: mildly distended, normal BS, nontender, no organomegally, full bladder Ext: 2+ L DP, 1+ R DP, no edema, echymotic papule on L forearm Laboratory Results - last 24 hr 03/22/19 03/22/19 03/22/19 06:00 09:36 12:15 WBC 4.0 6.0 RBC 3.70 3.68 Hgb 11.6 11.7 Hct 33.0 D 33.0 MCV 89.3 89.7 MCH 31.3 31.7 MCHC 35.1 35.4 RDW 14.5 14.3 Plt Count 17 L* D 18 L* MPV 10.0 10.6 Sodium 136 Potassium 3.0 L Chloride 103 Carbon Dioxide 26 Anion Gap 7 L BUN 7.6 Creatinine 0.7 Est GFR (CKD-EPI)AfAm 90.93 Est GFR (CKD-EPI)NonAf 78.45 Random Glucose 113 H Calcium 8.4 L Phosphorus 3.1 Magnesium 2.1 Total Bilirubin 0.7 AST 15 ALT 14 Alkaline Phosphatase 73 Total Protein 5.5 L Albumin 3.4 Active Medications Generic Name Dose Route Start Last Admin Trade Name Freq PRN Reason Stop Dose Admin Acetaminophen 650 mg 03/21/19 17:09 Tylenol - PO Q6H PRN Fever Or Pain Amlodipine Besylate 2.5 mg 03/21/19 17:07 Norvasc - PO DAILY PRN SBP >140 Atenolol 50 mg 03/21/19 22:00 03/22/19 14:09 Tenormin - PO 50 mg BID MARBELLA Administration Atorvastatin Calcium 10 mg 03/22/19 22:00 Lipitor - PO HS MARBELLA Diazepam 2 mg 03/21/19 17:56 03/22/19 14:30 Valium - PO 2 mg TID PRN Administration ANXIETY Docusate Sodium 100 mg 03/21/19 22:00 03/22/19 14:05 Colace - PO Not Given TID MARBELLA Lisinopril 40 mg 03/21/19 22:00 03/22/19 11:23 Prinivil PO 40 mg BID MARBELLA Administration Polyethylene Glycol 17 gm 03/21/19 19:21 Miralax (For Bowel Prep) - PO Q12H PRN CONSTIPATION ASSESSMENT/PLAN: Pt is an 88 y/o F with PMH HTN, HLD, ITP, CAD, anxiety who presented to ED with complaint of back pain and tingling in the fingers. In hospital, she was found to have thrombocytopenia. 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 ITP -plt dropped from 75 to 18 overnight -follows with Dr. Pritchett/Dr. Rust -Has received IVIG in the past. Most recently was given 4 day course of 40 mg daily Dexamethasone, which helped plts. Son states the dropped subsequently -usual plt count around 35, though 20 is not uncommon for her -will give steroids Dispo: We will continue to follow the patient. Thank you for this consultative opportunity. Visit type - Emergency Visit Emergency Visit: No - New Patient This patient is new to me today: Yes Date on this admission: 11/22/19 - Critical Care Critical Care patient: No ATTENDING PHYSICIAN STATEMENT I saw and evaluated the patient. I reviewed the resident's note and discussed the case with the resident. I agree with the resident's findings and plan as documented. SUBJECTIVE: OBJECTIVE: ASSESSMENT AND PLAN:
--- NOTE | 2019-03-22 17:52 | PN ---
Teaching Attending Note Name of Resident: Kaitlyn Souza ATTENDING PHYSICIAN STATEMENT I saw and evaluated the patient. I reviewed the resident's note and discussed the case with the resident. I agree with the resident's findings and plan as documented. SUBJECTIVE: Patient states that her urinary symptoms improved. Son is at bedside Vital Signs Temperature 98.2 F 03/22/19 18:00 Pulse Rate 70 03/22/19 18:00 Respiratory Rate 20 03/22/19 18:00 Blood Pressure 139/74 03/22/19 18:00 O2 Sat by Pulse Oximetry (%) 98 03/22/19 09:00 GENERAL: The patient is awake, alert, and fully oriented, in no acute distress. HEAD: Normal with no signs of trauma. EYES: PERRL, extraocular movements intact, sclera anicteric, conjunctiva clear. ENT: Ears normal, oropharynx clear without exudates, moist mucous membranes. NECK: Trachea midline, full range of motion, supple. LUNGS: Breath sounds equal, clear to auscultation bilaterally, no wheezes, no crackles, no accessory muscle use. HEART: Regular rate and rhythm, S1, S2 positive, robb 2/6 LSB no rub or gallop. ABDOMEN: Soft, nontender, nondistended, normoactive bowel sounds, no guarding, no rebound, no hepatosplenomegaly, no masses. EXTREMITIES: 2+ pulses, warm, well-perfused, no edema. NEUROLOGICAL: Cranial nerves II through XII grossly intact. Normal speech, gait not observed. PSYCH: Normal mood, normal affect. SKIN: Warm, dry, normal turgor, no rashes or lesions noted CBCD WBC 6.0 K/mm3 (4.0-10.0) 03/22/19 12:15 RBC 3.68 M/mm3 (3.60-5.2) 03/22/19 12:15 Hgb 11.7 GM/dL (10.7-15.3) 03/22/19 12:15 Hct 33.0 % (32.4-45.2) 03/22/19 12:15 MCV 89.7 fl (80-96) 03/22/19 12:15 MCHC 35.4 g/dl (32.0-36.0) 03/22/19 12:15 RDW 14.3 % (11.6-15.6) 03/22/19 12:15 Plt Count 18 K/MM3 (134-434) L* 03/22/19 12:15 MPV 10.6 fl (7.5-11.1) 03/22/19 12:15 CMP Sodium 136 mmol/L (136-145) 03/22/19 06:00 Potassium 3.0 mmol/L (3.5-5.1) L 03/22/19 06:00 Chloride 103 mmol/L (98-107) 03/22/19 06:00 Carbon Dioxide 26 mmol/L (21-32) 03/22/19 06:00 Anion Gap 7 MMOL/L (8-16) L 03/22/19 06:00 BUN 7.6 mg/dL (7-18) 03/22/19 06:00 Creatinine 0.7 mg/dL (0.55-1.3) 03/22/19 06:00 Random Glucose 113 mg/dL (74-106) H 03/22/19 06:00 Calcium 8.4 mg/dL (8.5-10.1) L 03/22/19 06:00 Total Bilirubin 0.7 mg/dL (0.2-1) 03/22/19 06:00 AST 15 U/L (15-37) 03/22/19 06:00 ALT 14 U/L (13-61) 03/22/19 06:00 Alkaline Phosphatase 73 U/L (45-117) 03/22/19 06:00 Total Protein 5.5 g/dl (6.4-8.2) L 03/22/19 06:00 Albumin 3.4 g/dl (3.4-5.0) 03/22/19 06:00 CARDIAC ENZYMES Creatine Kinase 130 U/L (26-192) 03/21/19 11:36 Troponin I < 0.02 ng/ml (0.00-0.05) 03/21/19 11:36 Current Medications Generic Name Dose Route Start Last Admin Trade Name Freq PRN Reason Stop Dose Admin Acetaminophen 650 mg 03/21/19 17:09 Tylenol - PO Q6H PRN Fever Or Pain Amlodipine Besylate 2.5 mg 03/21/19 17:07 Norvasc - PO DAILY PRN HYPERTENSION Atenolol 50 mg 11/20/19 22:00 Tenormin - PO BID MARBELLA Atorvastatin Calcium 10 mg 03/22/19 22:00 Lipitor - PO HS MARBELLA Diazepam 2 mg 03/21/19 17:56 Valium - PO TID PRN ANXIETY Sodium Chloride 1,000 mls @ 50 mls/hr 03/21/19 16:45 Normal Saline - IV 03/22/19 12:44 ASDIR MARBELLA Ceftriaxone Sodium 1 gm/ 50 mls @ 200 mls/hr 03/22/19 10:00 Dextrose IVPB DAILY [facility] Protocol Lisinopril 40 mg 03/21/19 22:00 Prinivil PO BID [facility] Home Medications Medication Instructions Recorded Amlodipine Besylate 2.5 mg PO DAILY PRN 05/11/18 Atenolol [Tenormin] 50 mg PO BID 05/11/18 Lisinopril [Prinivil -] 40 mg PO BID 05/11/18 Lovastatin 40 mg PO DAILY 05/11/18 Polyethylene Glycol 3350 [Miralax 17 gm PO BID PRN #1 btl 08/01/18 (For Bowel Prep) -] Diazepam 2 mg PO TID PRN 03/21/19 Microbiology 03/21/19 13:19 Urine - Urine - Catheterized Urine Culture - Final NO GROWTH OBTAINED ASSESSMENT AND PLAN: Patient is an 88 y/o female with PMHx of HTN, HLD, ITP, CAD, anxiety presents to the ED with complaints of weakness and back pain and was found to have a UTI #Hx of ITP with platelets of 75K--> 15--> repeat 16K today , will discontinue rocephin, will get hem/onc to see the patient. #Acute UTI with urinary symptoms,no further growth in urinary cx , will dc the iv antibiotic , received 2 doses of rocephin ,will repeat the platelets level and dc ivf # Acute Back Pain: CT scans show chronic thoracic and lumbar fractures, tylneol PRN for pain relief #HTN : continue amlodipine, atenolol, lisinopril #HLD: continue statin #Anxiety: continue home Diazepam PRN DVT px: SCds
[2019-03-22] MEDS ORDERED: DEXAMETHASONE SOD PHOSPHATE 20 MG/5 ML VIAL IVPB SCH (20:30)
[2019-03-22] MEDS: ATORVASTATIN CA 10 MG TABLET (FP) PO SCH ×2 (21:30→21:48)
[2019-03-23] MEDS: LISINOPRIL 20 MG TABLET (FP) PO SCH ×3 (01:45→21:55)
[2019-03-23] MEDS: diazePAM 2 MG TABLET PO PRN ×3 (04:57→21:55)
--- NOTE | 2019-03-23 06:46 | PN ---
Teaching Attending Note Name of Resident: Johny Ortiz ATTENDING PHYSICIAN STATEMENT I saw and evaluated the patient. I reviewed the resident's note and discussed the case with the resident. I agree with the resident's findings and plan as documented. ASSESSMENT AND PLAN: 88 y/o patient well known to our service with ITP, comes in with back pain and fatigue Also with skin bruising, petechiae No other mucosal bleeding Reports anxiety attacks Had received dexamethasone pulses intemittently in the past with good short term responses s/p IVIG and rituxan in the past will dose dexamethasone = protonix starting 03/23 CT T/L spine -- T5/7 vertebral compressions will follow
[2019-03-23] MEDS: DOCUSATE SODIUM 100 MG CAPSULE (FP) PO SCH ×3 (06:53→21:55)
[2019-03-23] MEDS: PANTOPRAZOLE 40 MG TABLET (FP) PO SCH (10:24)
[2019-03-23] MEDS: ATENOLOL 50 MG TABLET (FP) PO SCH (10:51)
[2019-03-23] MEDS: DEXAMETHASONE SOD PHOSPHATE 10 MG/1 ML VIAL IVPB SCH (12:11)
--- NOTE | 2019-03-23 13:49 | PN ---
Progress Note (short form) - Note Progress Note: Patient seen and examined Declined PT and blood letting this AM Seems to be agreeable to both at this time Has not as yet received first dose of steroids Numerous ecchymoses, petechiae on extremities Last Vital Signs Temp Pulse Resp BP Pulse Ox 98.5 F 74 20 173/77 H 96 03/23/19 06:00 03/23/19 06:00 03/23/19 06:00 03/23/19 06:00 03/22/19 21:00 HEENT: JOSÉ, EOM Intact Oropharynx: No thrush, No mucositis Cor: RSR, No murmurs, No gallops Lungs: decreased breath sounds , clear Abd: Soft, Normal bowel sounds, No organomegaly Ext:No significant edema Skin: No rashes, Integument intact, ecchymoses extremities CBC, BMP 03/22/19 12:15 03/22/19 06:00 Current Medications Generic Name Dose Route Start Last Admin Trade Name Freq PRN Reason Stop Dose Admin Acetaminophen 650 mg 03/21/19 17:09 Tylenol - PO Q6H PRN Fever Or Pain Amlodipine Besylate 2.5 mg 03/21/19 17:07 Norvasc - PO DAILY PRN SBP >140 Atenolol 50 mg 03/23/19 10:37 Tenormin - PO BID MARBELLA Atorvastatin Calcium 10 mg 03/22/19 22:00 03/22/19 21:48 Lipitor - PO Not Given HS MARBELLA Dexamethasone Sodium Phosphate 20 mg 03/23/19 10:00 Decadron Injection - IVPB 03/26/19 10:01 DAILY MARBELLA Diazepam 2 mg 03/21/19 17:56 03/23/19 04:57 Valium - PO 2 mg TID PRN Administration ANXIETY Docusate Sodium 100 mg 03/21/19 22:00 03/23/19 06:53 Colace - PO Not Given TID MARBELLA Lisinopril 40 mg 03/21/19 22:00 03/23/19 10:24 Prinivil PO 40 mg BID MARBELLA Administration Pantoprazole Sodium 40 mg 03/23/19 10:00 03/23/19 10:24 Protonix - PO 40 mg DAILY MARBELLA Administration Polyethylene Glycol 17 gm 03/21/19 19:21 Miralax (For Bowel Prep) - PO Q12H PRN CONSTIPATION Impression: ITP - in general responds to decadron 40 p.o. x 4 days as out patient IV - decadron 20 ordered - may need to push dose up Labs pending Labile hypertension Hypokalemia Plan decadron - 20 mg IV x 4 days Daily CBC's If no response- increase in dosage Needs P.T. - now seems agreeable Replete K+
[2019-03-23] MEDS ORDERED: POTASSIUM CHLORIDE TABS 20 MEQ TABLET.ER (FP) PO ONE (14:05)
[2019-03-23 14:38] LABS: BASO % 1.9 % (0-2.0); EOS % 2.9 % (0-4.5); HEMATOCRIT 34.4 % (32.4-45.2); HEMOGLOBIN 11.9 GM/dL (10.7-15.3); LYMPH % 22.7 % (8-40); MCH 31.2 pg (25.7-33.7); MCHC 34.7 g/dl (32.0-36.0); MEAN CELL VOLUME 89.9 fl (80-96); MEAN PLT VOLUME 9.8 fl (7.5-11.1); MONO % 10.4 % (3.8-10.2); NEUT % 62.1 % (42.8-82.8); RBC 3.83 M/mm3 (3.60-5.2); RDW 14.5 % (11.6-15.6); WHITE BLOOD COUNT 4.7 K/mm3 (4.0-10.0)
[2019-03-23 14:45] LABS: PLATELET COUNT 15 K/MM3 (134-434)
[2019-03-23 15:08] LABS: ALBUMIN 3.6 g/dl (3.4-5.0); BILIRUBIN,TOTAL 0.9 mg/dL (0.2-1); BLOOD UREA NITROGEN 6.4 mg/dL (7-18); CALCIUM 9.3 mg/dL (8.5-10.1); CREATININE 0.6 mg/dL (0.55-1.3); POTASSIUM 3.2 mmol/L (3.5-5.1); TOT PROT 5.9 g/dl (6.4-8.2)
[2019-03-23] MEDS: KCL 10 MEQ IVPB 10 MEQ/100 ML INFUS.BAG IVPB SCH ×3 (15:45→18:59)
--- NOTE | 2019-03-23 16:10 | PN ---
Physical Exam: SUBJECTIVE: Patient seen and examined. She reports being nervous about receiving steroids and wanted son to be present when administered. She denies fever, chills, chest pain, abdominal pain, n/v. OBJECTIVE: Vital Signs Period Temp Pulse Resp BP Sys/May Pulse Ox Last 24 Hr 97.7 F-98.5 F 70-82 20-20 139-173/73-85 96 GENERAL: The patient is awake, alert, and fully oriented, in no acute distress. HEAD: Normal with no signs of trauma. EYES: PERRL, extraocular movements intact, conjunctiva clear. ENT: Ears normal, nares patent, moist mucous membranes. NECK: Trachea midline, full range of motion, supple. LUNGS: Clear to auscultation bilaterally HEART: Regular rate and rhythm, 2/6 systolic murmur ABDOMEN: Soft, nontender, nondistended, normoactive bowel sounds EXTREMITIES: Warm, well-perfused, no edema. NEUROLOGICAL: Cranial nerves II through XII grossly intact. Normal speech, gait not observed. PSYCH: Mildly anxious SKIN: Warm, dry, normal turgor, diffuse ecchymosis on arms, and petechiae on center of chest, and discoloration on forehead Laboratory Results - last 24 hr 03/23/19 03/23/19 14:00 14:00 WBC 4.7 RBC 3.83 Hgb 11.9 Hct 34.4 MCV 89.9 MCH 31.2 MCHC 34.7 RDW 14.5 Plt Count 15 L* MPV 9.8 Absolute Neuts (auto) 2.9 Neutrophils % 62.1 Lymphocytes % 22.7 D Monocytes % 10.4 H Eosinophils % 2.9 D Basophils % 1.9 Nucleated RBC % 0 Sodium 137 Potassium 3.2 L Chloride 101 Carbon Dioxide 28 Anion Gap 8 BUN 6.4 L Creatinine 0.6 Est GFR (CKD-EPI)AfAm 95.66 Est GFR (CKD-EPI)NonAf 82.53 Random Glucose 115 H Calcium 9.3 Total Bilirubin 0.9 AST 22 ALT 17 Alkaline Phosphatase 76 Total Protein 5.9 L Albumin 3.6 Active Medications Generic Name Dose Route Start Last Admin Trade Name Freq PRN Reason Stop Dose Admin Acetaminophen 650 mg 03/21/19 17:09 Tylenol - PO Q6H PRN Fever Or Pain Amlodipine Besylate 2.5 mg 03/21/19 17:07 Norvasc - PO DAILY PRN SBP >140 Atenolol 50 mg 03/23/19 10:37 Tenormin - PO BID MARBELLA Atorvastatin Calcium 10 mg 03/22/19 22:00 03/22/19 21:48 Lipitor - PO Not Given HS MARBELLA Dexamethasone Sodium Phosphate 20 mg 03/23/19 10:00 Decadron Injection - IVPB 03/26/19 10:01 DAILY MARBELLA Diazepam 2 mg 03/21/19 17:56 03/23/19 15:44 Valium - PO 2 mg TID PRN Administration ANXIETY Docusate Sodium 100 mg 03/21/19 22:00 03/23/19 14:43 Colace - PO 100 mg TID MARBELLA Administration Potassium Chloride 10 meq in 100 mls @ 100 mls/hr 03/23/19 15:15 03/23/19 15: 45 Potassium Chloride 10 Meq Premix Ivpb - IVPB 03/23/19 18:14 100 mls/hr Q60M MARBELLA Administration Lisinopril 40 mg 03/21/19 22:00 03/23/19 10:24 Prinivil PO 40 mg BID MARBELLA Administration Pantoprazole Sodium 40 mg 03/23/19 10:00 03/23/19 10:24 Protonix - PO 40 mg DAILY MARBELLA Administration Polyethylene Glycol 17 gm 03/21/19 19:21 Miralax (For Bowel Prep) - PO Q12H PRN CONSTIPATION ASSESSMENT/PLAN: Ms. Gutierrez is an 88y/o female with ITP, HTN, HLD, anxiety, and CAD who presents with back pain and weakness. #ITP Plt 15 -heme/onc following- to begin decadron administration with patient's permission #back pain, improved No UTI. -encourage PT #hypokalemia 3.2. -replete -monitor labs #anxiety -diazepam PRN #HTN -lisinopril, atenolol, amlodipine #HLD -statin DVT Ppx SCDs FEN PO fluids monitor K sodium controlled diet dispo med/surg monitoring platelets Visit type - Emergency Visit Emergency Visit: Yes ED Registration Date: 03/21/19 Care time: The patient presented to the Emergency Department on the above date and was hospitalized for further evaluation of their emergent condition. - New Patient This patient is new to me today: No - Critical Care Critical Care patient: No - Discharge Referral Referred to [facility] Med P.C.: No ATTENDING PHYSICIAN STATEMENT I saw and evaluated the patient. I reviewed the resident's note and discussed the case with the resident. I agree with the resident's findings and plan as documented. SUBJECTIVE: OBJECTIVE: ASSESSMENT AND PLAN:
--- NOTE | 2019-03-23 17:12 | PN ---
Physical Exam: SUBJECTIVE: Patient seen and examined at bedside. No acute events. OBJECTIVE: Vital Signs Period Temp Pulse Resp BP Sys/May Pulse Ox Last 24 Hr 97.7 F-98.5 F 70-82 20-20 139-173/73-85 96 Gen: AAOx3, NAD HEENT: few scattered petichiae on forehead, otherwise, NCAT, EOMI Neck: no jvd Cardio: hyperdynamic sustained PMI L midclavicular line, rrr, norm s1s2, no mrg Pulm: cta b/l Breast: no nodules/lumps noted Abd: mildly distended, normal BS, nontender, no organomegally Ext: 2+ L DP, 1+ R DP, no edema, several echymotic papules on L forearm at blood draw sites Laboratory Results - last 24 hr 03/23/19 03/23/19 14:00 14:00 WBC 4.7 RBC 3.83 Hgb 11.9 Hct 34.4 MCV 89.9 MCH 31.2 MCHC 34.7 RDW 14.5 Plt Count 15 L* MPV 9.8 Absolute Neuts (auto) 2.9 Neutrophils % 62.1 Lymphocytes % 22.7 D Monocytes % 10.4 H Eosinophils % 2.9 D Basophils % 1.9 Nucleated RBC % 0 Sodium 137 Potassium 3.2 L Chloride 101 Carbon Dioxide 28 Anion Gap 8 BUN 6.4 L Creatinine 0.6 Est GFR (CKD-EPI)AfAm 95.66 Est GFR (CKD-EPI)NonAf 82.53 Random Glucose 115 H Calcium 9.3 Total Bilirubin 0.9 AST 22 ALT 17 Alkaline Phosphatase 76 Total Protein 5.9 L Albumin 3.6 Active Medications Generic Name Dose Route Start Last Admin Trade Name Freq PRN Reason Stop Dose Admin Acetaminophen 650 mg 03/21/19 17:09 Tylenol - PO Q6H PRN Fever Or Pain Amlodipine Besylate 2.5 mg 03/21/19 17:07 Norvasc - PO DAILY PRN SBP >140 Atenolol 50 mg 03/23/19 10:37 Tenormin - PO BID MARBELLA Atorvastatin Calcium 10 mg 03/22/19 22:00 03/22/19 21:48 Lipitor - PO Not Given HS MARBELLA Dexamethasone Sodium Phosphate 20 mg 03/23/19 10:00 Decadron Injection - IVPB 03/26/19 10:01 DAILY MARBELLA Diazepam 2 mg 03/21/19 17:56 03/23/19 15:44 Valium - PO 2 mg TID PRN Administration ANXIETY Docusate Sodium 100 mg 03/21/19 22:00 03/23/19 14:43 Colace - PO 100 mg TID MARBELLA Administration Potassium Chloride 10 meq in 100 mls @ 100 mls/hr 03/23/19 15:15 03/23/19 15: 45 Potassium Chloride 10 Meq Premix Ivpb - IVPB 03/23/19 18:14 100 mls/hr Q60M MARBELLA Administration Lisinopril 40 mg 03/21/19 22:00 03/23/19 10:24 Prinivil PO 40 mg BID MARBELLA Administration Pantoprazole Sodium 40 mg 03/23/19 10:00 03/23/19 10:24 Protonix - PO 40 mg DAILY MARBELLA Administration Polyethylene Glycol 17 gm 03/21/19 19:21 Miralax (For Bowel Prep) - PO Q12H PRN CONSTIPATION ASSESSMENT/PLAN: Pt is an 88 y/o F with PMH HTN, HLD, ITP, CAD, anxiety who presented to ED with complaint of back pain and tingling in the fingers. In hospital, she was found to have thrombocytopenia. 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 ITP -thrombocytopenia -follows with Dr. Pritchett/Dr. Rust -Has received IVIG in the past. Most recently was given 4 day course of 40 mg daily Dexamethasone, which helped plts. Son states the dropped subsequently -usual plt count around 35, though 20 is not uncommon for her -will give steroids Visit type - Emergency Visit Emergency Visit: No - New Patient This patient is new to me today: No - Critical Care Critical Care patient: No ATTENDING PHYSICIAN STATEMENT I saw and evaluated the patient. I reviewed the resident's note and discussed the case with the resident. I agree with the resident's findings and plan as documented. SUBJECTIVE: OBJECTIVE: ASSESSMENT AND PLAN:
--- NOTE | 2019-03-23 20:17 | PN ---
Teaching Attending Note Name of Resident: Kaitlyn Souza ATTENDING PHYSICIAN STATEMENT I saw and evaluated the patient. I reviewed the resident's note and discussed the case with the resident. I agree with the resident's findings and plan as documented. SUBJECTIVE: Patient has no symptoms comfortable with no acute distress. Vital Signs Temperature 97.6 F 03/23/19 18:00 Pulse Rate 70 03/23/19 18:00 Respiratory Rate 20 03/23/19 18:00 Blood Pressure 136/77 03/23/19 18:00 O2 Sat by Pulse Oximetry (%) 96 03/23/19 09:00 GENERAL: The patient is awake, alert, and fully oriented, in no acute distress. HEAD: Normal with no signs of trauma. EYES: PERRL, extraocular movements intact, sclera anicteric, conjunctiva clear. ENT: Ears normal, oropharynx clear without exudates, moist mucous membranes. NECK: Trachea midline, full range of motion, supple. LUNGS: Breath sounds equal, clear to auscultation bilaterally, no wheezes, no crackles, no accessory muscle use. HEART: Regular rate and rhythm, S1, S2 positive, robb 2/6 LSB no rub or gallop. ABDOMEN: Soft, nontender, nondistended, normoactive bowel sounds, no guarding, no rebound, no hepatosplenomegaly, no masses. EXTREMITIES: 2+ pulses, warm, well-perfused, no edema. NEUROLOGICAL: Cranial nerves II through XII grossly intact. Normal speech, gait not observed. PSYCH: Normal mood, normal affect. SKIN: Warm, dry, normal turgor, no rashes or lesions noted CBCD WBC 4.7 K/mm3 (4.0-10.0) 03/23/19 14:00 RBC 3.83 M/mm3 (3.60-5.2) 03/23/19 14:00 Hgb 11.9 GM/dL (10.7-15.3) 03/23/19 14:00 Hct 34.4 % (32.4-45.2) 03/23/19 14:00 MCV 89.9 fl (80-96) 03/23/19 14:00 MCHC 34.7 g/dl (32.0-36.0) 03/23/19 14:00 RDW 14.5 % (11.6-15.6) 03/23/19 14:00 Plt Count 15 K/MM3 (134-434) L* 03/23/19 14:00 MPV 9.8 fl (7.5-11.1) 03/23/19 14:00 CMP Sodium 137 mmol/L (136-145) 03/23/19 14:00 Potassium 3.2 mmol/L (3.5-5.1) L 03/23/19 14:00 Chloride 101 mmol/L (98-107) 03/23/19 14:00 Carbon Dioxide 28 mmol/L (21-32) 03/23/19 14:00 Anion Gap 8 MMOL/L (8-16) 03/23/19 14:00 BUN 6.4 mg/dL (7-18) L 03/23/19 14:00 Creatinine 0.6 mg/dL (0.55-1.3) 03/23/19 14:00 Random Glucose 115 mg/dL (74-106) H 03/23/19 14:00 Calcium 9.3 mg/dL (8.5-10.1) 03/23/19 14:00 Total Bilirubin 0.9 mg/dL (0.2-1) 03/23/19 14:00 AST 22 U/L (15-37) 03/23/19 14:00 ALT 17 U/L (13-61) 03/23/19 14:00 Alkaline Phosphatase 76 U/L (45-117) 03/23/19 14:00 Total Protein 5.9 g/dl (6.4-8.2) L 03/23/19 14:00 Albumin 3.6 g/dl (3.4-5.0) 03/23/19 14:00 CARDIAC ENZYMES Creatine Kinase 130 U/L (26-192) 03/21/19 11:36 Troponin I < 0.02 ng/ml (0.00-0.05) 03/21/19 11:36 Current Medications Generic Name Dose Route Start Last Admin Trade Name Freq PRN Reason Stop Dose Admin Acetaminophen 650 mg 03/21/19 17:09 Tylenol - PO Q6H PRN Fever Or Pain Amlodipine Besylate 2.5 mg 03/21/19 17:07 Norvasc - PO DAILY PRN SBP >140 Atenolol 50 mg 03/23/19 10:37 Tenormin - PO BID [facility] Atorvastatin Calcium 10 mg 03/22/19 22:00 03/22/19 21:48 Lipitor - PO Not Given HS [facility] Dexamethasone Sodium Phosphate 20 mg 03/23/19 10:00 03/23/19 12:11 Decadron Injection - IVPB 03/26/19 10:01 20 mg DAILY MARBELLA Administration Diazepam 2 mg 03/21/19 17:56 03/23/19 15:44 Valium - PO 2 mg TID PRN Administration ANXIETY Docusate Sodium 100 mg 03/21/19 22:00 03/23/19 14:43 Colace - PO 100 mg TID MARBELLA Administration Lisinopril 40 mg 03/21/19 22:00 03/23/19 10:24 Prinivil PO 40 mg BID MARBELLA Administration Pantoprazole Sodium 40 mg 03/23/19 10:00 03/23/19 10:24 Protonix - PO 40 mg DAILY MARBELLA Administration Polyethylene Glycol 17 gm 03/21/19 19:21 Miralax (For Bowel Prep) - PO Q12H PRN CONSTIPATION Home Medications Medication Instructions Recorded Amlodipine Besylate 2.5 mg PO DAILY PRN 05/11/18 Atenolol [Tenormin] 50 mg PO BID 05/11/18 Lisinopril [Prinivil -] 40 mg PO BID 05/11/18 Lovastatin 40 mg PO DAILY 05/11/18 Polyethylene Glycol 3350 [Miralax 17 gm PO BID PRN #1 btl 08/01/18 (For Bowel Prep) -] Diazepam 2 mg PO TID PRN 03/21/19 Docusate Sodium [Colace] 100 mg PO TID 03/21/19 Microbiology 03/21/19 13:19 Urine - Urine - Catheterized Urine Culture - Final NO GROWTH OBTAINED ASSESSMENT AND PLAN: Patient is an 88 y/o female with PMHx of HTN, HLD, ITP, CAD, anxiety presents to the ED with complaints of weakness and back pain and was found to have a UTI #ITP with platelets of 75K--> 15--> 16K-->15K today , off rocephin now, hem/ onc on the case. as per hem/onc decadron - 20 mg IV x 2/4 days ,Daily CBC's If no response- increase in dosage as per hem/onc, then decadron 40 p.o. x 4 days as out patient, will continue to monitor #Acute UTI s/p Rocephin , will dc the antibiotic, since no urinary cx is negative and the patient has neg. symptoms, will dc the iv antibiotic # Acute Back Pain: CT scans show chronic thoracic and lumbar fractures, tylneol PRN for pain relief #Hypokalemia: replete #HTN : continue amlodipine, atenolol, lisinopril #HLD: continue statin #Anxiety: continue home Diazepam PRN DVT px: SCds
[2019-03-23] MEDS: ATENOLOL 25 MG TABLET (FP) PO SCH (21:54)
[2019-03-23] MEDS: ATORVASTATIN CA 10 MG TABLET (FP) PO SCH (21:55)
[2019-03-24] MEDS: DOCUSATE SODIUM 100 MG CAPSULE (FP) PO SCH ×3 (09:07→21:32)
[2019-03-24] MEDS: LISINOPRIL 20 MG TABLET (FP) PO SCH ×2 (09:24→21:32)
[2019-03-24] MEDS: ATENOLOL 25 MG TABLET (FP) PO SCH ×2 (09:24→21:31)
[2019-03-24] MEDS: PANTOPRAZOLE 40 MG TABLET (FP) PO SCH (09:24)
[2019-03-24] MEDS: DEXAMETHASONE SOD PHOSPHATE 10 MG/1 ML VIAL IVPB SCH (09:31)
[2019-03-24 09:50] LABS: BASO % 0.1 % (0-2.0); HEMATOCRIT 34.3 % (32.4-45.2); HEMOGLOBIN 12.2 GM/dL (10.7-15.3); LYMPH % 14.7 % (8-40); MCH 31.5 pg (25.7-33.7); MCHC 35.5 g/dl (32.0-36.0); MEAN CELL VOLUME 88.9 fl (80-96); MEAN PLT VOLUME 10.5 fl (7.5-11.1); MONO % 2.5 % (3.8-10.2); NEUT % 82.7 % (42.8-82.8); RBC 3.85 M/mm3 (3.60-5.2); RDW 14.1 % (11.6-15.6); WHITE BLOOD COUNT 3.4 K/mm3 (4.0-10.0)
[2019-03-24 10:01] LABS: PLATELET COUNT 15 K/MM3 (134-434)
[2019-03-24 10:20] LABS: ALBUMIN 3.6 g/dl (3.4-5.0); BILIRUBIN,TOTAL 0.9 mg/dL (0.2-1); BLOOD UREA NITROGEN 9.4 mg/dL (7-18); CALCIUM 9.3 mg/dL (8.5-10.1); CREATININE 0.6 mg/dL (0.55-1.3); PHOSPHOROUS 3.7 mg/dL (2.5-4.9); POTASSIUM 4.6 mmol/L (3.5-5.1); TOT PROT 6.1 g/dl (6.4-8.2)
[2019-03-24] MEDS: diazePAM 2 MG TABLET PO PRN ×2 (10:32→21:31)
--- NOTE | 2019-03-24 10:39 | PN ---
Progress Note (short form) - Note Progress Note: Seen in follow up. No events overnight. Denies pain. Inpatient meds reviewed: Current Medications Acetaminophen (Tylenol -) 650 mg PO Q6H PRN PRN Reason: Fever Or Pain Amlodipine Besylate (Norvasc -) 2.5 mg PO DAILY PRN PRN Reason: SBP >140 Atenolol (Tenormin -) 50 mg PO BID [facility] Last Admin: 03/24/19 09:24 Dose: 50 mg Atorvastatin Calcium (Lipitor -) 10 mg PO HS [facility] Last Admin: 03/23/19 21:55 Dose: 10 mg Dexamethasone Sodium Phosphate (Decadron Injection -) 20 mg IVPB DAILY [facility] Stop: 03/26/19 10:01 Last Admin: 03/24/19 09:31 Dose: 20 mg Diazepam (Valium -) 2 mg PO TID PRN PRN Reason: ANXIETY Last Admin: 03/24/19 10:32 Dose: 2 mg Docusate Sodium (Colace -) 100 mg PO TID [facility] Last Admin: 03/24/19 09:07 Dose: 100 mg Lisinopril (Prinivil) 40 mg PO BID [facility] Last Admin: 03/24/19 09:24 Dose: 40 mg Pantoprazole Sodium (Protonix -) 40 mg PO DAILY [facility] Last Admin: 03/24/19 09:24 Dose: 40 mg Polyethylene Glycol (Miralax (For Bowel Prep) -) 17 gm PO Q12H PRN PRN Reason: CONSTIPATION Current Medications Acetaminophen (Tylenol -) 650 mg PO Q6H PRN PRN Reason: Fever Or Pain Amlodipine Besylate (Norvasc -) 2.5 mg PO DAILY PRN PRN Reason: SBP >140 Atenolol (Tenormin -) 50 mg PO BID [facility] Last Admin: 03/24/19 09:24 Dose: 50 mg Atorvastatin Calcium (Lipitor -) 10 mg PO HS [facility] Last Admin: 03/23/19 21:55 Dose: 10 mg Dexamethasone Sodium Phosphate (Decadron Injection -) 20 mg IVPB DAILY [facility] Stop: 03/26/19 10:01 Last Admin: 03/24/19 09:31 Dose: 20 mg Diazepam (Valium -) 2 mg PO TID PRN PRN Reason: ANXIETY Last Admin: 03/24/19 10:32 Dose: 2 mg Docusate Sodium (Colace -) 100 mg PO TID [facility] Last Admin: 03/24/19 09:07 Dose: 100 mg Lisinopril (Prinivil) 40 mg PO BID [facility] Last Admin: 03/24/19 09:24 Dose: 40 mg Pantoprazole Sodium (Protonix -) 40 mg PO DAILY [facility] Last Admin: 03/24/19 09:24 Dose: 40 mg Polyethylene Glycol (Miralax (For Bowel Prep) -) 17 gm PO Q12H PRN PRN Reason: CONSTIPATION On Examination: General: In no acute distress, sitting in bed. Extremities: No pallor or icterus. No pedal edema. CVS: S1, S2 Chest: breathing comfortably, clear Abdomen: non-distended, non-tender Neuro: Alert, oriented, non-focal Skin: ecchymosis L wrist, ?petechiae chest wall. Labs: CBC, BMP 03/24/19 07:32 03/24/19 07:32 Assessment. History of ITP, presents with several weeks back pain - found to have chronic T5 compression fracture, and pyuria - treated empirically for UTI. Surprising drop in platelets noted on day after admission - 75 -> 17 - presumed to be immune mediated and started empiric steroids yesterday. Usually responds well - no response yet - will continue to follow closely.
--- NOTE | 2019-03-24 11:54 | PN ---
Progress Note (short form) - Note Progress Note: Patient is comfortable, son is at bedside. Vital Signs Temperature 98 F 03/24/19 09:40 Pulse Rate 85 03/24/19 09:40 Respiratory Rate 20 03/24/19 09:40 Blood Pressure 148/88 03/24/19 09:40 O2 Sat by Pulse Oximetry (%) 95 03/24/19 09:00 GENERAL: The patient is awake, alert, and fully oriented, in no acute distress. HEAD: Normal with no signs of trauma. EYES: PERRL, extraocular movements intact, sclera anicteric, conjunctiva clear. ENT: Ears normal, oropharynx clear without exudates, moist mucous membranes. NECK: Trachea midline, full range of motion, supple. LUNGS: Breath sounds equal, clear to auscultation bilaterally, no wheezes, no crackles, no accessory muscle use. HEART: Regular rate and rhythm, S1, S2 positive, robb 2/6 LSB no rub or gallop. ABDOMEN: Soft, nontender, nondistended, normoactive bowel sounds, no guarding, no rebound, no hepatosplenomegaly, no masses. EXTREMITIES: 2+ pulses, warm, well-perfused, no edema. NEUROLOGICAL: Cranial nerves II through XII grossly intact. Normal speech, gait not observed. PSYCH: Normal mood, normal affect. SKIN: Warm, dry, normal turgor, no rashes or lesions noted CBCD WBC 3.4 K/mm3 (4.0-10.0) L 03/24/19 07:32 RBC 3.85 M/mm3 (3.60-5.2) 03/24/19 07:32 Hgb 12.2 GM/dL (10.7-15.3) 03/24/19 07:32 Hct 34.3 % (32.4-45.2) 03/24/19 07:32 MCV 88.9 fl (80-96) 03/24/19 07:32 MCHC 35.5 g/dl (32.0-36.0) 03/24/19 07:32 RDW 14.1 % (11.6-15.6) 03/24/19 07:32 Plt Count 15 K/MM3 (134-434) L* 03/24/19 07:32 MPV 10.5 fl (7.5-11.1) 03/24/19 07:32 CMP Sodium 134 mmol/L (136-145) L 03/24/19 07:32 Potassium 4.6 mmol/L (3.5-5.1) 03/24/19 07:32 Chloride 100 mmol/L (98-107) 03/24/19 07:32 Carbon Dioxide 27 mmol/L (21-32) 03/24/19 07:32 Anion Gap 7 MMOL/L (8-16) L 03/24/19 07:32 BUN 9.4 mg/dL (7-18) 03/24/19 07:32 Creatinine 0.6 mg/dL (0.55-1.3) 03/24/19 07:32 Random Glucose 110 mg/dL (74-106) H 03/24/19 07:32 Calcium 9.3 mg/dL (8.5-10.1) 03/24/19 07:32 Total Bilirubin 0.9 mg/dL (0.2-1) 03/24/19 07:32 AST 18 U/L (15-37) 03/24/19 07:32 ALT 15 U/L (13-61) 03/24/19 07:32 Alkaline Phosphatase 77 U/L (45-117) 03/24/19 07:32 Total Protein 6.1 g/dl (6.4-8.2) L 03/24/19 07:32 Albumin 3.6 g/dl (3.4-5.0) 03/24/19 07:32 CARDIAC ENZYMES Creatine Kinase 130 U/L (26-192) 03/21/19 11:36 Troponin I < 0.02 ng/ml (0.00-0.05) 03/21/19 11:36 Current Medications Generic Name Dose Route Start Last Admin Trade Name Freq PRN Reason Stop Dose Admin Acetaminophen 650 mg 03/21/19 17:09 Tylenol - PO Q6H PRN Fever Or Pain Amlodipine Besylate 2.5 mg 03/21/19 17:07 Norvasc - PO DAILY PRN SBP >140 Atenolol 50 mg 03/23/19 10:37 03/24/19 09:24 Tenormin - PO 50 mg BID [facility]A Administration Atorvastatin Calcium 10 mg 03/22/19 22:00 03/23/19 21:55 Lipitor - PO 10 mg HS [facility]LLA Administration Dexamethasone Sodium Phosphate 20 mg 03/23/19 10:00 03/24/19 09:31 Decadron Injection - IVPB 03/26/19 10:01 20 mg DAILY [facility]BELLA Administration Diazepam 2 mg 03/21/19 17:56 03/24/19 10:32 Valium - PO 2 mg TID PRN Administration ANXIETY Docusate Sodium 100 mg 03/21/19 22:00 03/24/19 09:07 Colace - PO 100 mg TID MARBELLA Administration Lisinopril 40 mg 03/21/19 22:00 03/24/19 09:24 Prinivil PO 40 mg BID MARBELLA Administration Pantoprazole Sodium 40 mg 03/23/19 10:00 03/24/19 09:24 Protonix - PO 40 mg DAILY [facility]BELLA Administration Polyethylene Glycol 17 gm 03/21/19 19:21 Miralax (For Bowel Prep) - PO Q12H PRN CONSTIPATION Home Medications Medication Instructions Recorded Amlodipine Besylate 2.5 mg PO DAILY PRN 05/11/18 Atenolol [Tenormin] 50 mg PO BID 05/11/18 Lisinopril [Prinivil -] 40 mg PO BID 05/11/18 Lovastatin 40 mg PO DAILY 05/11/18 Polyethylene Glycol 3350 [Miralax 17 gm PO BID PRN #1 btl 08/01/18 (For Bowel Prep) -] Diazepam 2 mg PO TID PRN 03/21/19 Docusate Sodium [Colace] 100 mg PO TID 03/21/19 03/21/19 13:19 Urine - Urine - Catheterized Urine Culture - Final NO GROWTH OBTAINED ASSESSMENT AND PLAN: Patient is an 88 y/o female with PMHx of HTN, HLD, ITP, CAD, anxiety presents to the ED with complaints of weakness and back pain and was found to have a UTI #ITP with platelets of 75K--> 15--> 16K-->15K today , off rocephin now, hem/ onc on the case. as per hem/onc decadron - 20 mg IV x 2/4 days ,Daily CBC's If no response- increase in dosage as per hem/onc, then decadron 40 p.o. x 4 days as out patient #Acute UTI s/p Rocephin , will dc the antibiotic, since no urinary cx is negative and the patient has neg. symptoms, will dc the iv antibiotic # Acute Back Pain: CT scans show chronic thoracic and lumbar fractures, tylneol PRN for pain relief #Hypokalemia: repleted improved. #HTN : continue amlodipine, atenolol, lisinopril #HLD: continue statin #Anxiety: continue home Diazepam PRN DVT px: SCds Visit type - Emergency Visit Emergency Visit: Yes ED Registration Date: 03/21/19 Care time: The patient presented to the Emergency Department on the above date and was hospitalized for further evaluation of their emergent condition. - New Patient This patient is new to me today: No - Critical Care Critical Care patient: No - Discharge Referral Referred to [facility] Med P.C.: No
[2019-03-24] MEDS: ATORVASTATIN CA 10 MG TABLET (FP) PO SCH (21:32)
[2019-03-25] MEDS: diazePAM 2 MG TABLET PO PRN ×2 (05:35→22:28)
[2019-03-25] MEDS: ACETAMINOPHEN 325 MG TABLET (FP) PO PRN (05:35)
[2019-03-25] MEDS: DOCUSATE SODIUM 100 MG CAPSULE (FP) PO SCH ×3 (06:13→22:27)
[2019-03-25 10:47] LABS: BASO % 0.1 % (0-2.0); EOS % 0.1 % (0-4.5); HEMATOCRIT 34.3 % (32.4-45.2); HEMOGLOBIN 12.2 GM/dL (10.7-15.3); LYMPH % 9.9 % (8-40); MCH 31.9 pg (25.7-33.7); MCHC 35.5 g/dl (32.0-36.0); MEAN CELL VOLUME 89.8 fl (80-96); MEAN PLT VOLUME 11.9 fl (7.5-11.1); MONO % 9.6 % (3.8-10.2); NEUT % 80.3 % (42.8-82.8); RBC 3.82 M/mm3 (3.60-5.2); RDW 14.1 % (11.6-15.6); WHITE BLOOD COUNT 9.6 K/mm3 (4.0-10.0)
[2019-03-25] MEDS ORDERED: PT OWN MED DRAWER 7, Y5N ONE ×2 (10:48→11:49)
[2019-03-25] MEDS: PANTOPRAZOLE 40 MG TABLET (FP) PO SCH (10:55)
[2019-03-25] MEDS: ATENOLOL 25 MG TABLET (FP) PO SCH ×2 (10:56→22:27)
[2019-03-25] MEDS: LISINOPRIL 20 MG TABLET (FP) PO SCH ×2 (10:56→22:27)
[2019-03-25 11:03] LABS: PLATELET COUNT 31 K/MM3 (134-434)
[2019-03-25] MEDS: DEXAMETHASONE SOD PHOSPHATE 10 MG/1 ML VIAL IVPB SCH (12:49)
--- NOTE | 2019-03-25 14:00 | PN ---
Progress Note (short form) - Note Progress Note: Seen in follow up. No events overnight. Feels well. Expected neuropsychiatric effects of high-dose steroids - tolerated. Denies pain. Inpatient meds reviewed: Acetaminophen (Tylenol -) 650 mg PO Q6H PRN PRN Reason: Fever Or Pain Last Admin: 03/25/19 05:35 Dose: 650 mg Amlodipine Besylate (Norvasc -) 2.5 mg PO DAILY PRN PRN Reason: SBP >140 Atenolol (Tenormin -) 50 mg PO BID [facility] Last Admin: 03/25/19 10:56 Dose: 50 mg Atorvastatin Calcium (Lipitor -) 10 mg PO HS [facility] Last Admin: 03/24/19 21:32 Dose: Not Given Dexamethasone Sodium Phosphate (Decadron Injection -) 20 mg IVPB DAILY [facility] Stop: 03/26/19 10:01 Last Admin: 03/25/19 12:49 Dose: 20 mg Diazepam (Valium -) 2 mg PO TID PRN PRN Reason: ANXIETY Last Admin: 03/25/19 05:35 Dose: 2 mg Docusate Sodium (Colace -) 100 mg PO TID [facility] Last Admin: 03/25/19 06:13 Dose: Not Given Lisinopril (Prinivil) 40 mg PO BID [facility] Last Admin: 03/25/19 10:56 Dose: 40 mg Pantoprazole Sodium (Protonix -) 40 mg PO DAILY [facility] Last Admin: 03/25/19 10:55 Dose: 40 mg Polyethylene Glycol (Miralax (For Bowel Prep) -) 17 gm PO Q12H PRN PRN Reason: CONSTIPATION On Examination: Last Vital Signs Temp Pulse Resp BP Pulse Ox 97.6 F 80 20 155/83 98 03/25/19 06:05 03/25/19 06:05 03/25/19 06:05 03/25/19 06:05 03/24/19 21:00 General: In no acute distress, sitting in bed. Extremities: No pallor or icterus. No pedal edema. Chest: breathing comfortably Abdomen: non-distended Neuro: Alert, oriented, non-focal Skin: ecchymosis L wrist, ?petechiae chest wall. Labs: CBC, BMP 03/25/19 10:20 03/24/19 07:32 Assessment. History of ITP, presents with several weeks back pain - found to have chronic T5 compression fracture, and pyuria - treated empirically for UTI. Surprising drop in platelets noted on day after admission - 75 -> 17 - presumed to be immune mediated and started empiric steroids yesterday. Responding to steroids - platelets 31K today. Has had 3 doses of steroids - sufficient - can hold tomorrow's dose. If platelet count tomorrow morning < 50K then can give additional 20mgs Dex (po)
--- NOTE | 2019-03-25 15:04 | PN ---
Physical Exam: SUBJECTIVE: Patient seen and examined. She reports feeling energetic the last couple days but has become more lethargic "blah" today. She denies fever, chills , anxiety, chest pain, abdominal pain, nausea, vomiting. She reports mild constipation and abdominal distention. OBJECTIVE: Vital Signs Period Temp Pulse Resp BP Sys/May Pulse Ox Last 24 Hr 97.5 F-97.8 F 72-80 20-20 142-155/74-83 98 GENERAL: The patient is awake, alert, and fully oriented, in no acute distress. HEAD: Normal with no signs of trauma, flushed cheeks EYES: PERRL, extraocular movements intact, conjunctiva clear. ENT: Ears normal, nares patent, moist mucous membranes. NECK: Trachea midline, full range of motion, supple. LUNGS: Clear to auscultation bilaterally HEART: Regular rate and rhythm, 2/6 systolic murmur ABDOMEN: Soft, nontender, nondistended, normoactive bowel sounds EXTREMITIES: Warm, well-perfused, no edema. NEUROLOGICAL: Cranial nerves II through XII grossly intact. Normal speech, gait not observed. PSYCH: Mildly anxious SKIN: Warm, dry, normal turgor, diffuse ecchymosis on arms, and petechiae on center of chest Laboratory Results - last 24 hr 03/25/19 10:20 WBC 9.6 RBC 3.82 Hgb 12.2 Hct 34.3 MCV 89.8 MCH 31.9 MCHC 35.5 RDW 14.1 Plt Count 31 L* D MPV 11.9 H D Absolute Neuts (auto) 7.7 Neutrophils % 80.3 Lymphocytes % 9.9 D Monocytes % 9.6 D Eosinophils % 0.1 D Basophils % 0.1 Nucleated RBC % 0 Active Medications Generic Name Dose Route Start Last Admin Trade Name Freq PRN Reason Stop Dose Admin Acetaminophen 650 mg 03/21/19 17:09 03/25/19 05:35 Tylenol - PO 650 mg Q6H PRN Administration Fever Or Pain Amlodipine Besylate 2.5 mg 03/21/19 17:07 Norvasc - PO DAILY PRN SBP >140 Atenolol 50 mg 03/23/19 10:37 03/25/19 10:56 Tenormin - PO 50 mg BID [facility] Administration Atorvastatin Calcium 10 mg 03/22/19 22:00 03/24/19 21:32 Lipitor - PO Not Given HS [facility] Diazepam 2 mg 03/21/19 17:56 03/25/19 05:35 Valium - PO 2 mg TID PRN Administration ANXIETY Docusate Sodium 100 mg 03/21/19 22:00 03/25/19 06:13 Colace - PO Not Given TID [facility] Lisinopril 40 mg 03/21/19 22:00 03/25/19 10:56 Prinivil PO 40 mg BID [facility] Administration Pantoprazole Sodium 40 mg 03/23/19 10:00 03/25/19 10:55 Protonix - PO 40 mg DAILY [facility] Administration Polyethylene Glycol 17 gm 03/21/19 19:21 Miralax (For Bowel Prep) - PO Q12H PRN CONSTIPATION ASSESSMENT/PLAN: Ms. Gutierrez is an 88y/o female with ITP, HTN, HLD, anxiety, and CAD who presents with back pain and weakness. #ITP Plt 15-->31 -day 3 of decadron -heme/onc following- holding tomorrow's dose of steroids given increase in count , will give 20mg PO if platelets less than 50 #back pain, improved No UTI. Hx of compression fx. -encourage PT #hypokalemia, resolved -monitor labs #anxiety -diazepam PRN #HTN -lisinopril, atenolol, amlodipine #HLD -atorvastatin DVT Ppx SCDs FEN PO fluids monitor labs sodium controlled diet dispo med/surg, monitoring platelets Visit type - Emergency Visit Emergency Visit: Yes ED Registration Date: 03/21/19 Care time: The patient presented to the Emergency Department on the above date and was hospitalized for further evaluation of their emergent condition. - New Patient This patient is new to me today: No - Critical Care Critical Care patient: No - Discharge Referral Referred to [facility] Med P.C.: No ATTENDING PHYSICIAN STATEMENT I saw and evaluated the patient. I reviewed the resident's note and discussed the case with the resident. I agree with the resident's findings and plan as documented. SUBJECTIVE: OBJECTIVE: ASSESSMENT AND PLAN:
--- NOTE | 2019-03-25 17:51 | PN ---
Teaching Attending Note Name of Resident: Kaitlyn Souza ATTENDING PHYSICIAN STATEMENT I saw and evaluated the patient. I reviewed the resident's note and discussed the case with the resident. I agree with the resident's findings and plan as documented. SUBJECTIVE: Patient is feeling better with no acute distress. Vital Signs Temperature 98.4 F 03/25/19 14:00 Pulse Rate 81 03/25/19 14:00 Respiratory Rate 20 03/25/19 14:00 Blood Pressure 115/60 03/25/19 14:00 O2 Sat by Pulse Oximetry (%) 98 03/24/19 21:00 GENERAL: The patient is awake, alert, and fully oriented, in no acute distress. HEAD: Normal with no signs of trauma. EYES: PERRL, extraocular movements intact, sclera anicteric, conjunctiva clear. ENT: Ears normal, oropharynx clear without exudates, moist mucous membranes. NECK: Trachea midline, full range of motion, supple. LUNGS: Breath sounds equal, clear to auscultation bilaterally, no wheezes, no crackles, no accessory muscle use. HEART: Regular rate and rhythm, S1, S2 positive, robb 2/6 LSB no rub or gallop. ABDOMEN: Soft, nontender, nondistended, normoactive bowel sounds, no guarding, no rebound, no hepatosplenomegaly, no masses. EXTREMITIES: 2+ pulses, warm, well-perfused, no edema. NEUROLOGICAL: Cranial nerves II through XII grossly intact. Normal speech, gait not observed. PSYCH: Normal mood, normal affect. SKIN: Warm, dry, normal turgor, no rashes or lesions noted CBCD WBC 9.6 K/mm3 (4.0-10.0) 03/25/19 10:20 RBC 3.82 M/mm3 (3.60-5.2) 03/25/19 10:20 Hgb 12.2 GM/dL (10.7-15.3) 03/25/19 10:20 Hct 34.3 % (32.4-45.2) 03/25/19 10:20 MCV 89.8 fl (80-96) 03/25/19 10:20 MCHC 35.5 g/dl (32.0-36.0) 03/25/19 10:20 RDW 14.1 % (11.6-15.6) 03/25/19 10:20 Plt Count 31 K/MM3 (134-434) L* D 03/25/19 10:20 MPV 11.9 fl (7.5-11.1) H D 03/25/19 10:20 CMP Sodium 134 mmol/L (136-145) L 03/24/19 07:32 Potassium 4.6 mmol/L (3.5-5.1) 03/24/19 07:32 Chloride 100 mmol/L (98-107) 03/24/19 07:32 Carbon Dioxide 27 mmol/L (21-32) 03/24/19 07:32 Anion Gap 7 MMOL/L (8-16) L 03/24/19 07:32 BUN 9.4 mg/dL (7-18) 03/24/19 07:32 Creatinine 0.6 mg/dL (0.55-1.3) 03/24/19 07:32 Random Glucose 110 mg/dL (74-106) H 03/24/19 07:32 Calcium 9.3 mg/dL (8.5-10.1) 03/24/19 07:32 Total Bilirubin 0.9 mg/dL (0.2-1) 03/24/19 07:32 AST 18 U/L (15-37) 03/24/19 07:32 ALT 15 U/L (13-61) 03/24/19 07:32 Alkaline Phosphatase 77 U/L (45-117) 03/24/19 07:32 Total Protein 6.1 g/dl (6.4-8.2) L 03/24/19 07:32 Albumin 3.6 g/dl (3.4-5.0) 03/24/19 07:32 CARDIAC ENZYMES Creatine Kinase 130 U/L (26-192) 03/21/19 11:36 Troponin I < 0.02 ng/ml (0.00-0.05) 03/21/19 11:36 Current Medications Generic Name Dose Route Start Last Admin Trade Name Freq PRN Reason Stop Dose Admin Acetaminophen 650 mg 03/21/19 17:09 03/25/19 05:35 Tylenol - PO 650 mg Q6H PRN Administration Fever Or Pain Amlodipine Besylate 2.5 mg 03/21/19 17:07 Norvasc - PO DAILY PRN SBP >140 Atenolol 50 mg 03/23/19 10:37 03/25/19 10:56 Tenormin - PO 50 mg BID MARBELLA Administration Atorvastatin Calcium 10 mg 03/22/19 22:00 03/24/19 21:32 Lipitor - PO Not Given HS MARBELLA Diazepam 2 mg 03/21/19 17:56 03/25/19 05:35 Valium - PO 2 mg TID PRN Administration ANXIETY Docusate Sodium 100 mg 03/21/19 22:00 03/25/19 17:27 Colace - PO Not Given TID MARBELLA Lisinopril 40 mg 03/21/19 22:00 03/25/19 10:56 Prinivil PO 40 mg BID MARBELLA Administration Pantoprazole Sodium 40 mg 03/23/19 10:00 03/25/19 10:55 Protonix - PO 40 mg DAILY MARBELLA Administration Polyethylene Glycol 17 gm 03/21/19 19:21 Miralax (For Bowel Prep) - PO Q12H PRN CONSTIPATION Home Medications Medication Instructions Recorded Amlodipine Besylate 2.5 mg PO DAILY PRN 05/11/18 Atenolol [Tenormin] 50 mg PO BID 05/11/18 Lisinopril [Prinivil -] 40 mg PO BID 05/11/18 Lovastatin 40 mg PO DAILY 05/11/18 Polyethylene Glycol 3350 [Miralax 17 gm PO BID PRN #1 btl 08/01/18 (For Bowel Prep) -] Diazepam 2 mg PO TID PRN 03/21/19 Docusate Sodium [Colace] 100 mg PO TID 03/21/19 03/21/19 13:19 Urine - Urine - Catheterized Urine Culture - Final NO GROWTH OBTAINED ASSESSMENT AND PLAN: Patient is an 88 y/o female with PMHx of HTN, HLD, ITP, CAD, anxiety presents to the ED with complaints of weakness and back pain and was found to have a UTI #ITP with platelets of 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 as per hem/onc decadron - 20 mg IV x 3/4 days ,Daily CBC' s If no response- increase in dosage as per hem/onc, then decadron 40 p.o. x 4 days as out patient #Acute UTI s/p Rocephin , will dc the antibiotic, since no urinary cx is negative and the patient has neg. symptoms, will dc the iv antibiotic # Acute Back Pain: CT scans show chronic thoracic and lumbar fractures, tylneol PRN for pain relief #Hypokalemia: repleted #HTN : continue amlodipine, atenolol, lisinopril #HLD: continue statin #Anxiety: continue home Diazepam PRN DVT px: SCds
[2019-03-25] MEDS: ATORVASTATIN CA 10 MG TABLET (FP) PO SCH (22:28)
[2019-03-26] MEDS: DOCUSATE SODIUM 100 MG CAPSULE (FP) PO SCH ×4 (05:10→21:57)
[2019-03-26 08:38] LABS: HEMATOCRIT 34.1 % (32.4-45.2); HEMOGLOBIN 12.2 GM/dL (10.7-15.3); LYMPH % 10.9 % (8-40); MCH 31.7 pg (25.7-33.7); MCHC 35.8 g/dl (32.0-36.0); MEAN CELL VOLUME 88.6 fl (80-96); MEAN PLT VOLUME 11.5 fl (7.5-11.1); MONO % 6.4 % (3.8-10.2); NEUT % 82.7 % (42.8-82.8); PLATELET COUNT 47 K/MM3 (134-434); RBC 3.85 M/mm3 (3.60-5.2); WHITE BLOOD COUNT 7.3 K/mm3 (4.0-10.0)
[2019-03-26 09:03] LABS: BLOOD UREA NITROGEN 12.8 mg/dL (7-18); CALCIUM 9.2 mg/dL (8.5-10.1); CREATININE 0.6 mg/dL (0.55-1.3); PHOSPHOROUS 3.3 mg/dL (2.5-4.9); POTASSIUM 3.9 mmol/L (3.5-5.1)
[2019-03-26] MEDS: LISINOPRIL 20 MG TABLET (FP) PO SCH ×2 (10:08→21:57)
[2019-03-26] MEDS: diazePAM 2 MG TABLET PO PRN (11:08)
[2019-03-26] MEDS: ATENOLOL 25 MG TABLET (FP) PO SCH ×2 (11:09→21:57)
[2019-03-26] MEDS: PANTOPRAZOLE 40 MG TABLET (FP) PO SCH (11:09)
--- NOTE | 2019-03-26 11:35 | PN ---
Physical Exam: Heme/Onc Service SUBJECTIVE: Patient seen and examined at bedside. Pt states she got a mild headache from the steroids. Otherwise, no complaints. No new bruising/bleeding. OBJECTIVE: Vital Signs Period Temp Pulse Resp BP Sys/May Pulse Ox Last 24 Hr 97.9 F-98.4 F 66-81 18-20 115-156/52-87 97 Gen: AAOx3, NAD HEENT: few scattered petichiae on forehead, otherwise, NCAT, EOMI Neck: no jvd Cardio: hyperdynamic sustained PMI L midclavicular line, rrr, norm s1s2, no mrg Pulm: cta b/l Breast: no nodules/lumps noted Abd: mildly distended, normal BS, nontender, no organomegally Ext: 2+ L DP, 1+ R DP, no edema, several echymotic papules on L forearm at blood draw sites Laboratory Results - last 24 hr 03/26/19 03/26/19 07:20 07:20 WBC 7.3 RBC 3.85 Hgb 12.2 Hct 34.1 MCV 88.6 MCH 31.7 MCHC 35.8 RDW 14.0 Plt Count 47 L D MPV 11.5 H Absolute Neuts (auto) 6.1 Neutrophils % 82.7 Lymphocytes % 10.9 Monocytes % 6.4 Eosinophils % 0.0 D Basophils % 0.0 Nucleated RBC % 0 Sodium 134 L Potassium 3.9 Chloride 99 Carbon Dioxide 27 Anion Gap 8 BUN 12.8 Creatinine 0.6 Est GFR (CKD-EPI)AfAm 95.66 Est GFR (CKD-EPI)NonAf 82.53 Random Glucose 94 Calcium 9.2 Phosphorus 3.3 Magnesium 2.0 Active Medications Generic Name Dose Route Start Last Admin Trade Name Freq PRN Reason Stop Dose Admin Acetaminophen 650 mg 03/21/19 17:09 03/25/19 05:35 Tylenol - PO 650 mg Q6H PRN Administration Fever Or Pain Amlodipine Besylate 2.5 mg 03/21/19 17:07 Norvasc - PO DAILY PRN SBP >140 Atenolol 50 mg 03/23/19 10:37 03/26/19 11:09 Tenormin - PO 50 mg BID MARBELLA Administration Atorvastatin Calcium 10 mg 03/22/19 22:00 03/25/19 22:28 Lipitor - PO 10 mg HS MARBELLA Administration Dexamethasone 20 mg 03/26/19 12:00 Decadron - PO 03/26/19 12:01 ONCE ONE Diazepam 2 mg 03/21/19 17:56 03/26/19 11:08 Valium - PO 2 mg TID PRN Administration ANXIETY Docusate Sodium 100 mg 03/21/19 22:00 03/26/19 11:09 Colace - PO 100 mg TID MARBELLA Administration Lisinopril 40 mg 03/21/19 22:00 03/25/19 22:27 Prinivil PO 40 mg BID MARBELLA Administration Pantoprazole Sodium 40 mg 03/23/19 10:00 03/26/19 11:09 Protonix - PO 40 mg DAILY MARBELLA Administration Polyethylene Glycol 17 gm 03/21/19 19:21 Miralax (For Bowel Prep) - PO Q12H PRN CONSTIPATION ASSESSMENT/PLAN: Pt is an 88 y/o F with PMH HTN, HLD, ITP, CAD, anxiety who presented to ED with complaint of back pain and tingling in the fingers. In hospital, she was found to have thrombocytopenia. 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 ITP -thrombocytopenia -follows with Dr. Pritchett/Dr. Rust -Has received IVIG in the past. Most recently was given 4 day course of 40 mg daily Dexamethasone, which helped plts. Son states the dropped subsequently -usual plt count around 35, though 20 is not uncommon for her -plt improving, but still less than 50 today -receiving steroids Visit type - Emergency Visit Emergency Visit: No - New Patient This patient is new to me today: No - Critical Care Critical Care patient: No ATTENDING PHYSICIAN STATEMENT I saw and evaluated the patient. I reviewed the resident's note and discussed the case with the resident. I agree with the resident's findings and plan as documented. SUBJECTIVE: OBJECTIVE: ASSESSMENT AND PLAN:
[2019-03-26] MEDS ORDERED: DEXAMETHASONE 4 MG TABLET (FP) PO ONE (12:00)
--- NOTE | 2019-03-26 13:45 | PN ---
Physical Exam: SUBJECTIVE: Patient seen and examined. She reports a mild headache today as well as constipation. She denies chest pain, abdominal pain, nausea, or vomiting. OBJECTIVE: Vital Signs Period Temp Pulse Resp BP Sys/May Pulse Ox Last 24 Hr 97.9 F-98.4 F 66-81 18-20 115-156/52-87 97 GENERAL: The patient is awake, alert, and fully oriented, in no acute distress, eating breakfast. HEAD: Normal with no signs of trauma, mildly flushed cheeks EYES: PERRL, extraocular movements intact, conjunctiva clear. ENT: Ears normal, nares patent, moist mucous membranes. NECK: Trachea midline, full range of motion, supple. LUNGS: Clear to auscultation bilaterally HEART: Regular rate and rhythm, 2/6 systolic murmur ABDOMEN: Soft, nontender, mild distention, hyperactive bowel sounds EXTREMITIES: Warm, well-perfused, no edema. NEUROLOGICAL: Cranial nerves II through XII grossly intact. Normal speech, gait not observed. PSYCH: Normal mood and affect. SKIN: Warm, dry, normal turgor, diffuse ecchymosis on arms, and improved petechiae on center of chest Laboratory Results - last 24 hr 03/26/19 03/26/19 07:20 07:20 WBC 7.3 RBC 3.85 Hgb 12.2 Hct 34.1 MCV 88.6 MCH 31.7 MCHC 35.8 RDW 14.0 Plt Count 47 L D MPV 11.5 H Absolute Neuts (auto) 6.1 Neutrophils % 82.7 Lymphocytes % 10.9 Monocytes % 6.4 Eosinophils % 0.0 D Basophils % 0.0 Nucleated RBC % 0 Sodium 134 L Potassium 3.9 Chloride 99 Carbon Dioxide 27 Anion Gap 8 BUN 12.8 Creatinine 0.6 Est GFR (CKD-EPI)AfAm 95.66 Est GFR (CKD-EPI)NonAf 82.53 Random Glucose 94 Calcium 9.2 Phosphorus 3.3 Magnesium 2.0 Active Medications Generic Name Dose Route Start Last Admin Trade Name Freq PRN Reason Stop Dose Admin Acetaminophen 650 mg 03/21/19 17:09 03/25/19 05:35 Tylenol - PO 650 mg Q6H PRN Administration Fever Or Pain Amlodipine Besylate 2.5 mg 03/21/19 17:07 Norvasc - PO DAILY PRN SBP >140 Atenolol 50 mg 03/23/19 10:37 03/26/19 11:09 Tenormin - PO 50 mg BID MARBELLA Administration Atorvastatin Calcium 10 mg 03/22/19 22:00 03/25/19 22:28 Lipitor - PO 10 mg HS MARBELLA Administration Diazepam 2 mg 03/21/19 17:56 03/26/19 11:08 Valium - PO 2 mg TID PRN Administration ANXIETY Docusate Sodium 100 mg 03/21/19 22:00 03/26/19 11:09 Colace - PO 100 mg TID MARBELLA Administration Lisinopril 40 mg 03/21/19 22:00 03/26/19 10:08 Prinivil PO 40 mg BID MARBELLA Administration Pantoprazole Sodium 40 mg 03/23/19 10:00 03/26/19 11:09 Protonix - PO 40 mg DAILY MARBELLA Administration Polyethylene Glycol 17 gm 03/21/19 19:21 Miralax (For Bowel Prep) - PO Q12H PRN CONSTIPATION ASSESSMENT/PLAN: Ms. Gutierrez is an 88y/o female with ITP, HTN, HLD, anxiety, and CAD who presents with back pain and weakness. Platelets were found to be low at admission with another decrease the following day. #ITP Plt 31-->47 -decadron 20mg PO given today for platelets <50 -3 days of IV decadron given -continue Protonix with steroids -heme/onc following #back pain, improved No UTI. Hx of compression fx. -encourage PT #hypokalemia, resolved -monitor labs #anxiety -diazepam PRN #HTN -lisinopril, atenolol, amlodipine #HLD -atorvastatin DVT Ppx SCDs FEN PO fluids monitor labs sodium controlled diet dispo med/surg, monitoring platelets, discharge anticipated in next day if platelets are stable Visit type - Emergency Visit Emergency Visit: Yes ED Registration Date: 03/21/19 Care time: The patient presented to the Emergency Department on the above date and was hospitalized for further evaluation of their emergent condition. - New Patient This patient is new to me today: No - Critical Care Critical Care patient: No - Discharge Referral Referred to [facility] Med P.C[facility] No ATTENDING PHYSICIAN STATEMENT I saw and evaluated the patient. I reviewed the resident's note and discussed the case with the resident. I agree with the resident's findings and plan as documented. SUBJECTIVE: OBJECTIVE: ASSESSMENT AND PLAN:
--- NOTE | 2019-03-26 18:19 | PN ---
Teaching Attending Note Name of Resident: Kaitlyn Souza ATTENDING PHYSICIAN STATEMENT I saw and evaluated the patient. I reviewed the resident's note and discussed the case with the resident. I agree with the resident's findings and plan as documented. SUBJECTIVE: Patient is feeling better with no acute distress. Vital Signs Temperature 98.5 F 03/26/19 14:00 Pulse Rate 65 03/26/19 14:00 Respiratory Rate 18 03/26/19 14:00 Blood Pressure 142/68 03/26/19 14:00 O2 Sat by Pulse Oximetry (%) 97 03/26/19 09:00 GENERAL: The patient is awake, alert, and fully oriented, in no acute distress. HEAD: Normal with no signs of trauma. EYES: PERRL, extraocular movements intact, sclera anicteric, conjunctiva clear. ENT: Ears normal, oropharynx clear without exudates, moist mucous membranes. NECK: Trachea midline, full range of motion, supple. LUNGS: Breath sounds equal, clear to auscultation bilaterally, no wheezes, no crackles, no accessory muscle use. HEART: Regular rate and rhythm, S1, S2 positive, robb 2/6 LSB no rub or gallop. ABDOMEN: Soft, nontender, nondistended, normoactive bowel sounds, no guarding, no rebound, no hepatosplenomegaly, no masses. EXTREMITIES: 2+ pulses, warm, well-perfused, no edema. NEUROLOGICAL: Cranial nerves II through XII grossly intact. Normal speech, gait not observed. PSYCH: Normal mood, normal affect. SKIN: Warm, dry, normal turgor, no rashes or lesions noted CBCD WBC 7.3 K/mm3 (4.0-10.0) 03/26/19 07:20 RBC 3.85 M/mm3 (3.60-5.2) 03/26/19 07:20 Hgb 12.2 GM/dL (10.7-15.3) 03/26/19 07:20 Hct 34.1 % (32.4-45.2) 03/26/19 07:20 MCV 88.6 fl (80-96) 03/26/19 07:20 MCHC 35.8 g/dl (32.0-36.0) 03/26/19 07:20 RDW 14.0 % (11.6-15.6) 03/26/19 07:20 Plt Count 47 K/MM3 (134-434) L D 03/26/19 07:20 MPV 11.5 fl (7.5-11.1) H 03/26/19 07:20 CMP Sodium 134 mmol/L (136-145) L 03/26/19 07:20 Potassium 3.9 mmol/L (3.5-5.1) 03/26/19 07:20 Chloride 99 mmol/L (98-107) 03/26/19 07:20 Carbon Dioxide 27 mmol/L (21-32) 03/26/19 07:20 Anion Gap 8 MMOL/L (8-16) 03/26/19 07:20 BUN 12.8 mg/dL (7-18) 03/26/19 07:20 Creatinine 0.6 mg/dL (0.55-1.3) 03/26/19 07:20 Random Glucose 94 mg/dL (74-106) 03/26/19 07:20 Calcium 9.2 mg/dL (8.5-10.1) 03/26/19 07:20 Total Bilirubin 0.9 mg/dL (0.2-1) 03/24/19 07:32 AST 18 U/L (15-37) 03/24/19 07:32 ALT 15 U/L (13-61) 03/24/19 07:32 Alkaline Phosphatase 77 U/L (45-117) 03/24/19 07:32 Total Protein 6.1 g/dl (6.4-8.2) L 03/24/19 07:32 Albumin 3.6 g/dl (3.4-5.0) 03/24/19 07:32 CARDIAC ENZYMES Creatine Kinase 130 U/L (26-192) 03/21/19 11:36 Troponin I < 0.02 ng/ml (0.00-0.05) 03/21/19 11:36 Current Medications Generic Name Dose Route Start Last Admin Trade Name Freq PRN Reason Stop Dose Admin Acetaminophen 650 mg 03/21/19 17:09 03/25/19 05:35 Tylenol - PO 650 mg Q6H PRN Administration Fever Or Pain Amlodipine Besylate 2.5 mg 03/21/19 17:07 Norvasc - PO DAILY PRN SBP >140 Atenolol 50 mg 03/23/19 10:37 03/26/19 11:09 Tenormin - PO 50 mg BID MARBELLA Administration Atorvastatin Calcium 10 mg 03/22/19 22:00 03/25/19 22:28 Lipitor - PO 10 mg HS MARBELLA Administration Diazepam 2 mg 03/21/19 17:56 03/26/19 11:08 Valium - PO 2 mg TID PRN Administration ANXIETY Docusate Sodium 100 mg 03/21/19 22:00 03/26/19 15:35 Colace - PO Not Given TID MARBELLA Lisinopril 40 mg 03/21/19 22:00 03/26/19 10:08 Prinivil PO 40 mg BID MARBELLA Administration Pantoprazole Sodium 40 mg 03/23/19 10:00 03/26/19 11:09 Protonix - PO 40 mg DAILY MARBELLA Administration Polyethylene Glycol 17 gm 03/21/19 19:21 Miralax (For Bowel Prep) - PO Q12H PRN CONSTIPATION Home Medications Medication Instructions Recorded Amlodipine Besylate 2.5 mg PO DAILY PRN 05/11/18 Atenolol [Tenormin] 50 mg PO BID 05/11/18 Lisinopril [Prinivil -] 40 mg PO BID 05/11/18 Lovastatin 40 mg PO DAILY 05/11/18 Polyethylene Glycol 3350 [Miralax 17 gm PO BID PRN #1 btl 08/01/18 (For Bowel Prep) -] Diazepam 2 mg PO TID PRN 03/21/19 Docusate Sodium [Colace] 100 mg PO TID 03/21/19 03/21/19 13:19 Urine - Urine - Catheterized Urine Culture - Final NO GROWTH OBTAINED ASSESSMENT AND PLAN: Patient is an 88 y/o female with PMHx of HTN, HLD, ITP, CAD, anxiety presents to the ED with complaints of weakness and back pain and was found to have a UTI #ITP with platelets of 75K--> 15--> 16K-->15K-->31-->47 today , off rocephin now, hem/onc on the case. as per hem/onc decadron - 20 mg IV x 4/4 days completed as per hem/onc if platelets less than 47K , to give another dose of decadron 20mg po x 1 , repeat cbc in am #Acute UTI s/p Rocephin , will dc the antibiotic, since no urinary cx is negative and the patient has neg. symptoms, will dc the iv antibiotic # Acute Back Pain: CT scans show chronic thoracic and lumbar fractures, tylneol PRN for pain relief #Hypokalemia: repleted #HTN : continue amlodipine, atenolol, lisinopril #HLD: continue statin #Anxiety: continue home Diazepam PRN DVT px: SCds Responding to steroids - platelets 31K-->47k today. As per to hold decadron IV 20mg If platelet count tomorrow morning < 50K then can give additional 20mgs Dex (po)
[2019-03-26] MEDS: ATORVASTATIN CA 10 MG TABLET (FP) PO SCH (21:57)
[2019-03-27] MEDS: diazePAM 2 MG TABLET PO PRN (02:13)
[2019-03-27] MEDS: DOCUSATE SODIUM 100 MG CAPSULE (FP) PO SCH ×3 (06:06→22:38)
[2019-03-27] MEDS: ACETAMINOPHEN 325 MG TABLET (FP) PO PRN (06:30)
[2019-03-27 08:37] LABS: HEMATOCRIT 35.5 % (32.4-45.2); HEMOGLOBIN 12.8 GM/dL (10.7-15.3); MCH 31.8 pg (25.7-33.7); MCHC 36.1 g/dl (32.0-36.0); MEAN CELL VOLUME 88.1 fl (80-96); MEAN PLT VOLUME 11.6 fl (7.5-11.1); PLATELET COUNT 68 K/MM3 (134-434); RBC 4.03 M/mm3 (3.60-5.2); RDW 14.2 % (11.6-15.6); WHITE BLOOD COUNT 5.5 K/mm3 (4.0-10.0)
[2019-03-27 08:59] LABS: BLOOD UREA NITROGEN 16.1 mg/dL (7-18); CREATININE 0.6 mg/dL (0.55-1.3); POTASSIUM 3.7 mmol/L (3.5-5.1)
[2019-03-27] MEDS ORDERED: SODIUM CHLORIDE 1,000 ML IV SCH (09:15)
[2019-03-27] MEDS ORDERED: DEXAMETHASONE 4 MG TABLET (FP) PO ONE (11:38)
[2019-03-27] MEDS ORDERED: PT OWN MED DRAWER 7, Y5N ONE (12:04)
[2019-03-27] MEDS: LISINOPRIL 20 MG TABLET (FP) PO SCH ×2 (12:07→22:38)
[2019-03-27] MEDS: ATENOLOL 25 MG TABLET (FP) PO SCH ×2 (12:07→22:38)
[2019-03-27] MEDS: PANTOPRAZOLE 40 MG TABLET (FP) PO SCH (12:08)
[2019-03-27] MEDS ORDERED: SODIUM BICARBONATE 650 MG TABLET PO ONE (13:21)
--- NOTE | 2019-03-27 14:29 | PN ---
Physical Exam: SUBJECTIVE: Patient seen and examined. She reports a mild headache that is frontal and worse on the right side. She denies chest pain, abdominal pain, nausea, or vomiting. Pt had BM overnight. OBJECTIVE: Vital Signs Period Temp Pulse Resp BP Sys/May Pulse Ox Last 24 Hr 97.4 F-98.4 F 65-76 18-20 132-150/73-80 96-98 GENERAL: The patient is awake, alert, and fully oriented, in no acute distress HEAD: Normal with no signs of trauma EYES: PERRL, extraocular movements intact, conjunctiva clear. ENT: Ears normal, nares patent, moist mucous membranes. NECK: Trachea midline, full range of motion, supple. LUNGS: Clear to auscultation bilaterally HEART: Regular rate and rhythm, 2/6 systolic murmur ABDOMEN: Soft, nontender, mild distention, hyperactive bowel sounds EXTREMITIES: Warm, well-perfused, no edema. NEUROLOGICAL: Cranial nerves II through XII grossly intact. Normal speech, gait not observed. PSYCH: Normal mood and affect. SKIN: Warm, dry, normal turgor, diffuse ecchymosis on arms, and improved petechiae on center of chest Laboratory Results - last 24 hr 03/27/19 03/27/19 07:50 07:50 WBC 5.5 RBC 4.03 Hgb 12.8 Hct 35.5 MCV 88.1 MCH 31.8 MCHC 36.1 H RDW 14.2 Plt Count 68 L D MPV 11.6 H Sodium 131 L Potassium 3.7 Chloride 96 L Carbon Dioxide 31 Anion Gap 4 L BUN 16.1 Creatinine 0.6 Est GFR (CKD-EPI)AfAm 95.66 Est GFR (CKD-EPI)NonAf 82.53 Random Glucose 103 Calcium 9.0 Active Medications Generic Name Dose Route Start Last Admin Trade Name Freq PRN Reason Stop Dose Admin Acetaminophen 650 mg 03/21/19 17:09 03/27/19 06:30 Tylenol - PO 650 mg Q6H PRN Administration Fever Or Pain Amlodipine Besylate 2.5 mg 03/21/19 17:07 Norvasc - PO DAILY PRN SBP >140 Atenolol 50 mg 03/23/19 10:37 03/27/19 12:07 Tenormin - PO 50 mg BID MARBELLA Administration Atorvastatin Calcium 10 mg 03/22/19 22:00 03/26/19 21:57 Lipitor - PO 10 mg HS MARBELLA Administration Diazepam 2 mg 03/21/19 17:56 03/27/19 02:13 Valium - PO 2 mg TID PRN Administration ANXIETY Docusate Sodium 100 mg 03/21/19 22:00 03/27/19 06:06 Colace - PO 100 mg TID MARBELLA Administration Sodium Chloride 1,000 mls @ 50 mls/hr 03/27/19 09:15 Normal Saline - IV 03/28/19 09:02 ASDIR MARBELLA Lisinopril 40 mg 03/21/19 22:00 03/27/19 12:07 Prinivil PO 40 mg BID MARBELLA Administration Pantoprazole Sodium 40 mg 03/23/19 10:00 03/27/19 12:08 Protonix - PO 40 mg DAILY MARBELLA Administration Polyethylene Glycol 17 gm 03/21/19 19:21 03/26/19 21:57 Miralax (For Bowel Prep) - PO 17 gm Q12H PRN Administration CONSTIPATION ASSESSMENT/PLAN: Ms. Gutierrez is an 88y/o female with ITP, HTN, HLD, anxiety, and CAD who presents with back pain and weakness. Platelets were found to be low at admission with another decrease the following day. #ITP Plt 68 today -decadron 20mg PO given today for platelets -will continue steroid taper as out pt -continue Protonix with steroids -heme/onc following #back pain, improved No UTI. Hx of compression fx. -encourage PT #hypokalemia, resolved -monitor labs #anxiety -diazepam PRN #HTN -lisinopril, atenolol, amlodipine #HLD -atorvastatin DVT Ppx SCDs FEN PO fluids monitor labs sodium controlled diet dispo med/surg Visit type - Emergency Visit Emergency Visit: Yes ED Registration Date: 03/21/19 Care time: The patient presented to the Emergency Department on the above date and was hospitalized for further evaluation of their emergent condition. - New Patient This patient is new to me today: No - Critical Care Critical Care patient: No - Discharge Referral Referred to [facility] Med P.C.: No ATTENDING PHYSICIAN STATEMENT I saw and evaluated the patient. I reviewed the resident's note and discussed the case with the resident. I agree with the resident's findings and plan as documented. SUBJECTIVE: OBJECTIVE: ASSESSMENT AND PLAN:
--- NOTE | 2019-03-27 14:30 | PN ---
Physical Exam: SUBJECTIVE: Patient seen and examined at bedside. Continues to complain of headache. Son present at bedside states this is typical for the patient after receiving steroids for her ITP. Pt states she got medication, which helped. OBJECTIVE: Vital Signs Period Temp Pulse Resp BP Sys/May Pulse Ox Last 24 Hr 97.4 F-98.4 F 65-76 18-20 132-150/73-80 96-98 Gen: AAOx3, NAD HEENT: few scattered petichiae on forehead, otherwise, NCAT, EOMI Neck: no jvd Cardio: hyperdynamic sustained PMI L midclavicular line, rrr, norm s1s2, no mrg Pulm: cta b/l Breast: no nodules/lumps noted Abd: mildly distended, normal BS, nontender, no organomegally Ext: 2+ L DP, 1+ R DP, no edema, several echymotic papules on L forearm at blood draw sites Laboratory Results - last 24 hr 03/27/19 03/27/19 07:50 07:50 WBC 5.5 RBC 4.03 Hgb 12.8 Hct 35.5 MCV 88.1 MCH 31.8 MCHC 36.1 H RDW 14.2 Plt Count 68 L D MPV 11.6 H Sodium 131 L Potassium 3.7 Chloride 96 L Carbon Dioxide 31 Anion Gap 4 L BUN 16.1 Creatinine 0.6 Est GFR (CKD-EPI)AfAm 95.66 Est GFR (CKD-EPI)NonAf 82.53 Random Glucose 103 Calcium 9.0 Active Medications Generic Name Dose Route Start Last Admin Trade Name Freq PRN Reason Stop Dose Admin Acetaminophen 650 mg 03/21/19 17:09 03/27/19 06:30 Tylenol - PO 650 mg Q6H PRN Administration Fever Or Pain Amlodipine Besylate 2.5 mg 03/21/19 17:07 Norvasc - PO DAILY PRN SBP >140 Atenolol 50 mg 03/23/19 10:37 03/27/19 12:07 Tenormin - PO 50 mg BID MARBELLA Administration Atorvastatin Calcium 10 mg 03/22/19 22:00 03/26/19 21:57 Lipitor - PO 10 mg HS MARBELLA Administration Diazepam 2 mg 03/21/19 17:56 03/27/19 02:13 Valium - PO 2 mg TID PRN Administration ANXIETY Docusate Sodium 100 mg 03/21/19 22:00 03/27/19 06:06 Colace - PO 100 mg TID MARBELLA Administration Sodium Chloride 1,000 mls @ 50 mls/hr 03/27/19 09:15 Normal Saline - IV 03/28/19 09:02 ASDIR MARBELLA Lisinopril 40 mg 03/21/19 22:00 03/27/19 12:07 Prinivil PO 40 mg BID MARBELLA Administration Pantoprazole Sodium 40 mg 03/23/19 10:00 03/27/19 12:08 Protonix - PO 40 mg DAILY MARBELLA Administration Polyethylene Glycol 17 gm 03/21/19 19:21 03/26/19 21:57 Miralax (For Bowel Prep) - PO 17 gm Q12H PRN Administration CONSTIPATION ASSESSMENT/PLAN: Pt is an 88 y/o F with PMH HTN, HLD, ITP, CAD, anxiety who presented to ED with complaint of back pain and tingling in the fingers. In hospital, she was found to have thrombocytopenia. 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 ITP -thrombocytopenia -follows with Dr. Pritchett/Dr. Rust -Has received IVIG in the past. Most recently was given 4 day course of 40 mg daily Dexamethasone, which helped plts. Son states the dropped subsequently -completed steroids Visit type - Emergency Visit Emergency Visit: No - New Patient This patient is new to me today: No - Critical Care Critical Care patient: No ATTENDING PHYSICIAN STATEMENT I saw and evaluated the patient. I reviewed the resident's note and discussed the case with the resident. I agree with the resident's findings and plan as documented. SUBJECTIVE: OBJECTIVE: ASSESSMENT AND PLAN:
--- NOTE | 2019-03-27 14:52 | PN ---
Teaching Attending Note Name of Resident: Kaitlyn Souza ATTENDING PHYSICIAN STATEMENT I saw and evaluated the patient. I reviewed the resident's note and discussed the case with the resident. I agree with the resident's findings and plan as documented. SUBJECTIVE: Patient is feeling weak . Temperature 97.8 F 03/27/19 10:00 Pulse Rate 70 03/27/19 10:00 Respiratory Rate 20 03/27/19 10:00 Blood Pressure 148/80 03/27/19 10:00 O2 Sat by Pulse Oximetry (%) 98 03/27/19 09:00 GENERAL: The patient is awake, alert, and fully oriented, in no acute distress. HEAD: Normal with no signs of trauma. EYES: PERRL, extraocular movements intact, sclera anicteric, conjunctiva clear. ENT: Ears normal, oropharynx clear without exudates, moist mucous membranes. NECK: Trachea midline, full range of motion, supple. LUNGS: Breath sounds equal, clear to auscultation bilaterally, no wheezes, no crackles, no accessory muscle use. HEART: Regular rate and rhythm, S1, S2 positive, robb 2/6 LSB no rub or gallop. ABDOMEN: Soft, NT,ND, normoactive bowel sounds, no guarding, no rebound, no hepatosplenomegaly, no masses. EXTREMITIES: 2+ pulses, warm, well-perfused, no edema. NEUROLOGICAL: Cranial nerves II through XII grossly intact. Normal speech, gait not observed. PSYCH: Normal mood, normal affect. SKIN: Warm, dry, normal turgor, no rashes or lesions noted CBCD WBC 5.5 K/mm3 (4.0-10.0) 03/27/19 07:50 RBC 4.03 M/mm3 (3.60-5.2) 03/27/19 07:50 Hgb 12.8 GM/dL (10.7-15.3) 03/27/19 07:50 Hct 35.5 % (32.4-45.2) 03/27/19 07:50 MCV 88.1 fl (80-96) 03/27/19 07:50 MCHC 36.1 g/dl (32.0-36.0) H 03/27/19 07:50 RDW 14.2 % (11.6-15.6) 03/27/19 07:50 Plt Count 68 K/MM3 (134-434) L D 03/27/19 07:50 MPV 11.6 fl (7.5-11.1) H 03/27/19 07:50 CMP Sodium 131 mmol/L (136-145) L 03/27/19 07:50 Potassium 3.7 mmol/L (3.5-5.1) 03/27/19 07:50 Chloride 96 mmol/L (98-107) L 03/27/19 07:50 Carbon Dioxide 31 mmol/L (21-32) 03/27/19 07:50 Anion Gap 4 MMOL/L (8-16) L 03/27/19 07:50 BUN 16.1 mg/dL (7-18) 03/27/19 07:50 Creatinine 0.6 mg/dL (0.55-1.3) 03/27/19 07:50 Random Glucose 103 mg/dL (74-106) 03/27/19 07:50 Calcium 9.0 mg/dL (8.5-10.1) 03/27/19 07:50 Total Bilirubin 0.9 mg/dL (0.2-1) 03/24/19 07:32 AST 18 U/L (15-37) 03/24/19 07:32 ALT 15 U/L (13-61) 03/24/19 07:32 Alkaline Phosphatase 77 U/L (45-117) 03/24/19 07:32 Total Protein 6.1 g/dl (6.4-8.2) L 03/24/19 07:32 Albumin 3.6 g/dl (3.4-5.0) 03/24/19 07:32 CARDIAC ENZYMES Creatine Kinase 130 U/L (26-192) 03/21/19 11:36 Troponin I < 0.02 ng/ml (0.00-0.05) 03/21/19 11:36 Current Medications Generic Name Dose Route Start Last Admin Trade Name Freq PRN Reason Stop Dose Admin Acetaminophen 650 mg 03/21/19 17:09 03/27/19 06:30 Tylenol - PO 650 mg Q6H PRN Administration Fever Or Pain Amlodipine Besylate 2.5 mg 03/21/19 17:07 Norvasc - PO DAILY PRN SBP >140 Atenolol 50 mg 03/23/19 10:37 03/27/19 12:07 Tenormin - PO 50 mg BID MARBELLA Administration Atorvastatin Calcium 10 mg 03/22/19 22:00 03/26/19 21:57 Lipitor - PO 10 mg HS MARBELLA Administration Diazepam 2 mg 03/21/19 17:56 03/27/19 02:13 Valium - PO 2 mg TID PRN Administration ANXIETY Docusate Sodium 100 mg 03/21/19 22:00 03/27/19 06:06 Colace - PO 100 mg TID MARBELLA Administration Sodium Chloride 1,000 mls @ 50 mls/hr 03/27/19 09:15 Normal Saline - IV 03/28/19 09:02 ASDIR MARBELLA Lisinopril 40 mg 03/21/19 22:00 03/27/19 12:07 Prinivil PO 40 mg BID MARBELLA Administration Pantoprazole Sodium 40 mg 03/23/19 10:00 03/27/19 12:08 Protonix - PO 40 mg DAILY MARBELLA Administration Polyethylene Glycol 17 gm 03/21/19 19:21 03/26/19 21:57 Miralax (For Bowel Prep) - PO 17 gm Q12H PRN Administration CONSTIPATION Home Medications Medication Instructions Recorded Amlodipine Besylate 2.5 mg PO DAILY PRN 05/11/18 Atenolol [Tenormin] 50 mg PO BID 05/11/18 Lisinopril [Prinivil -] 40 mg PO BID 05/11/18 Lovastatin 40 mg PO DAILY 05/11/18 Polyethylene Glycol 3350 [Miralax 17 gm PO BID PRN #1 btl 08/01/18 255 gm Btl -] Diazepam 2 mg PO TID PRN 03/21/19 Docusate Sodium [Colace] 100 mg PO TID 03/21/19 Dexamethasone [Decadron] See Taper PO DAILY #23 tablet 03/27/19 Pantoprazole Sodium [Protonix -] 40 mg PO DAILY #30 tablet.ec 03/27/19 Urine Test Results Urine Color Yellow 03/21/19 13:19 Urine Appearance Clear 03/21/19 13:19 Urine pH >= 9.0 (5.0-8.0) H D 03/21/19 13:19 Ur Specific [employer] 1.005 (1.010-1.035) L 03/21/19 13:19 Urine Protein Negative (NEGATIVE) 03/21/19 13:19 Urine Glucose (UA) Negative (NEGATIVE) 03/21/19 13:19 Urine Ketones 1+ (NEGATIVE) H 03/21/19 13:19 Urine Blood Trace (NEGATIVE) 03/21/19 13:19 Urine Nitrite Negative (NEGATIVE) 03/21/19 13:19 Urine Bilirubin Negative (NEGATIVE) 03/21/19 13:19 Ur Leukocyte Esterase 3+ (NEGATIVE) H 03/21/19 13:19 03/21/19 13:19 Urine - Urine - Catheterized Urine Culture - Final NO GROWTH OBTAINED ASSESSMENT AND PLAN: Patient is an 88 y/o female with PMHx of HTN, HLD, ITP, CAD, anxiety presents to the ED with complaints of weakness and back pain and was found to have a UTI #ITP with platelets of 75K--> 15--> 16K-->15K-->31-->47-->68 today , off rocephin now, hem/onc on the case. as per hem/onc decadron - 20 mg IV x 4/4 days completed as per hem/onc if platelets less than 47K , to give another dose of decadron 20mg po x 1 given 20mg and platelets 68 today , will dc her on a taper dose decadron. #Acute UTI s/p Rocephin , will dc the antibiotic, since no urinary cx is negative and the patient has neg. symptoms, will dc the iv antibiotic # Acute Back Pain: CT scans show chronic thoracic and lumbar fractures, tylneol PRN for pain relief #Hypokalemia: repleted #HTN : continue amlodipine, atenolol, lisinopril #HLD: continue statin #Anxiety: continue home Diazepam PRN DVT px: SCds
--- NOTE | 2019-03-27 20:44 | PN ---
Progress Note (short form) - Note Progress Note: Patiet seen and examined IV steroids x 4 days with increse platelets to 68K Complains of tiredness ad fatigue. Would not taper steroids on discharge. Protocol is 4 days q month. No taper.
[2019-03-27] MEDS: ATORVASTATIN CA 10 MG TABLET (FP) PO SCH (22:38)
[2019-03-28] MEDS: DOCUSATE SODIUM 100 MG CAPSULE (FP) PO SCH ×2 (06:32→17:06)
[2019-03-28 08:22] LABS: HEMATOCRIT 35.7 % (32.4-45.2); HEMOGLOBIN 12.9 GM/dL (10.7-15.3); MCH 31.7 pg (25.7-33.7); MCHC 36.1 g/dl (32.0-36.0); MEAN CELL VOLUME 87.7 fl (80-96); MEAN PLT VOLUME 10.3 fl (7.5-11.1); PLATELET COUNT 93 K/MM3 (134-434); RBC 4.07 M/mm3 (3.60-5.2); RDW 14.1 % (11.6-15.6)
[2019-03-28 08:49] LABS: BLOOD UREA NITROGEN 13.7 mg/dL (7-18); CALCIUM 8.8 mg/dL (8.5-10.1); CREATININE 0.5 mg/dL (0.55-1.3); POTASSIUM 3.6 mmol/L (3.5-5.1)
[2019-03-28] MEDS ORDERED: DEXAMETHASONE 4 MG TABLET (FP) PO ONE (10:00)
[2019-03-28] MEDS: ATENOLOL 25 MG TABLET (FP) PO SCH (10:30)
[2019-03-28] MEDS: LISINOPRIL 20 MG TABLET (FP) PO SCH (10:30)
[2019-03-28] MEDS: PANTOPRAZOLE 40 MG TABLET (FP) PO SCH (10:30)
[2019-03-28 12:47] VITALS: TEMP 97.9
--- NOTE | 2019-03-28 14:19 | PN ---
Teaching Attending Note Name of Resident: Cony Fernandez ATTENDING PHYSICIAN STATEMENT I saw and evaluated the patient. I reviewed the resident's note and discussed the case with the resident. I agree with the resident's findings and plan as documented. SUBJECTIVE: no pain, no fever or chills. feels tired. OBJECTIVE: NAD Cv : RRR, 3/6 SM at LUSB and LLSB Lungs: CTAB Abd; soft, NT, ND , NL BS EXt: No edema or erythema ASSESSMENT AND PLAN: 88 y/o lady with h/o ITP, HTN, JLP, CAD, Anxiety who presented due to not feeling well and developed severe thrombocytopenia. 1- ITP with acute on chronic thrombocytopenia. now plt improved. no need for steroid taper f/u with Heme as out pt to determine on next step and timing of next steroids . - son was made aware of need to see Dr. Pritchett in 1 week 2- pyuria. neg urine cx before abx were given. no treatment 3- lower back pain , chronic Fx in T5, T7 .PT . dispo; dc home with VNS and PT today. d/w son and her
--- NOTE | 2019-03-28 15:21 | DS ---
Physical Exam: SUBJECTIVE: Patient seen and examined. She reports more energy than yesterday. Appetite is normal. She denies GAUTAM, chest pain, abdominal pain, shortness of breath, n/v, or constipation. OBJECTIVE: Vital Signs Period Temp Pulse Resp BP Sys/May Pulse Ox Last 24 Hr 97.4 F-98.7 F 68-82 20-20 139-169/66-79 97-99 PHYSICAL EXAM GENERAL: The patient is awake, alert, and fully oriented, in no acute distress HEAD: Normal with no signs of trauma EYES: PERRL, extraocular movements intact, conjunctiva clear. ENT: Ears normal, nares patent, moist mucous membranes. NECK: Trachea midline, full range of motion, supple. LUNGS: Clear to auscultation bilaterally HEART: Regular rate and rhythm, 2/6 systolic murmur ABDOMEN: Soft, nontender, mild distention, hyperactive bowel sounds EXTREMITIES: Warm, well-perfused, no edema. NEUROLOGICAL: Cranial nerves II through XII grossly intact. Normal speech, gait not observed. PSYCH: Normal mood and affect. SKIN: Warm, dry, normal turgor, diffuse ecchymosis on arms, and improved petechiae on center of chest LABS Laboratory Results - last 24 hr 03/28/19 03/28/19 07:27 07:27 WBC 7.0 RBC 4.07 Hgb 12.9 Hct 35.7 MCV 87.7 MCH 31.7 MCHC 36.1 H RDW 14.1 Plt Count 93 L D MPV 10.3 D Sodium 132 L Potassium 3.6 Chloride 96 L Carbon Dioxide 27 Anion Gap 9 BUN 13.7 Creatinine 0.5 L Est GFR (CKD-EPI)AfAm 101.57 Est GFR (CKD-EPI)NonAf 87.64 Random Glucose 98 Calcium 8.8 HOSPITAL COURSE: Ms. Gutierrez is an 88y/o female with ITP, HTN, HLD, anxiety, and CAD who presents with back pain and weakness. Platelets were found to be low at admission with another decrease the following day. She normally has decadron treatments routinely but missed last tx. She was treated prophylactically for UTI but d/c'ed once urine cx was negative. Pt was given decadron initially by IV then PO with daily improvements in platelet count. She experienced side effects (lethargy, GAUTAM, mood changes) which are normal for her per her reporting. Her symptoms did improve following decrease in dosage. She was stable for d/c and was instructed to follow up with hematology. Date of Admission:03/21/19 Date of Discharge: 03/28/19 Minutes to complete discharge: 35 Discharge Summary Problems reviewed: Yes Reason For Visit: UTI,THROMBOCYTOPENIA Current Active Problems Thrombocytopenia (Acute) Vertebral fracture, closed (Acute) Condition: Improved - Instructions Diet, Activity, Other Instructions: YOUR VISIT: You were admitted to the hospital because you were feeling weak and in pain. You labs showed your platelets were low. You were given steroids to increase them. You are now stable to go home. MEDICATIONS: Continue your home medications as directed FOLLOW UP: Dr. Mooney, primary care, in 1 week to have your platelets checked. Dr. Pritchett, hematology, in 1-2 weeks. To decied on next step in treating your ITP OTHER INSTRUCTIONS: Return to the emergency room or call 911 if you have chest pain, difficulty breathing, abdominal pain, dark or bloody stool, or uncontrolled bleeding. Referrals: Kyree Pritchett MD [Staff Physician] - 1 Month Epifanio Mooney MD [Primary Care Provider] - 1 Week Disposition: VNS/HOME HEALTH CARE - Home Medications Comprehensive Discharge Medication List: Ambulatory Orders Amlodipine Besylate 2.5 mg PO DAILY PRN 05/11/18 Atenolol [Tenormin] 50 mg PO BID 05/11/18 Lisinopril [Prinivil -] 40 mg PO BID 05/11/18 Lovastatin 40 mg PO DAILY 05/11/18 Polyethylene Glycol 3350 [Miralax 255 gm Btl -] 17 gm PO BID PRN #1 btl Diazepam 2 mg PO TID PRN 03/21/19 Docusate Sodium [Colace] 100 mg PO TID 03/21/19 This patient is new to me today: No Emergency Visit: Yes ED Registration Date: 03/21/19 Care time: The patient presented to the Emergency Department on the above date and was hospitalized for further evaluation of their emergent condition. Critical Care patient: No - Discharge Referral Referred to [facility] No ATTENDING PHYSICIAN STATEMENT I saw and evaluated the patient. I reviewed the resident's note and discussed the case with the resident. I agree with the resident's findings and plan as documented. SUBJECTIVE: OBJECTIVE: ASSESSMENT AND PLAN:
[2019-03-28 15:46] VITALS: BP 139/63; PULSE 75
== END 2019-03-28 17:10 | disposition home health service (06) | DRG 813 ==
LOC: JER 10:54 → JERBED 15:53 → J5S 17:22
PROVIDERS: ADMIT Internal Medicine; ATTEND Internal Medicine
DX: D69.3 Immune thrombocytopenic purpura (principal); S22.069A Unspecified fracture of T7-T8 vertebra, initial encounter for closed fracture; N39.0 Urinary tract infection, site not specified; I10 Essential (primary) hypertension; E78.5 Hyperlipidemia, unspecified; E87.6 Hypokalemia; I25.10 Atherosclerotic heart disease of native coronary artery without angina pectoris; F41.9 Anxiety disorder, unspecified; T14.90XA Injury, unspecified, initial encounter; X58.XXXA Exposure to other specified factors, initial encounter; Y93.89 Activity, other specified; Y99.9 Unspecified external cause status
CPT/HCPCS: 36415; 71046-TC-FY; 72128-TC; 72131-TC; 80048; 80053; 81003; 82550; 83735; 84100; 84484; 85025; 85027; 85610; 86850; 86900; 86901; 87086; 93005; 93010; 97116-GP; 97161-GP; 99285-25; J0131; J1100; J7030

== ENCOUNTER 2021-11-01 14:20 | Emergency (ER) | payer BC, OTHER ==
[2021-11-01 14:35] VITALS: BP 135/82; PULSE 74; TEMP 97.8; BMI 21.0
[2021-11-01] MEDS ORDERED: ACETAMINOPHEN 500 MG TABLET (FP) PO ONE (15:45)
[2021-11-01] MEDS ORDERED: ACETAMINOPHEN 325 MG TABLET (FP) ONE (16:00)
== END 2021-11-01 18:32 | disposition home or self-care (01) ==
LOC: FER 14:20
DX: M25.571 Pain in right ankle and joints of right foot (principal)
CPT/HCPCS: 73560-TC-RT-FY; 73610-TC-RT-FY; 73630-TC-RT-FY; 93971-TC; 99284-25